=== PATIENT | male | born 1935 | race Caucasian/White ===

== ENCOUNTER → 2017-01-03 | Outpatient (CLI) | payer MEDICARE ==
[2017-01-03 13:48] LABS: CHCM 32.3; HCT 39.9 % (39.0-53.0); HDW 2.68; HGB 13.1 gm/dL (13.0-17.5); MCH 28.5 pg (25.0-35.0); MCHC 32.7 g/dL (31.0-37.0); MCV 87.1 fL (80.0-100.0); Mean Platelet Volume 8.2; RBC 4.59 m/uL (4.30-5.90); RDW 12.9 % (11.5-15.5); WBC 8.5 k/uL (3.8-10.6)
--- NOTE | 2017-01-03 13:57 | XR ---
EXAMINATION TYPE: XR chest 2V DATE OF EXAM: 01/03/2017 1:26 PM COMPARISON: Prior chest x-ray dated May 2012 HISTORY: Cough TECHNIQUE: Frontal and lateral views of the chest are obtained. FINDINGS: There is no focal air space opacity, pleural effusion, or pneumothorax seen. The cardiac silhouette size is within normal limits. Postop changes are noted at the cervical spine. There is a s shima curvature. Arthropathy noted at the acromioclavicular joints. Prominent lung volumes suggests u nderlying COPD. Suspect there are coronary artery calcifications. Postop changes noted to the abdomin al aorta. The osseous structures are intact. IMPRESSION: No acute cardiopulmonary process. Emphysema, follow-up as indicated. Coronary artery dis ease. Additional findings above.
[2017-01-03 14:01] LABS: ALT 37 U/L (21-72); AST 18 U/L (17-59); Alkaline Phosphatase 81 U/L (38-126); Anion Gap 11 mmol/L; Blood Urea Nitrogen 15 mg/dL (9-20); Calcium 9.1 mg/dL (8.4-10.2); Carbon Dioxide 28 mmol/L (22-30); Chloride 105 mmol/L (98-107); Cholesterol 130 mg/dL (<200); Glucose 141 mg/dL (74-99); HDL Cholesterol 35 mg/dL (40-60); Non-African American GFR(MDRD) >60 (>60 ml/min/1.73 sqM); Potassium 4.6 mmol/L (3.5-5.1); Sodium 144 mmol/L (137-145); Total Bilirubin 1.1 mg/dL (0.2-1.3); Total Protein 7.2 g/dL (6.3-8.2); Triglycerides 143 mg/dL (<150)
== END | disposition home or self-care (01) ==
LOC: LABWHC1 13:00
PROVIDERS: ATTEND Internal Medicine
DX: Z00.01 Encounter for general adult medical examination with abnormal findings (principal); E11.9 Type 2 diabetes mellitus without complications; I11.9 Hypertensive heart disease without heart failure; I25.10 Atherosclerotic heart disease of native coronary artery without angina pectoris; E78.2 Mixed hyperlipidemia; R61 Generalized hyperhidrosis
CPT/HCPCS: 36415; 71020; 80053; 80061; 82043; 83036; 84153; 85027

== ENCOUNTER → 2017-03-27 | Outpatient (CLI) | payer MEDICARE ==
[2017-03-27 13:33] LABS: ALT 30 U/L (21-72); AST 19 U/L (17-59); Alkaline Phosphatase 75 U/L (38-126); Anion Gap 10 mmol/L; Blood Urea Nitrogen 15 mg/dL (9-20); Calcium 9.7 mg/dL (8.4-10.2); Carbon Dioxide 29 mmol/L (22-30); Chloride 104 mmol/L (98-107); Cholesterol 147 mg/dL (<200); Glucose 126 mg/dL (74-99); HDL Cholesterol 40 mg/dL (40-60); Non-African American GFR(MDRD) >60 (>60 ml/min/1.73 sqM); Sodium 143 mmol/L (137-145); Total Bilirubin 1.1 mg/dL (0.2-1.3); Total Protein 7.2 g/dL (6.3-8.2); Triglycerides 208 mg/dL (<150)
== END | disposition home or self-care (01) ==
LOC: LABWHC1 12:49
PROVIDERS: ATTEND Internal Medicine Interventional Cardiology
DX: E78.2 Mixed hyperlipidemia (principal)
CPT/HCPCS: 36415; 80053; 80061

== ENCOUNTER → 2017-07-20 | Outpatient (CLI) | payer MEDICARE ==
[2017-07-20 12:56] LABS: Anion Gap 10 mmol/L; Blood Urea Nitrogen 19 mg/dL (9-20); Calcium 8.9 mg/dL (8.4-10.2); Carbon Dioxide 25 mmol/L (22-30); Chloride 106 mmol/L (98-107); Glucose 129 mg/dL (74-99); Non-African American GFR(MDRD) >60 (>60 ml/min/1.73 sqM); Potassium 4.2 mmol/L (3.5-5.1); Sodium 141 mmol/L (137-145)
[2017-07-20 16:33] LABS: Urine Creatinine 91.3 mg/dL
[2017-07-20 17:48] LABS: Hemoglobin A1C 5.9 % (4.2-6.1)
== END | disposition home or self-care (01) ==
LOC: LABWHC1 12:06
PROVIDERS: ATTEND Internal Medicine
DX: I11.9 Hypertensive heart disease without heart failure (principal); E11.9 Type 2 diabetes mellitus without complications; K21.0 Gastro-esophageal reflux disease with esophagitis
CPT/HCPCS: 36415; 80048; 82043; 82570; 83036

== ENCOUNTER → 2017-10-02 | Outpatient (CLI) | payer MEDICARE ==
[2017-10-02 13:13] LABS: ALT 34 U/L (21-72); AST 18 U/L (17-59); Cholesterol 139 mg/dL (<200); HDL Cholesterol 39 mg/dL (40-60)
== END | disposition home or self-care (01) ==
LOC: LABWHC1 11:43
PROVIDERS: ATTEND Internal Medicine Interventional Cardiology
DX: E78.2 Mixed hyperlipidemia (principal)
CPT/HCPCS: 36415; 80061; 84450; 84460

== ENCOUNTER → 2018-04-27 | Outpatient (CLI) | payer MEDICARE ==
[2018-04-27 10:59] LABS: ALT 30 U/L (21-72); AST 18 U/L (17-59); Albumin 3.9 g/dL (3.5-5.0); Alkaline Phosphatase 76 U/L (38-126); Anion Gap 10 mmol/L; Blood Urea Nitrogen 15 mg/dL (9-20); Calcium 8.6 mg/dL (8.4-10.2); Carbon Dioxide 25 mmol/L (22-30); Chloride 107 mmol/L (98-107); Cholesterol 114 mg/dL (<200); Glucose 165 mg/dL (74-99); HDL Cholesterol 30 mg/dL (40-60); LDL Cholesterol,Calculated 53 mg/dL (0-99); Potassium 4.5 mmol/L (3.5-5.1); Sodium 142 mmol/L (137-145); Total Bilirubin 1.1 mg/dL (0.2-1.3); Total Protein 6.3 g/dL (6.3-8.2); Triglycerides 154 mg/dL (<150)
== END | disposition home or self-care (01) ==
LOC: LABWHC1 10:18
PROVIDERS: ATTEND Internal Medicine Interventional Cardiology
DX: E78.2 Mixed hyperlipidemia (principal)
CPT/HCPCS: 36415; 80053; 80061

== ENCOUNTER 2018-05-29 13:41 | Emergency (ER) | payer MEDICARE, OTHER ==
[2018-05-29 13:47] VITALS: BP 118/66; PULSE 66; RESP 20; TEMP 98.5
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
--- NOTE | 2018-05-29 14:21 | XR ---
Left knee HISTORY: Trauma and pain, swelling 3 views of the left knee Bone mineralization and alignment are maintained. Mild joint space loss, marginal spurring compatible with osteoarthritic change. No sizable joint effusion. IMPRESSION: No fracture or dislocation is evident.
== END 2018-05-29 14:55 | disposition home or self-care (01) ==
LOC: EC 13:41
DX: S80.02XA Contusion of left knee, initial encounter (principal); I25.10 Atherosclerotic heart disease of native coronary artery without angina pectoris; E11.9 Type 2 diabetes mellitus without complications; E78.5 Hyperlipidemia, unspecified; I10 Essential (primary) hypertension; Z95.5 Presence of coronary angioplasty implant and graft; Z87.891 Personal history of nicotine dependence; Z79.82 Long term (current) use of aspirin; Z79.84 Long term (current) use of oral hypoglycemic drugs; Z79.899 Other long term (current) drug therapy; V89.2XXA Person injured in unspecified motor-vehicle accident, traffic, initial encounter; Y92.410 Unspecified street and highway as the place of occurrence of the external cause
CPT/HCPCS: 99283

== ENCOUNTER → 2018-07-13 | Outpatient (CLI) | payer MEDICARE ==
[2018-07-13 12:19] LABS: HGB 12.8 gm/dL (13.0-17.5); MCH 27.6 pg (25.0-35.0); MCHC 31.9 g/dL (31.0-37.0); MCV 86.5 fL (80.0-100.0); Mean Platelet Volume 7.9; Platelet Count 181 k/uL (150-450); RBC 4.62 m/uL (4.30-5.90); RDW 12.9 % (11.5-15.5); WBC 8.2 k/uL (3.8-10.6)
[2018-07-13 12:36] LABS: ALT 30 U/L (21-72); AST 18 U/L (17-59); Albumin 4.1 g/dL (3.5-5.0); Alkaline Phosphatase 77 U/L (38-126); Anion Gap 7 mmol/L; Blood Urea Nitrogen 20 mg/dL (9-20); Calcium 9.6 mg/dL (8.4-10.2); Carbon Dioxide 28 mmol/L (22-30); Chloride 105 mmol/L (98-107); Cholesterol 132 mg/dL (<200); Glucose 141 mg/dL (74-99); HDL Cholesterol 32 mg/dL (40-60); LDL Cholesterol,Calculated 74 mg/dL (0-99); Potassium 4.9 mmol/L (3.5-5.1); Sodium 140 mmol/L (137-145); Total Bilirubin 0.9 mg/dL (0.2-1.3); Triglycerides 132 mg/dL (<150)
== END | disposition home or self-care (01) ==
LOC: LABWHC1 11:28
PROVIDERS: ATTEND Internal Medicine
DX: Z00.00 Encounter for general adult medical examination without abnormal findings (principal); I11.9 Hypertensive heart disease without heart failure; E11.9 Type 2 diabetes mellitus without complications; E78.2 Mixed hyperlipidemia
CPT/HCPCS: 36415; 80053; 80061; 85027

== ENCOUNTER → 2018-10-22 | Outpatient (CLI) | payer MEDICARE | LOC: LABWHC1 12:12 | PROVIDERS: ATTEND Internal Medicine Interventional Cardiology | DX: E78.2 Mixed hyperlipidemia (principal) | CPT/HCPCS: 36415; 80061; 84450; 84460 ==

== ENCOUNTER 2018-12-19 21:20 | Inpatient (IN) | payer MEDICARE ==
[2018-12-19] MEDS ORDERED: HYDROmorphone 1 MG/ML 1 ML SYRINGE IVP STA (22:16)
--- NOTE | 2018-12-19 22:26 | ED ---
Back Pain HPI - General Source: patient, family Limitations: no limitations <Lucy Salinas - Last Filed: 12/20/18 01:41> <Keaton Velázquez - Last Filed: 12/21/18 08:27> - General Chief Complaint: Back Pain/Injury Stated Complaint: Fall Time Seen by Provider: 12/19/18 21:46 - History of Present Illness Initial Comments: 83-year-old male patient presents to the emergency department today for evaluation of left-sided back pain and abdominal pain. Patient states that on Monday he was in the garage when he fell backwards hitting the snowblower on the way down and then landing on the cement. Patient states he has been having left-sided back pain since, states now it is very difficult to move around due to the pain. Patient states he has had having a bandlike pain going on his lower abdomen since the fall as well. Patient states he did hit his head. He denies any loss of consciousness however states he has been having intermittent headaches since the injury. Denies any blurred or double vision. Denies any nausea or vomiting. Denies any numbness, tingling, or weakness to his extremities. Patient denies any radiation of pain down his legs. Denies any loss of bowel or bladder control. Denies any saddle anesthesia. Patient denies any hematuria, hematochezia, melena. Patient denies any recent rash, fever, chills, shortness breath, chest pain, abdominal pain, nausea, vomiting, diarrhea, constipation, numbness, tingling, dizziness, weakness, headache, visual changes, or any other complaints. (Lucy Salinas) - Related Data Home Medications Medication Instructions Recorded Confirmed Aspirin EC [Ecotrin Low Dose] 81 mg PO DAILY 05/29/18 12/19/18 Enalapril [Vasotec] 2.5 mg PO DAILY 05/29/18 12/19/18 Gabapentin [Neurontin] 300 mg PO TID 05/29/18 12/19/18 Simvastatin 40 mg PO HS 05/29/18 12/19/18 Vit A/Vit C/Vit E/Zinc/Copper 2 cap PO DAILY 05/29/18 12/19/18 [ICAPS SOFTGEL] glipiZIDE XL [Glucotrol Xl] 5 mg PO DAILY 05/29/18 12/19/18 Metoprolol Tartrate [Lopressor] 25 mg PO BID 12/19/18 12/19/18 Terazosin HCl 2 mg PO DAILY 12/19/18 12/19/18 metFORMIN HCL [Glucophage] 500 mg PO BID 12/19/18 12/19/18 Allergies Allergy/AdvReac Type Severity Reaction Status Date / Time No Known Allergies Allergy Verified 12/19/18 22:24 Review of Systems ROS Other: All systems not noted in ROS Statement are negative. <Lucy Salinas - Last Filed: 12/20/18 01:41> ROS Other: All systems not noted in ROS Statement are negative. <Keaton Velázquez - Last Filed: 12/21/18 08:27> ROS Statement: Those systems with pertinent positive or pertinent negative responses have been documented in the HPI. Past Medical History Past Medical History: Coronary Artery Disease (CAD), Diabetes Mellitus, Hyperlipidemia, Hypertension History of Any Multi-Drug Resistant Organisms: None Reported Past Surgical History: Heart Catheterization With Stent Past Psychological History: No Psychological Hx Reported Smoking Status: Former smoker Past Alcohol Use History: None Reported Past Drug Use History: None Reported <Lucy Salinas - Last Filed: 12/20/18 01:41> General Exam Limitations: no limitations General appearance: alert, in no apparent distress, other (Physical well- developed, well-nourished elderly male patient in no acute distress. Vital signs upon presentation are temperature 98.6F, pulse 96, respirations 20, blood pressure 146/68, pulse ox 95% on room air.) Eye exam: Present: normal appearance, PERRL, EOMI. Absent: scleral icterus, conjunctival injection, periorbital swelling ENT exam: Present: normal exam, normal oropharynx, mucous membranes moist Respiratory exam: Present: normal lung sounds bilaterally. Absent: respiratory distress, wheezes, rales, rhonchi, stridor Cardiovascular Exam: Present: regular rate, normal rhythm, normal heart sounds. Absent: systolic murmur, diastolic murmur, rubs, gallop, clicks GI/Abdominal exam: Present: soft, tenderness (Lower abdominal tenderness), normal bowel sounds. Absent: distended, guarding, rebound, rigid Extremities exam: Present: normal inspection, full ROM, normal capillary refill , other (Skin to the extremities is pink, warm, dry. Cap refills less than 3 seconds. Radial pulses 2+ and equal bilaterally. Posttibial pulses 2+ and equal bilaterally.). Absent: tenderness, pedal edema, joint swelling, calf tenderness Back exam: Present: normal inspection, tenderness (Tenderness from the left shoulder extending down to the left low back including flank tenderness), other (No flank ecchymosis). Absent: vertebral tenderness Neurological exam: Present: alert, oriented X3, CN II-XII intact Psychiatric exam: Present: normal affect, normal mood Skin exam: Present: warm, dry, intact, normal color. Absent: rash <Lucy Salinas - Last Filed: 12/20/18 01:41> Vital Signs 12/19/18 12/20/18 12/20/18 21:39 00:00 01:50 Temperature 98.6 F 98.8 F Pulse Rate 96 92 89 Respiratory 20 18 18 Rate Blood Pressure 146/68 161/80 138/81 O2 Sat by Pulse 95 94 L 96 Oximetry Medical Decision Making - Lab Data Result diagrams: 12/19/18 22:36 12/19/18 22:36 - Radiology Data Radiology results: report reviewed, image reviewed <Lucy Salinas - Last Filed: 12/20/18 01:41> - Lab Data Result diagrams: 12/19/18 22:36 12/19/18 22:36 <Keaton Velázquez - Last Filed: 12/21/18 08:27> - Medical Decision Making 83-year-old male patient presents to the emergency department today for evaluation of left-sided back pain, lower abdominal pain and intermittent headaches after expressing a fall on Monday. Physical examination did reveal left lateral back tenderness, left flank tenderness. There is lower abdominal tenderness as well. Lungs are clear to auscultation. Labs reviewed and are relatively unremarkable. CT of the chest, abdomen, pelvis with contrast was obtained and did reveal evidence of fractures to the eighth and ninth ribs. There is also evidence of bilateral patchy lower lobe infiltrates with a left- sided pleural effusion. Patient was hypoxic at 94% upon arrival. CT brain C- spine was obtained and showed no acute abnormalities. I did discuss findings and results with the patient. Given presence of pneumonia, pleural effusion, and rib fractures a saw he would benefit from inpatient admission with IV antibiotic administration. We will provide supplemental oxygen. My attending Dr. Velázquez did discuss the case with Dr. Folwers who accepts admission and requested pulmonary consult. (Lucy Salinas) I saw this patient in conjunction with the physician promotions assistant. I performed independent history and physical exam. Agree with case management. (Keaton Velázquez) - Lab Data Lab Results 12/19/18 12/19/18 12/19/18 Range/Units 22:30 22:36 22:36 WBC 8.6 (3.8-10.6) k/uL RBC 4.55 (4.30-5.90) m/uL Hgb 12.2 L (13.0-17.5) gm/dL Hct 38.7 L (39.0-53.0) % MCV 85.1 (80.0-100.0) fL MCH 26.8 (25.0-35.0) pg MCHC 31.5 (31.0-37.0) g/dL RDW 13.6 (11.5-15.5) % Plt Count 145 L (150-450) k/uL Neutrophils % 77 % Lymphocytes % 12 % Monocytes % 8 % Eosinophils % 2 % Basophils % 0 % Neutrophils # 6.6 (1.3-7.7) k/uL Lymphocytes # 1.0 (1.0-4.8) k/uL Monocytes # 0.7 (0-1.0) k/uL Eosinophils # 0.2 (0-0.7) k/uL Basophils # 0.0 (0-0.2) k/uL PT (9.0-12.0) sec INR (<1.2) APTT (22.0-30.0) sec Sodium 139 (137-145) mmol/L Potassium 4.5 (3.5-5.1) mmol/L Chloride 103 (98-107) mmol/L Carbon Dioxide 30 (22-30) mmol/L Anion Gap 6 mmol/L BUN 20 (9-20) mg/dL Creatinine 0.85 (0.66-1.25) mg/dL Est GFR (CKD-EPI)AfAm >90 (>60 ml/min/1.73 sqM) Est GFR (CKD-EPI)NonAf 82 (>60 ml/min/1.73 sqM) Glucose 157 H (74-99) mg/dL Calcium 9.9 (8.4-10.2) mg/dL Total Bilirubin 1.1 (0.2-1.3) mg/dL AST 22 (17-59) U/L ALT 27 (21-72) U/L Alkaline Phosphatase 80 (38-126) U/L Total Protein 6.8 (6.3-8.2) g/dL Albumin 3.9 (3.5-5.0) g/dL Urine Color Yellow Urine Appearance Clear (Clear) Urine pH 6.5 (5.0-8.0) Ur Specific [place] 1.026 (1.001-1.035) Urine Protein 1+ H (Negative) Urine Glucose (UA) Negative (Negative) Urine Ketones Trace H (Negative) Urine Blood Negative (Negative) Urine Nitrite Negative (Negative) Urine Bilirubin Negative (Negative) Urine Urobilinogen 3.0 (<2.0) mg/dL Ur Leukocyte Esterase Small H (Negative) Urine RBC 7 H (0-5) /hpf Urine WBC 7 H (0-5) /hpf Ur Squamous Epith Cells <1 (0-4) /hpf Hyaline Casts 7 H (0-2) /lpf Urine Mucus Many H (None) /hpf 12/19/18 Range/Units 22:36 WBC (3.8-10.6) k/uL RBC (4.30-5.90) m/uL Hgb (13.0-17.5) gm/dL Hct (39.0-53.0) % MCV (80.0-100.0) fL MCH (25.0-35.0) pg MCHC (31.0-37.0) g/dL RDW (11.5-15.5) % Plt Count (150-450) k/uL Neutrophils % % Lymphocytes % % Monocytes % % Eosinophils % % Basophils % % Neutrophils # (1.3-7.7) k/uL Lymphocytes # (1.0-4.8) k/uL Monocytes # (0-1.0) k/uL Eosinophils # (0-0.7) k/uL Basophils # (0-0.2) k/uL PT 9.7 (9.0-12.0) sec INR 0.9 (<1.2) APTT 23.1 (22.0-30.0) sec Sodium (137-145) mmol/L Potassium (3.5-5.1) mmol/L Chloride (98-107) mmol/L Carbon Dioxide (22-30) mmol/L Anion Gap mmol/L BUN (9-20) mg/dL Creatinine (0.66-1.25) mg/dL Est GFR (CKD-EPI)AfAm (>60 ml/min/1.73 sqM) Est GFR (CKD-EPI)NonAf (>60 ml/min/1.73 sqM) Glucose (74-99) mg/dL Calcium (8.4-10.2) mg/dL Total Bilirubin (0.2-1.3) mg/dL AST (17-59) U/L ALT (21-72) U/L Alkaline Phosphatase (38-126) U/L Total Protein (6.3-8.2) g/dL Albumin (3.5-5.0) g/dL Urine Color Urine Appearance (Clear) Urine pH (5.0-8.0) Ur Specific [place] (1.001-1.035) Urine Protein (Negative) Urine Glucose (UA) (Negative) Urine Ketones (Negative) Urine Blood (Negative) Urine Nitrite (Negative) Urine Bilirubin (Negative) Urine Urobilinogen (<2.0) mg/dL Ur Leukocyte Esterase (Negative) Urine RBC (0-5) /hpf Urine WBC (0-5) /hpf Ur Squamous Epith Cells (0-4) /hpf Hyaline Casts (0-2) /lpf Urine Mucus (None) /hpf - Radiology Data CT chest, abdomen, pelvis with contrast was obtained. Report was reviewed in its entirety. Impression by Dr. Lopez shows dilated thoracic esophagus unchanged compared to 05/23/2012 and consistent with reflux disease and esophageal dysfunction. Right renal cortical cyst increased compared to old exam. Multiple small calcified gallstones unchanged. Enlarged prostate. Mild T5 compression fracture probably not changed compared to old exam. Patchy bilateral lower lobe infiltrates and atelectasis with left pleural effusion. This appears new compared to old exam. There are acute fractures of the posterior left eighth and ninth ribs. 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 CT brain and C-spine without contrast was obtained. Report was reviewed in its entirety. Impression by Dr. Lopez shows mild atrophy. No acute intracranial abnormality. 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 No acute bony abnormality. No significant change compared to old exam. (Lucy Salinas) Disposition Decision to Admit Reason: Admit from [facility] Decision Date: 12/20/18 Decision Time: 01:21 <Lucy Salinas - Last Filed: 12/20/18 01:41> <Keaton Velázquez - Last Filed: 12/21/18 08:27> Clinical Impression: Multiple fractures of ribs, left side, initial encounter for closed fracture, Pneumonia of both lower lobes, Pleural effusion, left Disposition: ADMITTED IP TO THIS [facility] Condition: Serious
[2018-12-19 22:46] LABS: Basophils % (A) 0 %; Eosinophils # (A) 0.2 k/uL (0-0.7); Eosinophils % (A) 2 %; HCT 38.7 % (39.0-53.0); HGB 12.2 gm/dL (13.0-17.5); Lymphocytes % (A) 12 %; MCH 26.8 pg (25.0-35.0); MCHC 31.5 g/dL (31.0-37.0); MCV 85.1 fL (80.0-100.0); Mean Platelet Volume 8.6; Monocytes # (A) 0.7 k/uL (0-1.0); Monocytes % (A) 8 %; Neutrophils # (A) 6.6 k/uL (1.3-7.7); Neutrophils % (A) 77 %; Platelet Count 145 k/uL (150-450); RBC 4.55 m/uL (4.30-5.90); RDW 13.6 % (11.5-15.5); WBC 8.6 k/uL (3.8-10.6)
[2018-12-19 22:56] LABS: INR 0.9 (<1.2); Partial Thromboplastin Time 23.1 sec (22.0-30.0); Prothrombin Time 9.7 sec (9.0-12.0)
[2018-12-19 22:57] LABS: ALT 27 U/L (21-72); AST 22 U/L (17-59); Albumin 3.9 g/dL (3.5-5.0); Alkaline Phosphatase 80 U/L (38-126); Anion Gap 6 mmol/L; Blood Urea Nitrogen 20 mg/dL (9-20); Calcium 9.9 mg/dL (8.4-10.2); Carbon Dioxide 30 mmol/L (22-30); Chloride 103 mmol/L (98-107); Glucose 157 mg/dL (74-99); Potassium 4.5 mmol/L (3.5-5.1); Sodium 139 mmol/L (137-145); Total Bilirubin 1.1 mg/dL (0.2-1.3); Total Protein 6.8 g/dL (6.3-8.2)
[2018-12-19 23:06] LABS: Appearance,Urine Clear (Clear); Bilirubin,Urine Negative (Negative); Blood,Urine Negative (Negative); Color,Urine Yellow; Glucose,Urine (UA) Negative (Negative); Hyaline Casts,Urine 7 /lpf (0-2); Ketones,Urine Trace (Negative); Leukocyte Esterase,Urine Small (Negative); Mucus,Urine Many /hpf; Nitrite,Urine Negative (Negative); PH, Urine 6.5 (5.0-8.0); Protein,Urine 1+ (Negative); RBC,Urine 7 /hpf (0-5); Specific Gravity,Urine 1.026 (1.001-1.035); Squamous Epithelial Cell,Urine <1 /hpf (0-4); WBC,Urine 7 /hpf (0-5)
[2018-12-20] MEDS ORDERED: HYDROcodone/APAP 5-325MG 1 EACH TAB PO STA (00:06)
--- NOTE | 2018-12-20 00:09 | CT ---
EXAMINATION TYPE: CT ChestAbdPelvis w con DATE OF EXAM: 12/19/2018 COMPARISON: 05/23/2012 HISTORY: pt. fell from ladder on snowblower 2 days ago;evaluate for trauma. pt. c/o back pain CT DLP: 878.6 mGycm Automated exposure control for dose reduction was used. CONTRAST: CT scan of the chest, abdomen and pelvis is performed without Oral Contrast and with IV Contrast, pat ient injected with 100 mL of Isovue 300. FINDINGS: There is pulmonary emphysema. Thoracic aorta is atheromatous. There is no evidence of aneurysm or dis section. There is left pleural effusion. There is some infiltrate or atelectasis at the posterior compa g bases. There is moderate hiatal hernia. There is large thoracic esophagus with fluid level. There i s no pneumothorax. There is no evidence of a pulmonary mass. There is no pericardial effusion. There is 1 cm cyst anterior right lobe of the liver. Bile ducts are not dilated. Spleen appears willy l. There is no pancreatic mass. Gallbladder is contracted. There is no adrenal mass. Kidneys show satisfactory contrast opacification. There is 4.5 cm cyst uppe r pole right kidney. Abdominal aorta is atheromatous. There is intervertebral iliac artery endograft. There are numerous diverticula in the sigmoid colon. Prostate is enlarged. Prostate measures 6 cm. U rinary bladder distends smoothly. There is no free fluid in the pelvis. There is no evidence of a bow el obstruction. There is no inguinal hernia. There is no mesenteric edema. The appendix appears willy l. There is no sign of free air. There are spondylotic changes in the thoracic and lumbar spine. Ther e is 15% wedging of T5 vertebral body.: There is fracture left posterior eighth and ninth rib. 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 There is 4 cm aneurysm of the lower abdominal aorta. IMPRESSION: Dilated thoracic esophagus unchanged compared to 05/23/2012 and consistent with reflux dise ase and esophageal dysfunction. Right renal cortical cyst increased compared to old exam. Multiple small calcified gallstones unchang ed. Enlarged prostate. Mild T5 compression fracture probably not changed compared to old exam. Patchy bilateral lower lobe infiltrates and atelectasis with left pleural effusion. This appears new compared to old exam. There are acute fractures of the posterior left eighth and ninth ribs.
[2018-12-20] MEDS ORDERED: AZITHROMYCIN 500 MG in SODIUM CHLORIDE 0.9% 250 ML IVPB STA (01:01)
[2018-12-20] MEDS ORDERED: NALOXONE 0.4 MG/ML 1 ML VIAL IV PRN (01:11)
--- NOTE | 2018-12-20 01:26 | CT ---
EXAMINATION TYPE: CT brain cale soler DATE OF EXAM: 12/20/2018 COMPARISON: 05/23/2012 HISTORY: head and neck pain after fall x2 days ago. CT DLP: 1389.1 mGycm Automated exposure control for dose reduction was used. TECHNIQUE: CT scan of the head and cervical spine are performed without contrast. FINDINGS: There is mild cerebral cortical atrophy. There is no mass effect nor midline shift. There is no sign of intracranial hemorrhage. The calvarium is intact. There is partial opacification right maxillary sinus. There is some atrophy and encephalomalacia in the left temporal lobe. There is old anterior fusion surgery with a plate and screws from C3 to C5. There is narrowing and an terior spurring at C5-6 and C6-7. The facet joints are intact. The skull base appears intact. IMPRESSION: Mild atrophy. No acute intracranial abnormality. 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 No acute bony abnormality . No significant change compared to old exam.
[2018-12-20 03:10] VITALS: BMI 26.4
[2018-12-20 07:52] LABS: Glucose,Whole Blood 160 mg/dL (75-99)
[2018-12-20] MEDS: GABAPENTIN 300 MG CAP PO SCH ×3 (09:04→20:16)
[2018-12-20] MEDS: ASPIRIN 81 MG PO SCH (09:04)
[2018-12-20] MEDS: metFORMIN 500 MG TAB PO SCH ×2 (09:04→20:17)
[2018-12-20] MEDS: VIT A,C & E-LUTEIN-MINERALS 1 EACH TAB PO SCH (09:04)
[2018-12-20] MEDS: LISINOPRIL 5 MG TAB PO SCH (09:04)
[2018-12-20] MEDS: DOXAZOSIN 2 MG TAB PO SCH (09:04)
[2018-12-20] MEDS: HYDROcodone/APAP 5-325MG 1 EACH TAB PO PRN ×3 (09:10→20:23)
[2018-12-20] MEDS: METOPROLOL TARTRATE 25 MG TAB PO SCH ×2 (09:10→20:16)
--- NOTE | 2018-12-20 10:15 | P.CNPUL ---
<Jen Cantrell E - Last Filed: 12/20/18 10:03> History of Present Illness Consult date: 12/20/18 Requesting physician: Daron Flowers Reason for consult: pleural effusion Chief complaint: shortness of breath, pain History of present illness: HPI: This is an 83-year-old male patient being seen examined and evaluated today for consultation. This patient came in after he had a fall in his garage on Monday. The patient fell hitting the snowblower and he was approximately 2 steps up on a ladder. The patient has been having left-sided back pain ever since. He states he has had some difficulty with mobility due to the pain. Workup in the emergency room was completed with a CT of the chest abdomen and pelvis. That did reveal evidence of fractures to be a benign ribs. There is also some bilateral patchy lower lobe infiltrates with a small left-sided pleural effusion. These look more like pulmonary contusions rather than pneumonia. The patient states he has not had any shortness of breath cough congestion or sputum production prior to the fall. He had not been around any ill contacts. Denies any fevers, or chills. He does have a history of smoking approximately 1 pack per day for over 30 years however has not smoked in about 40 years. All labs and reports reviewed. Case is discussed with family who . Case was also discussed with attending Dr. Flowers. Review of Systems 14 point review of systems was completed and is negative unless noted above in HPI Past Medical History Past Medical History: Coronary Artery Disease (CAD), Cancer, Diabetes Mellitus, Hyperlipidemia, Hypertension Additional Past Medical History / Comment(s): Patient states he has prostate cancer, has chosen no treatment History of Any Multi-Drug Resistant Organisms: None Reported Past Surgical History: Heart Catheterization With Stent Additional Past Surgical History / Comment(s): Back surgery years ago, neck surgery appox 2010; patient had heart catheterization with stent, states approximately 1992; recalls he had stents in groin in 2002, 2004, 2006 Past Anesthesia/Blood Transfusion Reactions: No Reported Reaction Additional Past Anesthesia/Blood Transfusion Reaction / Comment(s): Patient aspirated post-surgically Past Psychological History: No Psychological Hx Reported Smoking Status: Former smoker Past Alcohol Use History: None Reported Past Drug Use History: None Reported - Past Family History Father Family Medical History: Cancer Mother Family Medical History: Diabetes Mellitus Medications and Allergies Home Medications Medication Instructions Recorded Confirmed Type Aspirin EC [Ecotrin Low Dose] 81 mg PO DAILY 05/29/18 12/19/18 History Enalapril [Vasotec] 2.5 mg PO DAILY 05/29/18 12/19/18 History Gabapentin [Neurontin] 300 mg PO TID 05/29/18 12/19/18 History Simvastatin 40 mg PO HS 05/29/18 12/19/18 History Vit A/Vit C/Vit E/Zinc/Copper 2 cap PO DAILY 05/29/18 12/19/18 History [ICAPS SOFTGEL] glipiZIDE XL [Glucotrol Xl] 5 mg PO DAILY 05/29/18 12/19/18 History Metoprolol Tartrate [Lopressor] 25 mg PO BID 12/19/18 12/19/18 History Terazosin HCl 2 mg PO DAILY 12/19/18 12/19/18 History metFORMIN HCL [Glucophage] 500 mg PO BID 12/19/18 12/19/18 History Allergies Allergy/AdvReac Type Severity Reaction Status Date / Time No Known Allergies Allergy Verified 12/19/18 22:24 Physical Exam Vitals: Vital Signs Temp Pulse Pulse Resp BP BP Pulse Ox 12/20/18 06:35 97.7 F 68 18 151/76 96 12/20/18 03:30 18 12/20/18 02:30 98.4 F 86 20 170/96 94 L 12/20/18 01:50 98.8 F 89 18 138/81 96 12/20/18 00:00 92 18 161/80 94 L 12/19/18 21:39 98.6 F 96 20 146/68 95 Intake and Output 12/19/18 12/20/18 12/20/18 22:59 06:59 14:59 Intake Total 400 Balance 400 Intake: Oral 400 Other: Voiding Method Toilet Urinal # Voids 2 # Bowel Movements 0 Weight 76.657 kg GENERAL EXAM: Alert, comfortable in no apparent distress. HEAD: Normocephalic. EYES: Normal reaction of pupils, equal size. NOSE: Clear with pink turbinates. THROAT: No erythema or exudates. NECK: No masses, no JVD. CHEST: No chest wall deformity. LUNGS: Equal air entry with no crackles, wheeze, rhonchi or dullness. Bases diminished CVS: S1 and S2 normal with no audible mumurs, regular rhythm. ABDOMEN: No hepatosplenomegaly, normal bowel sounds, no guarding or rigidity. EXTREMITIES: No edema noted, pedal pulses palpable. CENTRAL NERVOUS SYSTEM: No focal deficits, tone is normal in all 4 extremities. Results - Laboratory Findings CBC and BMP: 12/19/18 22:36 12/19/18 22:36 PT/INR, D-dimer PT 9.7 sec (9.0-12.0) 12/19/18 22:36 INR 0.9 (<1.2) 12/19/18 22:36 Abnormal lab findings: Abnormal Labs 12/19/18 12/19/18 12/19/18 22:30 22:36 22:36 Hgb 12.2 L Hct 38.7 L Plt Count 145 L Glucose 157 H POC Glucose (mg/dL) Urine Protein 1+ H Urine Ketones Trace H Ur Leukocyte Esterase Small H Urine RBC 7 H Urine WBC 7 H Hyaline Casts 7 H Urine Mucus Many H 12/20/18 07:24 Hgb Hct Plt Count Glucose POC Glucose (mg/dL) 160 H Urine Protein Urine Ketones Ur Leukocyte Esterase Urine RBC Urine WBC Hyaline Casts Urine Mucus - Diagnostic Findings CT scan - chest: report reviewed, image reviewed Assessment and Plan Assessment: Assessment Bilateral pulmonary contusions, doubtful of pneumonia Fractures of the eighth and ninth ribs Small left-sided pleural effusion COPD not acutely exacerbated Plan Patient is stable from pulmonary standpoint Small effusion no intervention needed for thoracentesis Medications have been reviewed and will be continued as ordered. Continue antibiotics prophylactically, may switch to oral on discharge Continue with pulmonary hygiene, coughing and deep breathing exercises, and supportive care. Supplemental oxygen to maintain oxygen saturations of 92% or better. Continue with incentive spirometer Albuterol every 6 hours via nebulizer GI and DVT prophylaxis. We will continue to monitor labs/results and adjust treatment as necessary. Thank you for this consultation we will continue to follow this patient with you I, the signing physician performed an examination of the patient, discussed and directed their management with the nurse practitioner. I have reviewed the nurse practitioner's note and agree with the documented findings, orders and plan of care. Nurse practitioner acting as a scribe the signing physician. <Navya Potts - Last Filed: 12/20/18 10:18> Physical Exam Osteopathic Statement: *. No significant issues noted on an osteopathic structural exam other than those noted in the History and Physical/Consult. Vitals: Vital Signs Temp Pulse Pulse Resp BP BP Pulse Ox 12/20/18 06:35 97.7 F 68 18 151/76 96 12/20/18 03:30 18 12/20/18 02:30 98.4 F 86 20 170/96 94 L 12/20/18 01:50 98.8 F 89 18 138/81 96 12/20/18 00:00 92 18 161/80 94 L 12/19/18 21:39 98.6 F 96 20 146/68 95 Intake and Output 12/19/18 12/20/18 12/20/18 22:59 06:59 14:59 Intake Total 400 Balance 400 Intake: Oral 400 Other: Voiding Method Toilet Urinal # Voids 2 # Bowel Movements 0 Weight 76.657 kg Results - Laboratory Findings CBC and BMP: 12/19/18 22:36 12/19/18 22:36 PT/INR, D-dimer PT 9.7 sec (9.0-12.0) 12/19/18 22:36 INR 0.9 (<1.2) 12/19/18 22:36 Abnormal lab findings: Abnormal Labs 12/19/18 12/19/18 12/19/18 22:30 22:36 22:36 Hgb 12.2 L Hct 38.7 L Plt Count 145 L Glucose 157 H POC Glucose (mg/dL) Urine Protein 1+ H Urine Ketones Trace H Ur Leukocyte Esterase Small H Urine RBC 7 H Urine WBC 7 H Hyaline Casts 7 H Urine Mucus Many H 12/20/18 07:24 Hgb Hct Plt Count Glucose POC Glucose (mg/dL) 160 H Urine Protein Urine Ketones Ur Leukocyte Esterase Urine RBC Urine WBC Hyaline Casts Urine Mucus Assessment and Plan Plan: Patient seen and examined. Patient denies feeling ill before his fall. He states he was good health. He denies any fevers and chills. Changes on computed tomography scan probably related to pulmonary contusion. Continue antibiotics at this time. Pain control for rib fractures. Incentive spirometry and pulmonary hygiene. Pleural effusion is too small for thoracentesis at this time. Would recommend follow-up computed tomography scan in 4-6 weeks to demonstrate resolution. Patient does have a history of asbestos exposure. Navya Potts,
[2018-12-20] MEDS: ALBUTEROL NEBULIZED 2.5 MG/3 ML INHALATION SCH ×3 (10:42→19:47)
[2018-12-20 11:50] LABS: Glucose,Whole Blood 187 mg/dL (75-99)
--- NOTE | 2018-12-20 12:29 | HP ---
HISTORY AND PHYSICAL DATE OF ADMISSION: 12/20/2018. HISTORY OF PRESENT ILLNESS: This is an 83-year-old white male, apparently he fell about 2 days ago and he was brought to the emergency room with complaints of severe left sided back pain. Apparently 2 days ago he fell in the garage. He fell backwards hitting the asset accountant and he landed on the cement floor and apparently he also hit his head when he fell. He started having severe left-sided back pain and it was difficult for him to move around because of the pain and he was brought to the emergency room. In the ER, the CT of the head did not show any acute changes. The CT of the chest showed fracture of the left posterior 8th and 9th ribs and also there was patchy bilateral infiltrate in the lower lobe. His CBC showed WBC count of 8.6, hemoglobin 12.2, platelet count 145,000. Sodium 139, potassium 4.5, BUN 20, and creatinine 0.85. Glucose 157. This patient was admitted to the hospital for further evaluation and treatment. PAST MEDICAL HISTORY: His past medical history reveals that he has a longstanding history of coronary artery disease, diabetes mellitus, hypertensive cardiovascular disease, cancer of the prostate and hyperlipidemia. CURRENT MEDICATION: His current medications include: 1. Vasotec 2.5 mg p.o. daily. 2. Neurontin 300 mg p.o. t.i.d. 3. Simvastatin 40 mg p.o. daily. 4. Multivitamin 1 daily. 5. Glipizide 5 mg daily. 6. Lopressor 25 mg b.i.d. 7. Terazosin 2 mg daily. 8. Metformin 500 mg p.o. b.i.d. ALLERGIES: He has no known drug allergies. He does not smoke and he does not drink alcohol. FAMILY HISTORY: Positive for diabetes and heart disease. REVIEW OF SYSTEMS: Patient complains of intermittent headaches since his fall and he has left back pain. His appetite has been good. Bowels regular. He has no shortness of breath or cough. He has no polyuria or dysuria. He has no neurological symptoms. PHYSICAL EXAMINATION: Physical examination reveals an 83-year-old white male, well nourished, and well. He is alert and oriented. There is no jaundice. There is no generalized lymphadenopathy. There are no petechia or bruises. Pulse 86 per minute, regular, blood pressure 146/68, temperature 98.6, respirations 20 per minute. EXAMINATION OF THE ENT: Negative. Neck is supple. There is no jugular venous distention. There is no goiter and there is no carotid bruit. Heart is in sinus rhythm. Lungs reveal diminished breath sounds of both bases and there is tenderness in the left lower back of the chest. ABDOMEN: Soft and nontender. There is no mass palpable. Examination of the lower extremities reveal no pitting edema. Neurological examination reveals no localizing signs. IMPRESSION: 1. Severe left low back pain. 2. Acute fracture of the left posterior 8th and 9th ribs. 3. Bilateral patchy infiltrate in the lower lobes. 4. Possible lower lobe pneumonia. 5. Coronary artery disease. 6. Diabetes mellitus. 7. Gastroesophageal reflux disease. 8. Hyperlipidemia. 9. Hypertensive cardiovascular disease. 10.History of cancer of the prostate. 11.Possible urinary tract infection with urinalysis showing increased WBC. PLAN: Patient will be admitted to the hospital and he will be placed back on his previous home medications and he will be started on IV antibiotics and will get a pulmonology consultation. He is currently on [place] for pain control. Overall prognosis is guarded. The diagnosis, prognosis and therapeutic plans were discussed in detail with the patient and also with his family. MMODL / IJN: [id number] /
--- NOTE | 2018-12-20 16:02 | P.GSCN ---
History of Present Illness Consult date: 12/20/18 Reason for Consult: Trauma status post fall Requesting physician: Daron Flowers History of present illness: CHIEF COMPLAINT: Status post fall HISTORY OF PRESENT ILLNESS: 83-year-old male who presented to the emergency room due to pain. Patient states he was in his garage on Monday when he fell off of a ladder approximately 3-4 feet off the ground. He has been experiencing left sided back pain since that time. Denies loss of consciousness. He denies abdominal pain. Denies nausea or vomiting. Denies fever or chills. Denies shortness of breath. Denies chest pain. PAST MEDICAL HISTORY: See list. PAST SURGICAL HISTORY: See list. MEDICATIONS: See list. ALLERGIES: See list. SOCIAL HISTORY: No illicit drug use. REVIEW OF SYSTEMS: CONSTITUTIONAL: Denies fever or chills. HEENT: Denies blurred vision, vision changes, or eye pain. Denies hemoptysis ENDOCRINE: Denies heat or cold intolerance. CARDIOVASCULAR: Denies chest pain or pressure. RESPIRATORY: Positive for left posterior chest wall pain. No shortness of breath. GASTROINTESTINAL: Denies abdominal pain. Denies nausea or vomiting. NEURO: Denies history of seizures. PSYCH: No depression or suicidal ideation HEMATOLOGIC: Denies bleeding disorders. LYMPHATIC: The patient denies any lumps and bumps around the neck. GENITOURINARY: Denies any blood in urine or increased urinary frequency. MUSCULOSKELETAL: Denies myalgias. Denies joint swelling. Denies decreased range of motion beyond patients baseline. SKIN: Denies pruitis. Denies rash. PHYSICAL EXAM: VITAL SIGNS: Currently stable. GENERAL: Well-developed in no acute distress. HEENT: No sclera icterus. Extraocular movements grossly intact. Moist buccal mucosa. Head is atraumatic, normocephalic. Hears conversational speech. No nasal drainage. NECK: Supple without lymphadenopathy. CHEST: Non-labored respirations and equal bilateral excursions. CARDIOVASCULAR: Regular rate with regular rhythm. Palpable 2+ radial pulses. ABDOMEN: Soft. Nondistended. MUSCULOSKELETAL: No clubbing, cyanosis or edema. NEUROLOGIC: No focal or lateralizing signs. Cranial nerves II through XII grossly intact. PSYCH: Appropriate affect. Alert and oriented to person, place and time. SKIN: Well perfused. Good skin turgor. ASSESSMENT: 1. Traumatic fall from ladder, approximately 3-4 feet per patient 2. Acute fracture of posterior left eighth and ninth rib PLAN: Pain control. Incentive spirometry. Activity as tolerated. Pulmonary on consult. Further recommendations pending patient course. Nurse practitioner note has been reviewed by physician. Signing provider agrees with the documented findings, assessment, and plan of care. Past Medical History Past Medical History: Coronary Artery Disease (CAD), Cancer, Diabetes Mellitus, Hyperlipidemia, Hypertension Additional Past Medical History / Comment(s): Patient states he has prostate cancer, has chosen no treatment History of Any Multi-Drug Resistant Organisms: None Reported Past Surgical History: Heart Catheterization With Stent Additional Past Surgical History / Comment(s): Back surgery years ago, neck surgery appox 2010; patient had heart catheterization with stent, states approximately 1992; recalls he had stents in groin in 2002, 2004, 2006 Past Anesthesia/Blood Transfusion Reactions: No Reported Reaction Additional Past Anesthesia/Blood Transfusion Reaction / Comm: Patient aspirated post-surgically Past Psychological History: No Psychological Hx Reported Smoking Status: Former smoker Past Alcohol Use History: None Reported Past Drug Use History: None Reported - Past Family History Father Family Medical History: Cancer Mother Family Medical History: Diabetes Mellitus Medications and Allergies Home Medications Medication Instructions Recorded Confirmed Type Aspirin EC [Ecotrin Low Dose] 81 mg PO DAILY 05/29/18 12/19/18 History Enalapril [Vasotec] 2.5 mg PO DAILY 05/29/18 12/19/18 History Gabapentin [Neurontin] 300 mg PO TID 05/29/18 12/19/18 History Simvastatin 40 mg PO HS 05/29/18 12/19/18 History Vit A/Vit C/Vit E/Zinc/Copper 2 cap PO DAILY 05/29/18 12/19/18 History [ICAPS SOFTGEL] glipiZIDE XL [Glucotrol Xl] 5 mg PO DAILY 05/29/18 12/19/18 History Metoprolol Tartrate [Lopressor] 25 mg PO BID 12/19/18 12/19/18 History Terazosin HCl 2 mg PO DAILY 12/19/18 12/19/18 History metFORMIN HCL [Glucophage] 500 mg PO BID 12/19/18 12/19/18 History Allergies Allergy/AdvReac Type Severity Reaction Status Date / Time No Known Allergies Allergy Verified 12/19/18 22:24 Surgical - Exam Vital Signs Temp Pulse Resp BP Pulse Ox 98.6 F 96 20 146/68 95 12/19/18 21:39 12/19/18 21:39 12/19/18 21:39 12/19/18 21:39 12/19/18 21:39 Results - Labs 12/19/18 22:36 12/19/18 22:36 Abnormal Lab Results - Last 24 Hours (Table) 12/19/18 12/19/18 12/19/18 Range/Units 22:30 22:36 22:36 Hgb 12.2 L (13.0-17.5) gm/dL Hct 38.7 L (39.0-53.0) % Plt Count 145 L (150-450) k/uL Glucose 157 H (74-99) mg/dL POC Glucose (mg/dL) (75-99) mg/dL Urine Protein 1+ H (Negative) Urine Ketones Trace H (Negative) Ur Leukocyte Esterase Small H (Negative) Urine RBC 7 H (0-5) /hpf Urine WBC 7 H (0-5) /hpf Hyaline Casts 7 H (0-2) /lpf Urine Mucus Many H (None) /hpf 12/20/18 12/20/18 Range/Units 07:24 11:35 Hgb (13.0-17.5) gm/dL Hct (39.0-53.0) % Plt Count (150-450) k/uL Glucose (74-99) mg/dL POC Glucose (mg/dL) 160 H 187 H (75-99) mg/dL Urine Protein (Negative) Urine Ketones (Negative) Ur Leukocyte Esterase (Negative) Urine RBC (0-5) /hpf Urine WBC (0-5) /hpf Hyaline Casts (0-2) /lpf Urine Mucus (None) /hpf Diabetes panel 12/19/18 Range/Units 22:36 Sodium 139 (137-145) mmol/L Potassium 4.5 (3.5-5.1) mmol/L Chloride 103 (98-107) mmol/L Carbon Dioxide 30 (22-30) mmol/L BUN 20 (9-20) mg/dL Creatinine 0.85 (0.66-1.25) mg/dL Glucose 157 H (74-99) mg/dL Calcium 9.9 (8.4-10.2) mg/dL AST 22 (17-59) U/L ALT 27 (21-72) U/L Alkaline Phosphatase 80 (38-126) U/L Total Protein 6.8 (6.3-8.2) g/dL Albumin 3.9 (3.5-5.0) g/dL Calcium panel 12/19/18 Range/Units 22:36 Calcium 9.9 (8.4-10.2) mg/dL Albumin 3.9 (3.5-5.0) g/dL Pituitary panel 12/19/18 Range/Units 22:36 Sodium 139 (137-145) mmol/L Potassium 4.5 (3.5-5.1) mmol/L Chloride 103 (98-107) mmol/L Carbon Dioxide 30 (22-30) mmol/L BUN 20 (9-20) mg/dL Creatinine 0.85 (0.66-1.25) mg/dL Glucose 157 H (74-99) mg/dL Calcium 9.9 (8.4-10.2) mg/dL Adrenal panel 12/19/18 Range/Units 22:36 Sodium 139 (137-145) mmol/L Potassium 4.5 (3.5-5.1) mmol/L Chloride 103 (98-107) mmol/L Carbon Dioxide 30 (22-30) mmol/L BUN 20 (9-20) mg/dL Creatinine 0.85 (0.66-1.25) mg/dL Glucose 157 H (74-99) mg/dL Calcium 9.9 (8.4-10.2) mg/dL Total Bilirubin 1.1 (0.2-1.3) mg/dL AST 22 (17-59) U/L ALT 27 (21-72) U/L Alkaline Phosphatase 80 (38-126) U/L Total Protein 6.8 (6.3-8.2) g/dL Albumin 3.9 (3.5-5.0) g/dL
[2018-12-20] MEDS: LIDOCAINE 5% PATCH TOPICAL SCH (17:06)
[2018-12-20 17:35] LABS: Glucose,Whole Blood 132 mg/dL (75-99)
[2018-12-20] MEDS: ATORVASTATIN 20 MG TAB PO SCH (20:17)
[2018-12-20 20:53] LABS: Glucose,Whole Blood 163 mg/dL (75-99)
[2018-12-21 07:22] LABS: Glucose,Whole Blood 153 mg/dL (75-99)
[2018-12-21] MEDS: ALBUTEROL NEBULIZED 2.5 MG/3 ML INHALATION SCH ×4 (08:03→20:11)
[2018-12-21] MEDS: GABAPENTIN 300 MG CAP PO SCH ×3 (08:04→21:19)
[2018-12-21] MEDS: metFORMIN 500 MG TAB PO SCH ×2 (08:04→20:08)
[2018-12-21] MEDS: VIT A,C & E-LUTEIN-MINERALS 1 EACH TAB PO SCH (08:04)
[2018-12-21] MEDS: LIDOCAINE 5% PATCH TOPICAL SCH (08:04)
[2018-12-21] MEDS: METOPROLOL TARTRATE 25 MG TAB PO SCH ×2 (08:04→20:08)
[2018-12-21] MEDS: LISINOPRIL 5 MG TAB PO SCH (08:04)
[2018-12-21] MEDS: DOXAZOSIN 2 MG TAB PO SCH (08:04)
[2018-12-21] MEDS: ASPIRIN 81 MG PO SCH (08:04)
[2018-12-21] MEDS ORDERED: AZITHROMYCIN 500 MG in SODIUM CHLORIDE 0.9% 250 ML IVPB SCH (09:00)
[2018-12-21] MEDS: ACETAMINOPHEN TAB 325 MG TAB PO PRN ×2 (11:35→20:09)
[2018-12-21] MEDS ORDERED: DOCUSATE 100 MG CAP PO PRN (12:46)
[2018-12-21 12:47] LABS: Glucose,Whole Blood 115 mg/dL (75-99)
[2018-12-21] MEDS ORDERED: Acetaminophen-Codeine 300-30mg TAB PO PRN (12:47)
--- NOTE | 2018-12-21 12:53 | P.PN ---
Subjective Progress Note Date: 12/21/18 CHIEF COMPLAINT: Status post fall HISTORY OF PRESENT ILLNESS: 83-year-old male who presented to the emergency room due to pain after falling 3-4 feet off a ladder. Patient remains stable this morning. Had some confusion overnight. Denies abdominal pain. Denies nausea or vomiting. Denies fever or chills. Denies shortness of breath. Denies chest pain. PHYSICAL EXAM: VITAL SIGNS: Currently stable. GENERAL: Well-developed in no acute distress. HEENT: No sclera icterus. Extraocular movements grossly intact. Moist buccal mucosa. Head is atraumatic, normocephalic. Hears conversational speech. No nasal drainage. NECK: Supple without lymphadenopathy. CHEST: Non-labored respirations and equal bilateral excursions. CARDIOVASCULAR: Regular rate with regular rhythm. Palpable 2+ radial pulses. ABDOMEN: Soft. Nondistended. MUSCULOSKELETAL: No clubbing, cyanosis or edema. NEUROLOGIC: No focal or lateralizing signs. Cranial nerves II through XII grossly intact. PSYCH: Appropriate affect. Alert and oriented. SKIN: Well perfused. Good skin turgor. ASSESSMENT: 1. Traumatic fall from ladder, approximately 3-4 feet per patient 2. Acute fracture of posterior left eighth and ninth rib PLAN: Pain control. Incentive spirometry. Activity as tolerated. Pulmonary on consult. Further recommendations pending patient course. Nurse practitioner note has been reviewed by physician. Signing provider agrees with the documented findings, assessment, and plan of care. Objective - Vital Signs Vital signs: Vital Signs Temp 98.3 F 12/21/18 06:15 Pulse 80 12/21/18 12:03 Resp 12 12/21/18 11:55 BP 158/86 12/21/18 06:15 Pulse Ox 95 12/21/18 08:03 Intake & Output 12/20/18 12/21/18 12/21/18 18:59 06:59 18:59 Intake Total 600 300 Balance 600 300 Intake: Oral 600 300 Other: Voiding Method Toilet Toilet Toilet Urinal Urinal Urinal # Voids 1 2 2 - Labs CBC & Chem 7: 12/19/18 22:36 12/19/18 22:36 Labs: Abnormal Lab Results - Last 24 Hours (Table) 12/20/18 12/20/18 12/21/18 Range/Units 17:25 20:46 07:20 POC Glucose (mg/dL) 132 H 163 H 153 H (75-99) mg/dL 12/21/18 Range/Units 12:44 POC Glucose (mg/dL) 115 H (75-99) mg/dL
--- NOTE | 2018-12-21 12:54 | PN ---
PROGRESS NOTE DATE OF SERVICE: 12/21/2018 He has some right-sided chest pain, but otherwise seems to be doing well. He had adequate incentive spirometry and denies shortness of breath. On physical examination, respiratory rate is 12, pulse rate of 76, temperature 98.3, blood pressure 158/86, O2 saturation on room air is 94%. HEENT is unremarkable. Chest reveals decreased breath sounds on the left base. Cardiovascular system is S1, S2. Abdomen is soft. There is no pedal edema. IMPRESSION: Left-sided pleural effusion with rib fractures due to fall. Continue incentive spirometry, increase activity level. Agree with possible discharge planning. MMODL / IJN: [id number] /
[2018-12-21 17:44] LABS: Glucose,Whole Blood 117 mg/dL (75-99)
[2018-12-21] MEDS: ATORVASTATIN 20 MG TAB PO SCH (20:08)
[2018-12-21 20:37] LABS: Glucose,Whole Blood 159 mg/dL (75-99)
--- NOTE | 2018-12-21 23:00 | PN ---
PROGRESS NOTE Attending physician Dr. Daron Flowers; covering physician Dr. Raza Moore. CHIEF COMPLAINT: Re-evaluation. HISTORY OF PRESENT ILLNESS: This is an 83-year-old gentleman who was admitted to the hospital with pain in the left chest after a fall. The patient has a fracture, eighth and ninth ribs posteriorly. He feels fairly well. He does use inspiratory spirometer without any difficulty. He only has pain when he coughs. Denies any other symptoms. REVIEW OF SYSTEMS: NEURO: Denies any headaches, dizziness. PSYCH: No anxiety. CARDIAC: No chest pain, angina, palpitations. RESPIRATORY: No shortness of breath, cough. GI: No nausea, vomiting, abdominal pain, diarrhea. : No symptoms of dysuria or hematuria. EXTREMITIES: Denies pain, edema. CONSTITUTIONAL: No fever or chills. PHYSICAL EXAMINATION: Pleasant gentleman, at present in no distress. Vital signs revealed temperature 98.3, pulse 79, respirations 18, blood pressure 158/86, pulse ox 94% on room air. HEENT: Normocephalic. NECK: No JVD. Chest examination is clear to auscultation with mild decreased air flow at the left base. CARDIAC: Normal S1, S2 with no gallops, murmurs. ABDOMEN: Soft. Bowel sounds present. Extremities reveal no edema, no tenderness. NEUROLOGIC: Awake, alert, oriented to place and person. Moves both upper and lower extremities well. LABORATORY ASSESSMENT: adequate range. ASSESSMENT: 1. Fractured left eighth and ninth ribs. 2. Fall at home. 3. Possible pulmonary contusion. PLAN: The patient is stable. Continue present medical regimen. Patient's condition discussed with the patient. Prognosis is guarded. He is not able to tolerate narcotics, but Tylenol plain is helping his pain, so we will continue that. The patient has potential discharge home tomorrow. MMODL / IJN: [id number] /
[2018-12-22 05:59] VITALS: BP 158/83; RESP 18; TEMP 97.3
[2018-12-22] MEDS: ALBUTEROL NEBULIZED 2.5 MG/3 ML INHALATION SCH (06:51)
[2018-12-22 07:04] VITALS: PULSE 86
--- NOTE | 2018-12-22 07:09 | XR ---
EXAMINATION TYPE: XR chest 2V DATE OF EXAM: 12/22/2018 COMPARISON: Chest x-ray January 03, 2017. CT December 19, 2018 HISTORY: Persistent left-sided chest pain after recent trauma. TECHNIQUE: Frontal and lateral views of the chest are obtained. FINDINGS: There is chronic parenchymal change with left basilar opacity redemonstrated. Right lung remains clear. The cardiac silhouette size is upper limits of normal with atherosclerotic thoracic ao rta. Displays posterior left lower rib fractures on CT are less well seen on plain films. IMPRESSION: Chronic emphysematous change with persistent small left pleural effusion and associated left basilar atelectasis and/or infiltrate. No significant change from most recent CT.
[2018-12-22 07:26] LABS: Glucose,Whole Blood 145 mg/dL (75-99)
[2018-12-22] MEDS: ASPIRIN 81 MG PO SCH (08:14)
[2018-12-22] MEDS: LISINOPRIL 5 MG TAB PO SCH (08:14)
[2018-12-22] MEDS: METOPROLOL TARTRATE 25 MG TAB PO SCH (08:14)
[2018-12-22] MEDS: metFORMIN 500 MG TAB PO SCH (08:14)
[2018-12-22] MEDS: GABAPENTIN 300 MG CAP PO SCH (08:17)
[2018-12-22] MEDS: VIT A,C & E-LUTEIN-MINERALS 1 EACH TAB PO SCH (08:17)
[2018-12-22] MEDS: DOXAZOSIN 2 MG TAB PO SCH (08:17)
[2018-12-22] MEDS ORDERED: AZITHROMYCIN 500 MG TAB PO SCH (09:00)
--- NOTE | 2018-12-22 13:04 | P.DS ---
Providers Date of admission: 12/20/18 01:05 Expected date of discharge: 12/22/18 Attending physician: Daron Flowers Consults: 12/20/18 01:12 Consult Physician Routine Consulting Provider: Dennys Vance Consult Reason/Comments: Pneumonia; Left pleural Effusion; Left sided rib fracture Do you want consulting provider notified?: Yes 12/20/18 13:25 Consult Physician Routine Consulting Provider: Camilo Crawford Consult Reason/Comments: rib fractures/trauma Do you want consulting provider notified?: Yes Primary care physician: Daron Flowers [facility] Hospital Course: This 83-year-old gentleman was admitted to the hospital by Dr. Daron Huizar. The patient had slipped and fallen from 11 of 3 steps. Then on to left side. There are no significant pain in the left chest. There was no associated shortness of breath or cough or hemoptysis. However the pain was significant when he took a deep breath or cough. In view of this he presents to the emergency room evaluation with a CAT scan suggests patient has evidence of rib fracture posterior eighth and ninth ribs. In the emergency room the patient had a CAT scan of the whole body practically H included CAT scan of the brain and C-spine chest abdomen and pelvis. There are numerous multiple other changes. Noted he had noted a dilated thoracic esophagus with hiatal hernia and unchanged from 12 Chest Did Reveal Evidence of a Left Pleural Fluid Which Was a New Finding. There Was Atelectasis Versus Infiltrate Left Base. Clinically Suggestive of Atelectasis. There Are Some Emphysematous Changes in the Chest. 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 There are spondolytic spine changes thoracolumbar spine patient had been started on Rocephin and Zithromax during the hospital stay were discontinued. No evidence of any infective process. Patient's repeat chest x-ray prior to discharge revealed stable changes in the chest. Patient is recommended to follow up with the Dr. Flowers this coming week. And as per recommendations from pulmonary and repeat CAT scan in 4-6 weeks. Patient's been instructed to come back to the hospital if he is short of breath or has any hemoptysis. Patient's pain was better controlled with Tylenol as the narcotics made him feel mildly confused Final diagnosis: 1. Left pulmonary contusion 2. Left posterior eighth and ninth rib fracture 3. COPD 4. Essential hypertension 5. Peripheral neuropathy 6. Right iliac artery aneurysm 7. Abdominal aortic aneurysm 8. Large hiatal hernia and gastroesophageal reflux disease 9. Mild chronic anemia 10. Mild thrombocytopenia Patient Condition at Discharge: Serious Plan - Discharge Summary New Discharge Prescriptions: New Acetaminophen Tab [Tylenol] 650 mg PO Q6HR PRN tab PRN Reason: Fever And/ Or Pain Lidocaine 5% Patch [Lidoderm 5% Patch] 1 patch TOPICAL DAILY #14 patch Continue Enalapril [Vasotec] 2.5 mg PO DAILY Vit A/Vit C/Vit E/Zinc/Copper [ICAPS SOFTGEL] 2 cap PO DAILY Aspirin EC [Ecotrin Low Dose] 81 mg PO DAILY glipiZIDE XL [Glucotrol XL] 5 mg PO DAILY Simvastatin 40 mg PO HS Gabapentin [Neurontin] 300 mg PO TID Metoprolol Tartrate [Lopressor] 25 mg PO BID metFORMIN HCL [Glucophage] 500 mg PO BID Terazosin HCl 2 mg PO DAILY Discharge Medication List Aspirin EC [Ecotrin Low Dose] 81 mg PO DAILY 05/29/18 [History] Enalapril [Vasotec] 2.5 mg PO DAILY 05/29/18 [History] Gabapentin [Neurontin] 300 mg PO TID 05/29/18 [History] Simvastatin 40 mg PO HS 05/29/18 [History] Vit A/Vit C/Vit E/Zinc/Copper [ICAPS SOFTGEL] 2 cap PO DAILY 05/29/18 [History] glipiZIDE XL [Glucotrol XL] 5 mg PO DAILY 05/29/18 [History] Metoprolol Tartrate [Lopressor] 25 mg PO BID 12/19/18 [History] Terazosin HCl 2 mg PO DAILY 12/19/18 [History] metFORMIN HCL [Glucophage] 500 mg PO BID 12/19/18 [History] Acetaminophen Tab [Tylenol] 650 mg PO Q6HR PRN tab 12/22/18 [Rx] Lidocaine 5% Patch [Lidoderm 5% Patch] 1 patch TOPICAL DAILY #14 patch 12/22/18 [Rx] Follow up Appointment(s)/Referral(s): Daron Flowers MD [Primary Care Provider] - 1-2 days Patient Instructions/Handouts: Viral Pneumonia (DC), Rib Fracture (DC), Pleural Effusion (DC) Discharge Disposition: HOME SELF-CARE
== END 2018-12-22 09:58 | disposition home or self-care (01) | DRG 206 ==
LOC: EC 21:20 → 4MS4W 12-20 01:05
PROVIDERS: ADMIT Internal Medicine; ATTEND Internal Medicine
DX: S27.321A Contusion of lung, unilateral, initial encounter (principal); S22.42XA Multiple fractures of ribs, left side, initial encounter for closed fracture; J90 Pleural effusion, not elsewhere classified; D64.9 Anemia, unspecified; D69.6 Thrombocytopenia, unspecified; E78.5 Hyperlipidemia, unspecified; E11.42 Type 2 diabetes mellitus with diabetic polyneuropathy; I11.9 Hypertensive heart disease without heart failure; I25.10 Atherosclerotic heart disease of native coronary artery without angina pectoris; I71.4 Abdominal aortic aneurysm, without rupture; I72.3 Aneurysm of iliac artery; K21.9 Gastro-esophageal reflux disease without esophagitis; K44.9 Diaphragmatic hernia without obstruction or gangrene; K57.30 Diverticulosis of large intestine without perforation or abscess without bleeding; R09.02 Hypoxemia; J43.9 Emphysema, unspecified; W11.XXXA Fall on and from ladder, initial encounter; Y92.015 Private garage of single-family (private) house as the place of occurrence of the external cause; Z79.82 Long term (current) use of aspirin; Z79.84 Long term (current) use of oral hypoglycemic drugs; Z79.899 Other long term (current) drug therapy; Z83.3 Family history of diabetes mellitus; Z85.46 Personal history of malignant neoplasm of prostate; Z87.891 Personal history of nicotine dependence; R40.2362 Coma scale, best motor response, obeys commands, at arrival to emergency department; R40.2142 Coma scale, eyes open, spontaneous, at arrival to emergency department; R40.2252 Coma scale, best verbal response, oriented, at arrival to emergency department; Z95.5 Presence of coronary angioplasty implant and graft
CPT/HCPCS: 36415; 70450; 71046; 71260; 72125; 74177; 80053; 81001; 85025; 85610; 85730; 94640; 94760; 96365; 96367; 96375; 99284

== ENCOUNTER → 2019-01-15 | Outpatient (CLI) | payer MEDICARE ==
--- NOTE | 2019-01-15 15:26 | XR ---
EXAMINATION TYPE: XR chest 2V DATE OF EXAM: 01/15/2019 COMPARISON: Prior chest x-ray 12/22/2018 HISTORY: Chest pain, left rib fracture TECHNIQUE: Frontal and lateral views of the chest are obtained. FINDINGS: There is improvement in aeration at the left lung base. Prominent lung lines compatible wi th underlying COPD. Aorta is dense, tortuous and aneurysmal as on previous. No pneumothorax or pleura l effusion. Patient's rib fractures are not well seen. IMPRESSION: Improved aeration. Emphysema. Aortic aneurysm.
== END | disposition home or self-care (01) ==
LOC: RADXRMAIN 12:53
PROVIDERS: ATTEND Internal Medicine
DX: J43.9 Emphysema, unspecified (principal)
CPT/HCPCS: 71046

== ENCOUNTER → 2019-04-30 | Outpatient (CLI) | payer MEDICARE ==
[2019-04-30 16:23] LABS: African American GFR (CKD) 102.6 (60.0-200.0); Albumin 3.8 g/dL (3.80-4.90); Albumin/Globulin Ratio 1.81 (1.60-3.17); Anion Gap 7.4 mmol/L (4.00-12.00); BUN/Creat Ratio 14.29 Ratio (12.00-20.00); Calcium 8.6 mg/dL (8.7-10.3); Carbon Dioxide 25.6 mmol/L (21.6-31.8); Globulin 2.1 g/dL (1.6-3.3); LDL Cholesterol,Calculated 68.4 mg/dL (0.0-131.0); Potassium 4.4 mmol/L (3.5-5.5); Total Bilirubin 0.5 mg/dL (0.3-1.2); Total Protein 5.9 g/dL (6.2-8.2); VLDL Calculation 20.6 mg/dL (5.00-40.00)
== END | disposition home or self-care (01) ==
LOC: LABWHC1 11:42
PROVIDERS: ATTEND Internal Medicine Interventional Cardiology
DX: E78.2 Mixed hyperlipidemia (principal)
CPT/HCPCS: 36415; 80053; 80061

== ENCOUNTER → 2019-09-09 | Outpatient (CLI) | payer MEDICARE ==
[2019-09-09 13:52] LABS: Anisocytosis Slight; Basophils % (A) 0 %; Eosinophils # (A) 0.1 k/uL (0-0.7); Eosinophils % (A) 2 %; HGB 12.6 gm/dL (13.0-17.5); Lymphocytes % (A) 17 %; MCH 26.7 pg (25.0-35.0); MCHC 33.3 g/dL (31.0-37.0); MCV 80.3 fL (80.0-100.0); Microcytosis Slight; Monocytes # (A) 0.5 k/uL (0-1.0); Monocytes % (A) 8 %; Neutrophils # (A) 4.3 k/uL (1.3-7.7); Neutrophils % (A) 72 %; Platelet Count 142 k/uL (150-450); RBC 4.73 m/uL (4.30-5.90); RDW 16.5 % (11.5-15.5)
[2019-09-09 14:18] LABS: Appearance,Urine Clear (Clear); Bilirubin,Urine Negative (Negative); Blood,Urine Negative (Negative); Color,Urine Yellow; Glucose,Urine (UA) Negative (Negative); Ketones,Urine Negative (Negative); Leukocyte Esterase,Urine Trace (Negative); Mucus,Urine Rare /hpf; Nitrite,Urine Negative (Negative); PH, Urine 5.5 (5.0-8.0); Protein,Urine Negative (Negative); RBC,Urine 1 /hpf (0-5); Specific Gravity,Urine 1.016 (1.001-1.035); Urobilinogen,Urine <2.0 mg/dL (<2.0); WBC,Urine 1 /hpf (0-5)
[2019-09-09 14:53] LABS: Erythrocyte Sedimentation Rate 15 mm/hr (0-15)
[2019-09-09 18:45] LABS: ALT 18 U/L (10-49); AST 20 U/L (14-35); African American GFR (CKD) 96.4 (60.0-200.0); Albumin/Globulin Ratio 2.05 (1.60-3.17); Alkaline Phosphatase 99 U/L (41-126); BUN/Creat Ratio 18.75 Ratio (12.00-20.00); C Reactive Protein <0.4 mg/dL (0.0-0.8); Calcium 9.5 mg/dL (8.7-10.3); Carbon Dioxide 26.7 mmol/L (21.6-31.8); Chloride 106 mmol/L (96-109); Chol/HDL Ratio 3.61; Cholesterol 137 mg/dL (0-200); Creatine Kinase 85 U/L (35-257); Globulin 2.1 g/dL (1.6-3.3); Glucose 135 mg/dL (70-110); LDL Cholesterol,Calculated 66.4 mg/dL (0.0-131.0); Magnesium 1.8 mg/dL (1.5-2.4); Non-African American GFR(CKD) 83.2 (60.0-200.0); Phosphorus 3.8 mg/dL (2.4-5.1); Potassium 4.7 mmol/L (3.5-5.5); Sodium 138 mmol/L (135-145); Total Bilirubin 1.1 mg/dL (0.3-1.2); Total Protein 6.4 g/dL (6.2-8.2); Uric Acid 6.1 mg/dL (3.7-8.7)
[2019-09-09 21:01] LABS: Urine Creatinine 156.6 mg/dL
[2019-09-09 22:55] LABS: Hemoglobin A1C 6.2 % (4.0-6.0)
== END | disposition home or self-care (01) ==
LOC: LABWHC1 12:20
PROVIDERS: ATTEND Internal Medicine
DX: D64.9 Anemia, unspecified (principal); E11.9 Type 2 diabetes mellitus without complications; J44.9 Chronic obstructive pulmonary disease, unspecified; E78.5 Hyperlipidemia, unspecified; I10 Essential (primary) hypertension; E03.9 Hypothyroidism, unspecified; E55.9 Vitamin D deficiency, unspecified; C61 Malignant neoplasm of prostate; M10.9 Gout, unspecified
CPT/HCPCS: 80061; 80053; 85652; 84443; 82550; 83735; 84100; 84550; 85025; 86140; 81001; 82306; 82043; 82570; 83036; 36415; G0103

== ENCOUNTER → 2019-12-02 | Outpatient (CLI) | payer MEDICARE ==
[2019-12-02 19:35] LABS: Chol/HDL Ratio 3.62; LDL Cholesterol,Calculated 61.6 mg/dL (0.0-131.0); VLDL Calculation 27.4 mg/dL (5.00-40.00)
== END | disposition home or self-care (01) ==
LOC: LABWHC1 11:47
PROVIDERS: ATTEND Internal Medicine Interventional Cardiology
DX: E78.2 Mixed hyperlipidemia (principal)
CPT/HCPCS: 36415; 80061; 84450; 84460

== ENCOUNTER → 2020-05-13 | Outpatient (CLI) | payer MEDICARE ==
[2020-05-13 12:36] LABS: Basophils % (A) 1 %; Eosinophils # (A) 0.1 k/uL (0-0.7); Eosinophils % (A) 3 %; HCT 38.3 % (39.0-53.0); HGB 11.7 gm/dL (13.0-17.5); Hypochromasia Slight; Lymphocytes # (A) 0.9 k/uL (1.0-4.8); Lymphocytes % (A) 19 %; MCH 26.2 pg (25.0-35.0); MCHC 30.6 g/dL (31.0-37.0); MCV 85.7 fL (80.0-100.0); Monocytes # (A) 0.3 k/uL (0-1.0); Monocytes % (A) 6 %; Neutrophils # (A) 3.5 k/uL (1.3-7.7); Neutrophils % (A) 71 %; Platelet Count 124 k/uL (150-450); RBC 4.47 m/uL (4.30-5.90); RDW 13.9 % (11.5-15.5); WBC 4.9 k/uL (3.8-10.6)
[2020-05-13 12:41] LABS: Appearance,Urine Clear (Clear); Bilirubin,Urine Negative (Negative); Blood,Urine Negative (Negative); Color,Urine Yellow; Glucose,Urine (UA) Negative (Negative); Ketones,Urine Negative (Negative); Leukocyte Esterase,Urine Negative (Negative); Nitrite,Urine Negative (Negative); PH, Urine 6.5 (5.0-8.0); Protein,Urine Negative (Negative); Specific Gravity,Urine 1.017 (1.001-1.035); Urobilinogen,Urine <2.0 mg/dL (<2.0)
[2020-05-13 13:49] LABS: Erythrocyte Sedimentation Rate 17 mm/hr (0-15)
[2020-05-13 20:42] LABS: African American GFR (CKD) 96.4 (60.0-200.0); Albumin/Globulin Ratio 1.82 (1.60-3.17); Anion Gap 9.6 mmol/L (4.00-12.00); Calcium 8.6 mg/dL (8.7-10.3); Carbon Dioxide 24.4 mmol/L (21.6-31.8); Chol/HDL Ratio 4.1; Globulin 2.2 g/dL (1.6-3.3); Magnesium 1.9 mg/dL (1.5-2.4); Non-African American GFR(CKD) 83.2 (60.0-200.0); Potassium 4.5 mmol/L (3.5-5.5); Total Bilirubin 1.1 mg/dL (0.3-1.2); Total Protein 6.2 g/dL (6.2-8.2)
[2020-05-13 21:53] LABS: Hemoglobin A1C 6.8 % (4.0-6.0)
== END | disposition home or self-care (01) ==
LOC: LABWHC1 11:36
PROVIDERS: ATTEND Internal Medicine Interventional Cardiology
DX: C61 Malignant neoplasm of prostate (principal); D63.0 Anemia in neoplastic disease; N40.0 Benign prostatic hyperplasia without lower urinary tract symptoms; I10 Essential (primary) hypertension; E11.65 Type 2 diabetes mellitus with hyperglycemia; N39.0 Urinary tract infection, site not specified; E78.2 Mixed hyperlipidemia
CPT/HCPCS: 36415; 80053; 80061; 81003; 83036; 83735; 84153; 84443; 85025; 85652; 87086

== ENCOUNTER → 2020-10-28 | Outpatient (CLI) | payer MEDICARE ==
[2020-10-29 04:22] LABS: African American GFR (CKD) 91.2 (60.0-200.0); Albumin/Globulin Ratio 1.9 (1.60-3.17); Anion Gap 10.6 mmol/L (4.00-12.00); BUN/Creat Ratio 13.33 Ratio (12.00-20.00); Calcium 8.9 mg/dL (8.7-10.3); Carbon Dioxide 25.4 mmol/L (21.6-31.8); Chol/HDL Ratio 3.16; Globulin 2.1 g/dL (1.6-3.3); Non-African American GFR(CKD) 78.7 (60.0-200.0); Potassium 4.5 mmol/L (3.5-5.5); Total Protein 6.1 g/dL (6.2-8.2)
== END | disposition home or self-care (01) ==
LOC: LABWHC1 14:10
PROVIDERS: ATTEND Internal Medicine Interventional Cardiology
DX: E78.2 Mixed hyperlipidemia (principal)
CPT/HCPCS: 36415; 80053; 80061

== ENCOUNTER → 2021-01-04 | Outpatient (CLI) | payer MEDICARE ==
[2021-01-04 23:22] LABS: Hemoglobin A1C 6.6 % (4.0-6.0)
== END | disposition home or self-care (01) ==
LOC: LABWHC1 13:23
PROVIDERS: ATTEND Internal Medicine
DX: E11.65 Type 2 diabetes mellitus with hyperglycemia (principal)
CPT/HCPCS: 36415; 83036

== ENCOUNTER → 2021-05-11 | Outpatient (CLI) | payer MEDICARE ==
[2021-05-12 00:40] LABS: Chol/HDL Ratio 4.39; LDL Cholesterol,Calculated 79.4 mg/dL (0.0-131.0); VLDL Calculation 25.6 mg/dL (5.00-40.00)
== END | disposition home or self-care (01) ==
LOC: LABWHC1 12:00
PROVIDERS: ATTEND Internal Medicine Interventional Cardiology
DX: E78.2 Mixed hyperlipidemia (principal)
CPT/HCPCS: 36415; 80061; 84450; 84460

== ENCOUNTER → 2021-05-24 | Outpatient (CLI) | payer MEDICARE ==
[2021-05-24 12:08] LABS: Protein/Creatinine Ratio,Urine 0.06
[2021-05-24 19:00] LABS: ALT 15 U/L (10-49); AST 19 U/L (14-35); African American GFR (CKD) 91.2 (60.0-200.0); Albumin/Globulin Ratio 1.95 (1.60-3.17); Alkaline Phosphatase 94 U/L (41-126); BUN/Creat Ratio 24.44 Ratio (12.00-20.00); C Reactive Protein <0.4 mg/dL (0.0-0.8); Calcium 8.7 mg/dL (8.7-10.3); Carbon Dioxide 22.9 mmol/L (21.6-31.8); Chloride 108 mmol/L (96-109); Chol/HDL Ratio 4.28; Cholesterol 124 mg/dL (0-200); Creatine Kinase 118 U/L (35-257); Globulin 2.1 g/dL (1.6-3.3); Glucose 179 mg/dL (70-110); LDL Cholesterol,Calculated 70.2 mg/dL (0.0-131.0); Non-African American GFR(CKD) 78.7 (60.0-200.0); Potassium 4.3 mmol/L (3.5-5.5); Prostate Specific Antigen 9.1 ng/mL (0.0-6.5); Sodium 140 mmol/L (135-145); Total Bilirubin 0.9 mg/dL (0.3-1.2); Total Protein 6.2 g/dL (6.2-8.2)
[2021-05-24 19:15] LABS: Basophils # (A) 0.02 X 10*3/uL (0.00-0.10); Basophils % (A) 0.4 %; Eosinophils # (A) 0.15 X 10*3/uL (0.04-0.35); Eosinophils % (A) 2.9 %; HCT 38.1 % (39.6-50.0); HGB 11.9 g/dL (13.0-17.0); Lymphocytes # (A) 0.95 X 10*3/uL (0.90-5.00); Lymphocytes % (A) 18.6 %; MCH 26.6 pg (27.0-32.0); MCHC 31.2 g/dL (32.0-37.0); MCV 85.2 fL (80.0-97.0); Mean Platelet Volume 11.2 fL (9.5-12.2); Monocytes # (A) 0.44 X 10*3/uL (0.20-1.00); Monocytes % (A) 8.6 %; Neutrophils # (A) 3.53 X 10*3/uL (1.80-7.70); Neutrophils % (A) 69.3 %; Platelet Count 130 X 10*3/uL (140-440); RBC 4.47 X 10*6/uL (4.40-5.60); RDW 14.2 % (11.5-14.5)
[2021-05-24 19:42] LABS: Microalbumin Creatinine Ratio <30 mg/g Creat (0-30); Urine Creatinine 120.6 mg/dL
[2021-05-24 20:07] LABS: Erythrocyte Sedimentation Rate 8 mm/Hr (0-20)
[2021-05-24 21:12] LABS: Hemoglobin A1C 6.3 % (4.0-6.0)
== END | disposition home or self-care (01) ==
LOC: LABWHC1 11:27
PROVIDERS: ATTEND Internal Medicine Interventional Cardiology
DX: Z00.00 Encounter for general adult medical examination without abnormal findings (principal); I10 Essential (primary) hypertension; E11.65 Type 2 diabetes mellitus with hyperglycemia; E78.5 Hyperlipidemia, unspecified; E03.9 Hypothyroidism, unspecified; E87.8 Other disorders of electrolyte and fluid balance, not elsewhere classified; E55.9 Vitamin D deficiency, unspecified; R80.9 Proteinuria, unspecified
CPT/HCPCS: 36415; 80053; 80061; 82043; 82272; 82306; 82550; 82570; 83036; 83735; 84153; 84156; 84443; 85025; 85652; 86140

== ENCOUNTER → 2021-10-05 | Outpatient (CLI) | payer MEDICARE | END | disposition home or self-care (01) | LOC: LABWHC1 11:02 | PROVIDERS: ATTEND Urology | DX: R97.20 Elevated prostate specific antigen [PSA] (principal) | CPT/HCPCS: 36415; 84153 ==

== ENCOUNTER → 2021-11-08 | Outpatient (CLI) | payer MEDICARE ==
[2021-11-08 08:03] LABS: African American GFR (CKD) >90 (>60 ml/min/1.73 sqM); Blood Urea Nitrogen 17 mg/dL (9-20); Non-African American GFR(CKD) 84 (>60 ml/min/1.73 sqM)
--- NOTE | 2021-11-08 12:07 | CT ---
EXAMINATION TYPE: CT pelvis w con DATE OF EXAM: 11/08/2021 COMPARISON: 12/19/2018 HISTORY: 86-year-old male C6 1, Prostate cancer TECHNIQUE: Contiguous axial scanning of the pelvis following administration of 100 ml Isovue 300 IV c ontrast. Delayed images through the bladder and coronal/sagittal reconstructions performed. CT DLP: 533.6 mGycm Automated exposure control for dose reduction was used. FINDINGS: Partially visualized cyst posterior right kidney. Stable 3.7 cm cyst posterior lower pole left kidney . Aortobiiliac endovascular stent graft redemonstrated. Aneurysmal quinault sac measuring 5.2 cm versus 4 .3 cm, previously. The right lateral proximal landing zone is pulled away from the wall of the abdomi nal aorta, further coronal image 24. A type I A endoleak is not excluded. The stented right common il iac artery remains aneurysmal at 2.6 cm. Moderate stool burden. Oral contrast material progressed to the cecum. Sigmoid diverticulosis. Redund ant distal sigmoid colon. Prominent pericolonic vessels. No definite inflammation. Bladder is urine distended. Prostatomegaly at 6.4 cm length versus 6.2 cm on 12/19/2018. There are 1.4 cm area of nodular enhancem ent especially along the left anterior aspect, axial image 49. Multiple pelvic phleboliths. Small indirect fat-containing left inguinal hernia. Surgical clips along the left greater than right inguinal regions. No pelvic lymphadenopathy or abnormal fluid collection is identified. Bones: Mild degenerative change of both hips. Posterior bony fusion changes L4-S1 levels. IMPRESSION: 1. RELATIVELY SIMILAR PROSTATOMEGALY AT 6.4 CM WIDE VERSUS 6.2 CM, PREVIOUSLY. SOME INTERNAL NODULAR AREAS OF ENHANCEMENT ARE MORE PRONOUNCED. THIS COULD REPRESENT BPH. CORRELATE WITH PSA VALUES TO EXCL UDE FOCI OF PROSTATE CANCER. NO SUSPICIOUS PELVIC LYMPHADENOPATHY. 2. SIGMOID DIVERTICULOSIS WITHOUT ACUTE DIVERTICULITIS. REDEMONSTRATED SMALL FAT-CONTAINING INDIRECT LEFT INGUINAL HERNIA. 3. ABDOMINAL AORTOBIILIAC ENDOVASCULAR STENT GRAFT. THE ANEURYSMAL LOWER [place] SAC MEASURES 5.2 CM VERSUS 4.3 CM ON 12/19/2018. CONSIDER A TYPE IA ENDOLEAK THE RIGHT LATERAL PROXIMAL LANDING ZONE IS PULLED AWAY FROM THE WALL OF THE ABDOMINAL AORTA.
--- NOTE | 2021-11-08 14:34 | NM ---
EXAMINATION TYPE: NM bone scan whole body DATE OF EXAM: 11/08/2021 COMPARISON: 09/15/2014 HISTORY: Prostate cancer Delayed whole-body scanning was performed following the injection of 21.9 mCi Tc 99m MDP. Images acq uired 5 hours post injection. FINDINGS: There again noted is multifocal areas of abnormal uptake throughout the thoracic and lumbar and lower cervical vertebral, which are nonspecific but likely degenerative. There is new abnormal uptake involving the sacrum bilaterally which could be post arthritic. X-ray co rrelation is recommended. Abnormal uptake involving the wrists, hands, knees and feet is compatible with post arthritic change. Slight abnormal uptake involving the maxilla appears to be most likely related to periodontal diseas e. Abnormal uptake involving the shoulders is stable relative to the prior exam of September likely benig n correlate for history of arthritic changes. Faint abnormal uptake involving the left rib cage may b e reflective of chronic fractures. IMPRESSION: 1. Abnormal uptake involving the vertebral column similar to the prior exam and likely degenerative. Abnormal uptake seen L4-5 and L5-S1 appears to correspond to the postsurgical levels. 2. There is faint increased abnormal uptake which is new involving the sacrum bilaterally. However, C T scan performed on same day demonstrates no definite abnormality.
== END | disposition home or self-care (01) ==
LOC: RADCTMAIN 07:15
PROVIDERS: ATTEND Urology
DX: C61 Malignant neoplasm of prostate (principal); K57.30 Diverticulosis of large intestine without perforation or abscess without bleeding
CPT/HCPCS: 82565; 84520; 72193; 78306; A9503; Q9967

== ENCOUNTER → 2021-12-06 | Outpatient (CLI) | payer MEDICARE ==
[2021-12-06 19:37] LABS: ALT 20 U/L (10-49); AST 14 U/L (14-35); African American GFR (CKD) 100.4 (60.0-200.0); Albumin 4.1 g/dL (3.8-4.9); Albumin/Globulin Ratio 1.86 (1.60-3.17); Alkaline Phosphatase 86 U/L (41-126); Blood Urea Nitrogen 15.4 mg/dL (9.0-27.0); Calcium 9.1 mg/dL (8.7-10.3); Carbon Dioxide 25.6 mmol/L (20.0-27.5); Chloride 102 mmol/L (96-109); Chol/HDL Ratio 3.49 Ratio; Globulin 2.2 g/dL (1.6-3.3); Glucose 142 mg/dL (70-110); Non-African American GFR(CKD) 86.7 (60.0-200.0); Potassium 4.8 mmol/L (3.5-5.5); Sodium 138 mmol/L (135-145); Total Protein 6.3 g/dL (6.2-8.2)
== END | disposition home or self-care (01) ==
LOC: LABWHC1 11:57
PROVIDERS: ATTEND Nurse Practitioner Adult Health
DX: I10 Essential (primary) hypertension (principal); E78.2 Mixed hyperlipidemia
CPT/HCPCS: 36415; 80053; 80061

== ENCOUNTER → 2022-04-19 | Outpatient (CLI) | payer MEDICARE ==
--- NOTE | 2022-04-19 12:23 | XR ---
Bilateral hips and AP pelvis HISTORY: Pain, prostate carcinoma Single frontal view the pelvis, 2 views each hip submitted Surgical clips are present in the groins bilaterally, aortic stent graft is noted incidentally. There is arthropathy in the bilateral hips with concentric joint space loss, marginal spurring. Alignment and bone mineralization are maintained. There is no evident fracture or dislocation. Probable phlebol iths are present pelvis. Sacroiliac joints are intact. IMPRESSION: Osteoarthritis.
[2022-04-19 18:36] LABS: Basophils # (A) 0.04 X 10*3/uL (0.00-0.10); Basophils % (A) 0.5 %; Eosinophils # (A) 0.26 X 10*3/uL (0.04-0.35); Eosinophils % (A) 3.4 %; HGB 10.3 g/dL (13.0-17.0); Immature Grans, Automated 0.3 %; Lymphocytes # (A) 0.78 X 10*3/uL (0.90-5.00); Lymphocytes % (A) 10.1 %; MCH 24.9 pg (27.0-32.0); MCHC 30.3 g/dL (32.0-37.0); MCV 82.1 fL (80.0-97.0); Mean Platelet Volume 10.6 fL (9.5-12.2); Monocytes # (A) 0.79 X 10*3/uL (0.20-1.00); Monocytes % (A) 10.2 %; NRBC Per 100 WBC 0 /100 WBCS (0.0-0.0); Neutrophils # (A) 5.84 X 10*3/uL (1.80-7.70); Neutrophils % (A) 75.5 %; Platelet Count 203 X 10*3/uL (140-440); RBC 4.14 X 10*6/uL (4.40-5.60); RDW 13.9 % (11.5-14.5); WBC 7.73 X 10*3/uL (4.50-10.00)
[2022-04-19 18:42] LABS: C Reactive Protein <0.30 mg/dL (0.00-0.80); Creatine Kinase 75 U/L (35-257); Uric Acid 6.9 mg/dL (3.7-8.7)
[2022-04-19 18:47] LABS: Erythrocyte Sedimentation Rate 11 mm/Hr (0-20)
== END | disposition home or self-care (01) ==
LOC: LABWHC1 11:19
PROVIDERS: ATTEND Internal Medicine
DX: C61 Malignant neoplasm of prostate (principal); N40.0 Benign prostatic hyperplasia without lower urinary tract symptoms; R60.9 Edema, unspecified
CPT/HCPCS: 36415; 72170; 73521; 82550; 83735; 83880; 83970; 84100; 84484; 84550; 85025; 85652; 86140

== ENCOUNTER → 2022-04-26 | Outpatient (CLI) | payer MEDICARE ==
[2022-04-26 18:37] LABS: African American GFR (CKD) 90.6 (60.0-200.0); Anion Gap 11.2 mmol/L (10.00-18.00); BUN/Creat Ratio 30.33 Ratio (12.00-20.00); Blood Urea Nitrogen 27.3 mg/dL (9.0-27.0); Calcium 8.7 mg/dL (8.7-10.3); Carbon Dioxide 26.8 mmol/L (20.0-27.5); Non-African American GFR(CKD) 78.2 (60.0-200.0); Potassium 4.5 mmol/L (3.5-5.5)
== END | disposition home or self-care (01) ==
LOC: LABWHC1 12:25
PROVIDERS: ATTEND Internal Medicine
DX: E87.8 Other disorders of electrolyte and fluid balance, not elsewhere classified (principal)
CPT/HCPCS: 36415; 80048

== ENCOUNTER → 2022-06-07 | Outpatient (CLI) | payer MEDICARE ==
[2022-06-07 16:12] LABS: ALT 12 U/L (10-49); AST 15 U/L (14-35); Chol/HDL Ratio 3.33 Ratio; Glucose 129 mg/dL (70-110); LDL Cholesterol,Calculated 56.8 mg/dL (0.0-131.0)
== END | disposition home or self-care (01) ==
LOC: LABWHC1 10:01
PROVIDERS: ATTEND Internal Medicine
DX: E11.65 Type 2 diabetes mellitus with hyperglycemia (principal); E78.2 Mixed hyperlipidemia
CPT/HCPCS: 36415; 80061; 82947; 83036; 84450; 84460

== ENCOUNTER 2022-06-30 20:30 | Emergency (ER) | payer MEDICARE ==
[2022-06-30 20:39] VITALS: BP 167/81; PULSE 61; RESP 18; TEMP 97.4
[2022-06-30] MEDS ORDERED: ONDANSETRON 4 MG/2 ML VIAL IVP STA (21:59)
[2022-06-30] MEDS ORDERED: MORPHINE SULFATE 4 MG/ML SYRINGE IV STA (21:59)
--- NOTE | 2022-06-30 22:29 | ED ---
Fall HPI - General Chief Complaint: Fall Stated Complaint: Fall, head and right rib injury Time Seen by Provider: 06/30/22 21:49 Source: patient Mode of arrival: ambulatory - History of Present Illness Initial Comments: This 86-year-old male presents with a complaint of a fall. He apparently lost his balance and fell on some steps. He states that this could shortly prior to arrival. He had his right head. He is unsure if he lost consciousness but thinks he might have briefly. He has some slight pain to his right temporal region. He states that he vomited 7 times prior to arrival. He also is complaining of pain to his right lateral ribs. He denies any other areas of injury. The rib pain is worse with any movement or deep inspiration. He states that he also fell earlier when he was pulling a weed and at like to go but he did not have any injuries at that time. He is on aspirin but no other blood thinners. He denies any back or extremity injuries or trauma. No other complaints or modifying factors. - Related Data Home Medications Medication Instructions Recorded Confirmed Aspirin EC [Ecotrin Low Dose] 81 mg PO DAILY 05/29/18 05/22/19 Enalapril [Vasotec] 2.5 mg PO DAILY 05/29/18 05/22/19 Gabapentin [Neurontin] 300 mg PO TID 05/29/18 05/22/19 Simvastatin 40 mg PO HS 05/29/18 05/22/19 Vit A/Vit C/Vit E/Zinc/Copper 1 cap PO BID 05/29/18 05/22/19 [ICAPS SOFTGEL] glipiZIDE XL [Glucotrol XL] 5 mg PO DAILY 05/29/18 05/22/19 Metoprolol Tartrate [Lopressor] 25 mg PO BID 12/19/18 05/22/19 Terazosin HCl 2 mg PO DAILY 12/19/18 05/22/19 metFORMIN HCL [Glucophage] 500 mg PO BID 12/19/18 05/22/19 Vit C/E/Zn/Coppr/Lutein/Zeaxan 1 cap PO BID 05/22/19 05/22/19 [Preservision Areds 2 Softgel] Previous Rx's Medication Instructions Recorded Cephalexin [Keflex] 500 mg PO Q12HR 10 Days cap 05/22/19 Ondansetron [Zofran] 4 mg PO Q8HR PRN #12 tab 06/30/22 traMADol HCl [Ultram] 50 - 100 mg PO Q6H PRN #15 tab 06/30/22 Allergies Allergy/AdvReac Type Severity Reaction Status Date / Time No Known Allergies Allergy Verified 06/30/22 20:39 Review of Systems ROS Statement: Those systems with pertinent positive or pertinent negative responses have been documented in the HPI. ROS Other: All systems not noted in ROS Statement are negative. Past Medical History Past Medical History: Coronary Artery Disease (CAD), Cancer, Diabetes Mellitus, Hyperlipidemia, Hypertension Additional Past Medical History / Comment(s): Patient states he has prostate cancer, has chosen no treatment History of Any Multi-Drug Resistant Organisms: None Reported Past Surgical History: Heart Catheterization With Stent Additional Past Surgical History / Comment(s): Back surgery years ago, neck surgery appox 2010; patient had heart catheterization with stent, states approximately 1992; recalls he had stents in groin in 2002, 2004, 2006 Past Anesthesia/Blood Transfusion Reactions: No Reported Reaction Additional Past Anesthesia/Blood Transfusion Reaction / Comment(s): Patient aspirated post-surgically Past Psychological History: No Psychological Hx Reported Smoking Status: Never smoker Past Alcohol Use History: None Reported Past Drug Use History: None Reported - Past Family History Father Family Medical History: Cancer Mother Family Medical History: Diabetes Mellitus General Exam - General Exam Comments Initial Comments: GENERAL: The patient is well nourished and well hydrated. VITAL SIGNS: Heart rate, blood pressure, respiratory rate reviewed as recorded in nurse's notes. EYES: Pupils are round and reactive. Extraocular movements are intact. No conjunctival / lid redness or swelling. ENT: No external evidence of injury, swelling, or ecchymosis. Airway is patent. Throat is clear. There is minimal tenderness noted to the right temporal region but no swelling identified. NECK: Nontender. No swelling or evidence of injury. No subcutaneous emphysema. Trachea is midline. No thyroid mass. HEART: Regular rate and rhythm. Good peripheral pulses. LUNGS/CHEST: Breath sounds clear and equal bilaterally. No rales, rhonchi, or wheezes. Tenderness noted to the right chest on the mid to lateral aspect. No ecchymosis or subcutaneous emphysema. ABDOMEN: Abdomen soft without tenderness. No palpable masses or organomegaly. No peritoneal signs. No abdominal wall swelling or ecchymosis. EXTREMITIES: No extremity tenderness. Normal muscle tone and function. No thoracolumbar tenderness. NEUROLOGIC: Sensation is grossly intact. Cranial nerve exam reveals face is symmetrical, tongue is midline, speech is clear. SKIN: No abrasions or ecchymosis is noted. No induration or masses noted. PSYCHIATRIC: Alert and oriented. Appropriate behavior and judgment. Limitations: no limitations Course Vital Signs 06/30/22 20:34 Temperature 97.4 F L Pulse Rate 61 Respiratory 18 Rate Blood Pressure 167/81 O2 Sat by Pulse 97 Oximetry Medical Decision Making - Medical Decision Making The patient was seen and examined. An IV is established and he receives 4 morphine and 4 of Zofran. Computed tomography scan of the brain is ordered. There is no neck tenderness noted whatsoever and is not felt as though imaging to this area as required. X-ray of the right ribs and chest is also ordered. The laboratory did show mild anemia and mild hyponatremia. The x-ray of the right ribs shows fractures of ribs 6 through 8 but there is no evidence of pneumothorax. The computed tomography scan of the brain does not show any acute processes. He is feeling markedly improved on recheck. He is counseled regarding his injuries in detail. He does have a history of recurrent falls. Elle rios has peripheral neuropathy. He utilizes a walker. He is counseled extensively regarding falls. It is felt as though he may benefit from pain medications on an outpatient basis. Return parameters are discussed. Close follow-up with primary care recommended. - Lab Data Result diagrams: 06/30/22 22:15 06/30/22 22:15 Lab Results 06/30/22 06/30/22 06/30/22 Range/Units 22:15 22:15 22:15 WBC 8.4 (3.8-10.6) k/uL RBC 4.23 L (4.30-5.90) m/uL Hgb 11.0 L (13.0-17.5) gm/dL Hct 34.4 L (39.0-53.0) % MCV 81.3 (80.0-100.0) fL MCH 25.9 (25.0-35.0) pg MCHC 31.9 (31.0-37.0) g/dL RDW 14.8 (11.5-15.5) % Plt Count 160 (150-450) k/uL MPV 8.6 Neutrophils % 81 % Lymphocytes % 8 % Monocytes % 7 % Eosinophils % 3 % Basophils % 0 % Neutrophils # 6.8 (1.3-7.7) k/uL Lymphocytes # 0.7 L (1.0-4.8) k/uL Monocytes # 0.6 (0-1.0) k/uL Eosinophils # 0.3 (0-0.7) k/uL Basophils # 0.0 (0-0.2) k/uL Hypochromasia Slight PT 11.3 (9.0-12.0) sec INR 1.0 (<1.2) APTT 24.6 (22.0-30.0) sec Sodium 132 L (137-145) mmol/L Potassium 4.8 (3.5-5.1) mmol/L Chloride 98 (98-107) mmol/L Carbon Dioxide 24 (22-30) mmol/L Anion Gap 10 mmol/L BUN 14 (9-20) mg/dL Creatinine 0.64 L (0.66-1.25) mg/dL Est GFR (CKD-EPI)AfAm >90 (>60 ml/min/1.73 sqM) Est GFR (CKD-EPI)NonAf 90 (>60 ml/min/1.73 sqM) Glucose 103 H (74-99) mg/dL Calcium 8.9 (8.4-10.2) mg/dL Total Bilirubin 1.1 (0.2-1.3) mg/dL AST 51 (17-59) U/L ALT 34 (4-49) U/L Alkaline Phosphatase 103 (38-126) U/L Total Protein 6.5 (6.3-8.2) g/dL Albumin 3.9 (3.5-5.0) g/dL Disposition Clinical Impression: Fall, Head injury, Nausea and vomiting, Rib fractures Disposition: HOME SELF-CARE Condition: Good Instructions (If sedation given, give patient instructions): Fall Prevention for Older Adults (ED), Rib Fracture (ED), Head Injury (ED) Additional Instructions: He also may take Tylenol if needed for additional pain. Prescriptions: traMADol HCl [Ultram] 50 - 100 mg PO Q6H PRN #15 tab PRN Reason: Pain Ondansetron [Zofran] 4 mg PO Q8HR PRN #12 tab PRN Reason: Nausea Is patient prescribed a controlled substance at d/c from ED?: Yes When asked, does pt state using other controlled substances?: No If prescribed controlled substance>3 days was MAPS reviewed?: Prescribed <3 Days Referrals: Marcelino Hernandez MD [Primary Care Provider] - 1-2 days Time of Disposition: 23:36
[2022-06-30 22:39] LABS: Basophils % (A) 0 %; Eosinophils # (A) 0.3 k/uL (0-0.7); Eosinophils % (A) 3 %; HCT 34.4 % (39.0-53.0); Hypochromasia Slight; Lymphocytes # (A) 0.7 k/uL (1.0-4.8); Lymphocytes % (A) 8 %; MCH 25.9 pg (25.0-35.0); MCHC 31.9 g/dL (31.0-37.0); MCV 81.3 fL (80.0-100.0); Mean Platelet Volume 8.6; Monocytes # (A) 0.6 k/uL (0-1.0); Monocytes % (A) 7 %; Neutrophils # (A) 6.8 k/uL (1.3-7.7); Neutrophils % (A) 81 %; Platelet Count 160 k/uL (150-450); RBC 4.23 m/uL (4.30-5.90); RDW 14.8 % (11.5-15.5); WBC 8.4 k/uL (3.8-10.6)
[2022-06-30 22:46] LABS: Partial Thromboplastin Time 24.6 sec (22.0-30.0); Prothrombin Time 11.3 sec (9.0-12.0)
[2022-06-30 22:47] LABS: ALT 34 U/L (4-49); AST 51 U/L (17-59); African American GFR (CKD) >90 (>60 ml/min/1.73 sqM); Albumin 3.9 g/dL (3.5-5.0); Alkaline Phosphatase 103 U/L (38-126); Anion Gap 10 mmol/L; Blood Urea Nitrogen 14 mg/dL (9-20); Calcium 8.9 mg/dL (8.4-10.2); Carbon Dioxide 24 mmol/L (22-30); Chloride 98 mmol/L (98-107); Glucose 103 mg/dL (74-99); Non-African American GFR(CKD) 90 (>60 ml/min/1.73 sqM); Potassium 4.8 mmol/L (3.5-5.1); Sodium 132 mmol/L (137-145); Total Bilirubin 1.1 mg/dL (0.2-1.3); Total Protein 6.5 g/dL (6.3-8.2)
--- NOTE | 2022-06-30 22:51 | XR ---
EXAMINATION TYPE: XR ribs RT w pa chest xray DATE OF EXAM: 06/30/2022 COMPARISON: 01/15/2019 HISTORY: Fall. Right rib pain TECHNIQUE: 5 views FINDINGS: There is no heart failure nor confluent pneumonic infiltrate. Thoracic aorta is atheromatou s. There is severe subacromial joint space narrowing at the shoulder joints. No pneumothorax. There a re fractures of the posterior right sixth and seventh and eighth ribs. It is not clear if these fract ures are acute. The seventh rib fracture appears old. IMPRESSION: Multiple right rib fractures. It is not clear if these fractures are acute. No pneumothor ax. No pulmonary consolidation or heart failure.
--- NOTE | 2022-06-30 23:14 | CT ---
EXAMINATION TYPE: CT brain wo con DATE OF EXAM: 06/30/2022 COMPARISON: 12/20/2018 HISTORY: fall, head injury CT DLP: 1150.9 mGycm Automated exposure control for dose reduction was used. Images of the brain obtained with no contrast. There is cerebral cortical atrophy. There is no mass effect or midline shift. No sign of intracranial hemorrhage. The calvarium is intact. The skull base is intact. No evidence of cerebral edema. IMPRESSION: Cerebral atrophy. No acute intracranial abnormality. No change from old exam
== END 2022-07-01 00:16 | disposition home or self-care (01) ==
LOC: EC 20:30
DX: S09.90XA Unspecified injury of head, initial encounter (principal); S22.41XA Multiple fractures of ribs, right side, initial encounter for closed fracture; R11.2 Nausea with vomiting, unspecified; I25.10 Atherosclerotic heart disease of native coronary artery without angina pectoris; E11.9 Type 2 diabetes mellitus without complications; E78.5 Hyperlipidemia, unspecified; I10 Essential (primary) hypertension; Z79.82 Long term (current) use of aspirin; Z79.84 Long term (current) use of oral hypoglycemic drugs; Z79.4 Long term (current) use of insulin; Z79.899 Other long term (current) drug therapy; W10.9XXA Fall (on) (from) unspecified stairs and steps, initial encounter
CPT/HCPCS: 36415; 80053; 85025; 85610; 85730; 71101; 70450; 99284; 96374; 96375; J2270; J2405

== ENCOUNTER 2022-09-02 15:10 | Inpatient (IN) | payer MEDICARE ==
[2022-09-02] MEDS ORDERED: SODIUM CHLORIDE 0.9% 1,000 ML IV STA ×2 (15:14→15:51)
[2022-09-02] MEDS ORDERED: ETOMIDATE 2 MG/ML 10 ML VIAL IVP STA (15:16)
[2022-09-02] MEDS ORDERED: ROCURONIUM 10 MG/ML (5 ML VIAL) IV STA (15:16)
--- NOTE | 2022-09-02 15:21 | ED ---
General Adult HPI - General Stated complaint: Stroke Time Seen by Provider: 09/02/22 15:14 - History of Present Illness Initial comments: Dictation was produced using [employer] dictation software. please excuse any grammatical, word or spelling errors. Chief Complaint: 87-year-old male presents emergency Department after being found unresponsive History of Present Illness: 87-year-old male is brought in by EMS. Patient was last seen normal some time yesterday. Patient allegedly was recently diagnosed with urinary tract infection. His discovered to be unresponsive at home. EMS was called patient is brought to the ER. EMS reports that patient's blood sugar was 96, he was not responsive. Normal equal pupils and stable vital signs. So clear with patient's medical history is however there is suspicion that he does have some cardiac history. Chart review shows that patient was admitted to the hospital in 2019. History and physical from that day shows that patient has history of coronary artery disease, diabetes, hypertensive cardiovascular disease and prostate cancer dyslipidemia. Patient was last seen here in emerge ncy department in June of this year after a fall. He was sent home after being evaluated found to not have any dramatic injuries. Unable to obtain ROS secondary to mental status PHYSICAL EXAM: General Impression: Unresponsive, sonorous respirations HEENT: Normocephalic atraumatic, extra-ocular movements intact, pupils equal and reactive to light bilaterally, dry mucous membranes, blood-tinged's have a dried around the perioral Cardiovascular: Mildly tachycardic Chest: Bilateral breath sounds Abdomen: abdomen soft, non-tender, non-distended, no organomegaly Musculoskeletal: Pulses present and equal in all extremities, no peripheral edema Motor: Rigid to the extremities, decerebrate posturing, fasciculations to the bilateral thigh muscles Neurological: Pupils equal and reactive to light, unresponsive, feels painful stimuli to the bilateral lower extremities when pressure is applied to the nailbed Skin: Intact with no visualized rashes ED course: 87-year-old male presents to the emergency department after being found unresponsive. Code stroke was paged prior to patient's arrival in the emergency department. Patient seen and evaluated at bedside. His unresponsive there is concern for severe intracranial pathology. More history was obtained from and daughter at the bedside. They report that patient was getting weaker and weaker and having difficulties performing his activities of daily living for the last 2-3 days. He did appear to be somewhat stable last night according to . His morning he was found unresponsive. Risk and benefits were discussed with family regarding intubation. They were agreeable. Patient was intubated using RSI technique. Intubation was successful. No abnormalities noted in the pharynx. Computed tomography scan of the head and neck shows severe motion artifact but no obvious acute intracranial abnormality. There does appear to be degenerative changes throughout the cervical spine. There is obese some wall thickening at the esophageal junction., Incidental trace pleural effusions and background COPD. Patient not a candidate for TPA at this time even that last known well was last night. Furthermore patient is 87 years of age. At this point risk outweigh the benefits. Case is discussed with code stroke neurologist reviewed the films. Patient I candidate for out to place or thrombectomy Laboratory evaluation obtained. CBC is unremarkable. Stable hemoglobin, no leukocytosis. Platelet's 147. Coag panel is unremarkable. Care blood gas appears to be within reasonable limits. He is not hypoxic at showing any severe acidosis. Metabolic panel shows sodium 1:30, there is a mild gap acidosis, a cute kidney injury. Lactic acid level is normal. Cardiac enzymes are negative. Post intubation x-ray shows adequate intubation. NG tube needs to be adjusted. No other findings seen on the lungs. At this point patient given rectal aspirin. Is unclear what is causing his lethargy and unresponsiveness. However he does appear to be stable on the ventilator. Case discussed with Dr. Hernandez and Dr. Charles crespo willing to take over patient's care. EKG interpretation: Ventricular rate 85, sinus rhythm,. 161, right bundle branch block, QRS 132, QTc 448. No SC prolongation, no QTC prolongation, no ST or T-wave changes noted. No old EKG for comparison. Overall, this EKG is unremarkable - Related Data Home Medications Medication Instructions Recorded Confirmed Gabapentin [Neurontin] 300 mg PO TID 05/29/18 09/02/22 Simvastatin 40 mg PO HS 05/29/18 09/02/22 glipiZIDE XL [Glucotrol XL] 5 mg PO DAILY 05/29/18 09/02/22 Metoprolol Tartrate [Lopressor] 25 mg PO BID 12/19/18 09/02/22 Terazosin HCl 2 mg PO DAILY 12/19/18 09/02/22 metFORMIN HCL [Glucophage] 500 mg PO BID 12/19/18 09/02/22 Escitalopram Oxalate [Lexapro] 10 mg PO DAILY 09/02/22 09/02/22 Sulfamethoxazole/Trimethoprim 1 tab PO BID 09/02/22 09/02/22 [Bactrim DS 800-160 mg] Allergies Allergy/AdvReac Type Severity Reaction Status Date / Time No Known Allergies Allergy Verified 09/02/22 15:26 Review of Systems ROS Statement: Those systems with pertinent positive or pertinent negative responses have been documented in the HPI. ROS Other: All systems not noted in ROS Statement are negative. Past Medical History Past Medical History: Coronary Artery Disease (CAD), Cancer, Diabetes Mellitus, Hyperlipidemia, Hypertension Additional Past Medical History / Comment(s): Patient states he has prostate c ancer, has chosen no treatment History of Any Multi-Drug Resistant Organisms: None Reported Past Surgical History: Heart Catheterization With Stent Additional Past Surgical History / Comment(s): Back surgery years ago, neck s urgery appox 2010; patient had heart catheterization with stent, states approximately 1992; recalls he had stents in groin in 2002, 2004, 2006 Past Anesthesia/Blood Transfusion Reactions: No Reported Reaction Additional Past Anesthesia/Blood Transfusion Reaction / Comment(s): Patient aspirated post-surgically Past Psychological History: No Psychological Hx Reported Smoking Status: Never smoker Past Alcohol Use History: None Reported Past Drug Use History: None Reported - Past Family History Father Family Medical History: Cancer Mother Family Medical History: Diabetes Mellitus Course Vital Signs 09/02/22 09/02/22 09/02/22 15:40 15:50 16:00 Pulse Rate 96 96 92 Respiratory 14 16 16 Rate Blood Pressure 145/72 126/63 131/66 O2 Sat by Pulse 98 99 98 Oximetry Fraction of Inspired Oxygen (FIO2) 09/02/22 09/02/22 09/02/22 16:01 16:10 16:20 Pulse Rate 92 87 Respiratory 16 16 Rate Blood Pressure 134/70 144/76 O2 Sat by Pulse 98 98 Oximetry Fraction of 100 Inspired Oxygen (FIO2) 09/02/22 09/02/22 09/02/22 16:30 16:40 16:50 Pulse Rate 84 82 80 Respiratory 16 16 16 Rate Blood Pressure 140/73 138/74 136/73 O2 Sat by Pulse 98 98 98 Oximetry Fraction of Inspired Oxygen (FIO2) 09/02/22 16:59 Pulse Rate Respiratory Rate Blood Pressure O2 Sat by Pulse Oximetry Fraction of 50 Inspired Oxygen (FIO2) Procedures - Intubation Sedative: Etomidate (20) Paralytic: Rocuronium (70) Laryngoscope: fiber optic video scope Size: 3 Assist Device Used: fiber optic device ET Tube Size: 7.5 ET Tube Uncuffed: No Tube Secured Location: lips (23.5) Patient Tolerated Procedure: well Intubation Complications: none Medical Decision Making - Lab Data Result diagrams: 09/02/22 15:24 09/02/22 15:24 Lab Results 09/02/22 09/02/22 09/02/22 Range/Units 15:24 15:24 15:24 WBC 6.3 (3.8-10.6) k/uL RBC 3.81 L (4.30-5.90) m/uL Hgb 10.0 L (13.0-17.5) gm/dL Hct 31.0 L (39.0-53.0) % MCV 81.2 (80.0-100.0) fL MCH 26.3 (25.0-35.0) pg MCHC 32.4 (31.0-37.0) g/dL RDW 14.8 (11.5-15.5) % Plt Count 147 L (150-450) k/uL MPV 9.6 Neutrophils % 72 % Lymphocytes % 11 % Monocytes % 10 % Eosinophils % 4 % Basophils % 0 % Neutrophils # 4.6 (1.3-7.7) k/uL Lymphocytes # 0.7 L (1.0-4.8) k/uL Monocytes # 0.7 (0-1.0) k/uL Eosinophils # 0.3 (0-0.7) k/uL Basophils # 0.0 (0-0.2) k/uL Hypochromasia Moderate PT 10.8 (9.0-12.0) sec INR 1.0 (<1.2) APTT 24.0 (22.0-30.0) sec Sample Site ABG pH (7.35-7.45) ABG pCO2 (35-45) mmHg ABG pO2 (83-108) mmHg ABG HCO3 (21-25) mmol/L ABG Total CO2 (19-24) mmol/L ABG O2 Saturation (94-97) % ABG Base Excess mmol/L Rod Test FiO2 % Sodium 130 L (137-145) mmol/L Potassium 4.7 (3.5-5.1) mmol/L Chloride 97 L (98-107) mmol/L Carbon Dioxide 17 L (22-30) mmol/L Anion Gap 16 mmol/L BUN 25 H (9-20) mg/dL Creatinine 2.43 H (0.66-1.25) mg/dL Est GFR (CKD-EPI)AfAm 27 (>60 ml/min/1.73 sqM) Est GFR (CKD-EPI)NonAf 23 (>60 ml/min/1.73 sqM) Glucose 170 H (74-99) mg/dL Plasma Lactic Acid Chris (0.7-2.0) mmol/L Calcium 8.4 (8.4-10.2) mg/dL Magnesium (1.6-2.3) mg/dL Total Bilirubin 0.6 (0.2-1.3) mg/dL AST 18 (17-59) U/L ALT 14 (4-49) U/L Alkaline Phosphatase 99 (38-126) U/L Troponin I (0.000-0.034) ng/mL Total Protein 5.5 L (6.3-8.2) g/dL Albumin 3.3 L (3.5-5.0) g/dL 09/02/22 09/02/22 09/02/22 Range/Units 15:24 16:32 16:34 WBC (3.8-10.6) k/uL RBC (4.30-5.90) m/uL Hgb (13.0-17.5) gm/dL Hct (39.0-53.0) % MCV (80.0-100.0) fL MCH (25.0-35.0) pg MCHC (31.0-37.0) g/dL RDW (11.5-15.5) % Plt Count (150-450) k/uL MPV Neutrophils % % Lymphocytes % % Monocytes % % Eosinophils % % Basophils % % Neutrophils # (1.3-7.7) k/uL Lymphocytes # (1.0-4.8) k/uL Monocytes # (0-1.0) k/uL Eosinophils # (0-0.7) k/uL Basophils # (0-0.2) k/uL Hypochromasia PT (9.0-12.0) sec INR (<1.2) APTT (22.0-30.0) sec Sample Site rrad ABG pH 7.30 L (7.35-7.45) ABG pCO2 49 H (35-45) mmHg ABG pO2 279 H (83-108) mmHg ABG HCO3 25 (21-25) mmol/L ABG Total CO2 26 H (19-24) mmol/L ABG O2 Saturation 99.0 H (94-97) % ABG Base Excess -1.9 mmol/L Rod Test Yes FiO2 100 % Sodium (137-145) mmol/L Potassium (3.5-5.1) mmol/L Chloride (98-107) mmol/L Carbon Dioxide (22-30) mmol/L Anion Gap mmol/L BUN (9-20) mg/dL Creatinine (0.66-1.25) mg/dL Est GFR (CKD-EPI)AfAm (>60 ml/min/1.73 sqM) Est GFR (CKD-EPI)NonAf (>60 ml/min/1.73 sqM) Glucose (74-99) mg/dL Plasma Lactic Acid Chris 1.5 (0.7-2.0) mmol/L Calcium (8.4-10.2) mg/dL Magnesium (1.6-2.3) mg/dL Total Bilirubin (0.2-1.3) mg/dL AST (17-59) U/L ALT (4-49) U/L Alkaline Phosphatase (38-126) U/L Troponin I <0.012 (0.000-0.034) ng/mL Total Protein (6.3-8.2) g/dL Albumin (3.5-5.0) g/dL 09/02/22 Range/Units 16:34 WBC (3.8-10.6) k/uL RBC (4.30-5.90) m/uL Hgb (13.0-17.5) gm/dL Hct (39.0-53.0) % MCV (80.0-100.0) fL MCH (25.0-35.0) pg MCHC (31.0-37.0) g/dL RDW (11.5-15.5) % Plt Count (150-450) k/uL MPV Neutrophils % % Lymphocytes % % Monocytes % % Eosinophils % % Basophils % % Neutrophils # (1.3-7.7) k/uL Lymphocytes # (1.0-4.8) k/uL Monocytes # (0-1.0) k/uL Eosinophils # (0-0.7) k/uL Basophils # (0-0.2) k/uL Hypochromasia PT (9.0-12.0) sec INR (<1.2) APTT (22.0-30.0) sec Sample Site ABG pH (7.35-7.45) ABG pCO2 (35-45) mmHg ABG pO2 (83-108) mmHg ABG HCO3 (21-25) mmol/L ABG Total CO2 (19-24) mmol/L ABG O2 Saturation (94-97) % ABG Base Excess mmol/L Rod Test FiO2 % Sodium (137-145) mmol/L Potassium (3.5-5.1) mmol/L Chloride (98-107) mmol/L Carbon Dioxide (22-30) mmol/L Anion Gap mmol/L BUN (9-20) mg/dL Creatinine (0.66-1.25) mg/dL Est GFR (CKD-EPI)AfAm (>60 ml/min/1.73 sqM) Est GFR (CKD-EPI)NonAf (>60 ml/min/1.73 sqM) Glucose (74-99) mg/dL Plasma Lactic Acid Chris (0.7-2.0) mmol/L Calcium (8.4-10.2) mg/dL Magnesium 1.9 (1.6-2.3) mg/dL Total Bilirubin (0.2-1.3) mg/dL AST (17-59) U/L ALT (4-49) U/L Alkaline Phosphatase (38-126) U/L Troponin I (0.000-0.034) ng/mL Total Protein (6.3-8.2) g/dL Albumin (3.5-5.0) g/dL Critical Care Time Critical Care Time: Yes Total Critical Care Time: 73 Disposition Clinical Impression: Respiratory failure, TARUN (acute kidney injury) Disposition: ADMITTED IP TO THIS [facility] Condition: Critical Referrals: Marcelino Hernandez MD [Primary Care Provider] - 1-2 days Decision Time: 17:14
[2022-09-02 15:39] LABS: Basophils % (A) 0 %; Eosinophils # (A) 0.3 k/uL (0-0.7); Eosinophils % (A) 4 %; Hypochromasia Moderate; Lymphocytes # (A) 0.7 k/uL (1.0-4.8); Lymphocytes % (A) 11 %; MCH 26.3 pg (25.0-35.0); MCHC 32.4 g/dL (31.0-37.0); MCV 81.2 fL (80.0-100.0); Mean Platelet Volume 9.6; Monocytes # (A) 0.7 k/uL (0-1.0); Monocytes % (A) 10 %; Neutrophils # (A) 4.6 k/uL (1.3-7.7); Neutrophils % (A) 72 %; Platelet Count 147 k/uL (150-450); RBC 3.81 m/uL (4.30-5.90); RDW 14.8 % (11.5-15.5); WBC 6.3 k/uL (3.8-10.6)
[2022-09-02 15:48] LABS: Albumin 3.3 g/dL (3.5-5.0); Calcium 8.4 mg/dL (8.4-10.2); Potassium 4.7 mmol/L (3.5-5.1); Total Bilirubin 0.6 mg/dL (0.2-1.3); Total Protein 5.5 g/dL (6.3-8.2)
--- NOTE | 2022-09-02 15:52 | CT ---
EXAMINATION TYPE: CT brain cspine wo con DATE OF EXAM: 09/02/2022 COMPARISON: Brain 06/30/2022 HISTORY: 87-year-old male fall, unresponsive CT DLP: 1696.4 mGycm Automated exposure control for dose reduction was used. Technique: Examination of the head was done in axial plane without intravenous contrast. Coronal and sagittal reconstructions performed. CT of the cervical spine was obtained in axial plane without intravenous injection of contrast mater ial. Coronal and sagittal reformatted images were obtained from the axial views for evaluation of f ractures, spinal alignment and canal. FINDINGS: Head: Motion artifact limiting the exam. Allowing for this limitation, there is no evidence of acute intra cranial hemorrhage, acute ischemic changes, mass, mass-effect, or extra-axial fluid collection. Ther e is no effacement of cerebral sulci or basal subarachnoid cisterns. There is no hydrocephalus. The re is no midline shift. [place]-white matter distinction is preserved. Moderate patchy white matter hypodensities both cerebral hemispheres. Mild to moderate mucosal thickening ethmoid air cells. Mastoid air cells well pneumatized. Orbits and globes are intact. Cervical spine: No craniocervical junction abnormality, predental space widening, or prevertebral soft tissue swellin g. Severe degenerative change C1 dens articulation with associated chronic bony remodeling and erosio n. Post surgical change C3-C5 levels with mature bony ankylosis. Scattered moderate spondylotic change r elated to hyperostotic change and disc osteophyte complex. This results in mild narrowing of the spin al canal at C2-C3 and likely at the nonfused levels of the lower cervical spine. No acute fracture of the cervical spine. Degenerative grade 1 anterolisthesis C7-T1. Very minimal moderate neural foraminal stenosis throughout the cervical spine. 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 Trace pleur al effusions on both sides. Background moderate emphysema. Marked distention of the esophagus with possible circumferential wall thickening. The alignment of the cervical spine is normal on coronal and reformatted images. There is no cranial vertebral abnormality. Fracture of the cervical spine is not seen. . There is no evidence of focal di sk herniation. There is no central spinal canal stenosis. Sagittal and coronal reformatted images confirm above findings. COMBINED IMPRESSION: 1. Moderate burden chronic small vessel ischemic disease. No acute intracranial abnormality seen. 2. Moderate multilevel spondylotic change cervical spine. Advanced degenerative change C1 dens articu lation. Previous C3-C5 ACDF. Degenerative grade 1 anterolisthesis C7-T1. No acute fracture seen of th e cervical spine. 3. Marked distention of the esophagus with possible circumferential wall thickening. We note a simila r finding in the patient's 12/19/2018 CT where there appears to have been some abnormality at the Tykli j unction. Correlate clinically for any potential distal esophageal obstruction. 4. Incidental trace pleural effusions. Background COPD.
[2022-09-02 15:54] LABS: Prothrombin Time 10.8 sec (9.0-12.0)
--- NOTE | 2022-09-02 16:19 | CT ---
EXAMINATION TYPE: CT angio head neck DATE OF EXAM: 09/02/2022 COMPARISON: Brain same day HISTORY: 87-year-old male with neurologic deficit, stroke suspected, fall, Unresponsive TECHNIQUE: Contiguous axial scanning of the head and neck performed with IV Contrast, patient injecte d with 65 mL of Isovue 370. Coronal/sagittal MIP reconstructions performed. CT DLP: 420.6 mGycm Automated exposure control for dose reduction was used. 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 Gross abnormality of the visualized mid thoracic esophagus with abnormal wall thickening. Further evaluation advised with patient able. Large main ri ght and left pulmonary arteries up to 2.8 cm compatible with pulmonary arterial hypertension. There a re small pleural effusions. Background COPD. Scattered mild to moderate atherosclerotic calcifications throughout the aorta. Direct takeoff of the left vertebral artery directly from the aortic arch distal to the left subclavi an artery. Suspect a moderate stenosis at its origin. On the right, there appears to be a severe sten osis at the origin of the right vertebral artery. Otherwise, both vertebral arteries appear to be pat ent throughout its course. Mild atherosclerotic calcification at the right carotid bifurcation. No significant stenosis of eithe r right common or internal carotid arteries by NASCET criteria. Left common and internal carotid arteries are widely patent. Tortuous upper left ICA. HEAD: The V4 segment right vertebral artery becomes slightly hypoplastic after the takeoff of the right PIC A. Both vertebral arteries, basilar artery, and remainder of the posterior circulation are patent. The internal carotid arteries are patent. Mild atherosclerotic calcifications within the carotid siph ons. 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 Remainder of the anterior ci rculation is patent. IMPRESSION: HEAD: 1. NO LARGE VESSEL INTRACRANIAL ARTERIAL OCCLUSION, SIGNIFICANT STENOSIS, OR ANEURYSMAL CHANGE IS SEE N. NECK: 2. DIRECT TAKEOFF LEFT VERTEBRAL ARTERY FROM THE AORTIC ARCH DISTAL TO THE LEFT SUBCLAVIAN ARTERY. GRAYSON SPECT MODERATE STENOSIS AT ITS ORIGIN. ON THE RIGHT, THERE APPEARS TO BE A SEVERE STENOSIS AT THE CHING GIN OF THE RIGHT VERTEBRAL ARTERY. 3. TORTUOUS UPPER LEFT ICA. THE COMMON AND INTERNAL CAROTID ARTERIES SHOW NO HEMODYNAMICALLY SIGNIFIC ANT STENOSIS. 4. MARKED SOFT TISSUE THICKENING OF THE MID ESOPHAGUS AND DILATATION OF THE PROXIMAL ESOPHAGUS. APPRO PRIATE FURTHER EVALUATION RECOMMENDED, FOR EXAMPLE, TO EXCLUDE UNDERLYING NEOPLASM OR OTHER ABNORMALI TY. 5. SMALL EFFUSIONS. PULMONARY ARTERIAL HYPERTENSION.
--- NOTE | 2022-09-02 16:27 | XR ---
EXAMINATION TYPE: XR chest 1V DATE OF EXAM: 09/02/2022 COMPARISON: Chest x-ray dated 06/30/2022 HISTORY: Intubated, altered mental status TECHNIQUE: Single frontal view of the chest is obtained. FINDINGS: There is been interval placement of an endotracheal tube and NG tube overlying appropriate positions, side port of the NG tube is likely near the level of the gastroesophageal junction howeve r. Patient is rotated. No evident pneumothorax or pleural effusion. Cardiac and mediastinal silhouett e is similar accounting for differences in technique. The aorta is dense. There is some strand-like d ensities within the lungs. Right shoulder is high riding possibly due to chronic rotator cuff tear. W edge-shaped density superimposed over the heart which is indeterminate. IMPRESSION: Interval intubation. NG tube side port as described. Follow-up suggested due to rotation, abnormal findings may be related to technique.
[2022-09-02 16:52] LABS: ABG Base Excess -1.9 mmol/L; ABG HCO3 25 mmol/L (21-25); ABG PCO2 49 mmHg (35-45); ABG PO2 279 mmHg (83-108); ABG TCO2 26 mmol/L (19-24); Allen Test Performed? Yes
[2022-09-02] MEDS ORDERED: NALOXONE 0.4 MG/ML 1 ML VIAL IV PRN (17:10)
[2022-09-02 17:41] LABS: Appearance,Urine Clear (Clear); Bilirubin,Urine Negative (Negative); Blood,Urine Negative (Negative); Color,Urine Yellow; Glucose,Urine (UA) Negative (Negative); Hyaline Casts,Urine 1 /lpf (0-2); Ketones,Urine Negative (Negative); Leukocyte Esterase,Urine Small (Negative); Mucus,Urine Rare /hpf; Nitrite,Urine Negative (Negative); PH, Urine 5.5 (5.0-8.0); Protein,Urine Negative (Negative); RBC,Urine 2 /hpf (0-5); Specific Gravity,Urine 1.013 (1.001-1.035); Urobilinogen,Urine <2.0 mg/dL (<2.0); WBC,Urine 6 /hpf (0-5)
[2022-09-02 17:45] LABS: Amphetamine Screen,Urine Not Detected (NotDetected); Barbiturate Screen,Urine Not Detected (NotDetected); Benzodiazepines Screen,Urine Detected (NotDetected); Cocaine Screen,Urine Not Detected (NotDetected); Methadone Screen, Urine Not Detected (NotDetected); Opiate Screen,Urine Not Detected (NotDetected); Oxycodone Screen, Urine Not Detected (NotDetected); Phencyclidine Screen,Urine Not Detected (NotDetected); Tricyclic Antidepressant,Urine Not Detected (NotDetected); Urn Cannabinoid Scrn Not Detected (NotDetected)
[2022-09-02] MEDS ORDERED: DEXTROSE 50% SYRINGE 50 ML IVP PRN ×2 (18:23)
--- NOTE | 2022-09-02 18:23 | P.CNPUL ---
History of Present Illness Consult date: 09/02/22 Chief complaint: Altered mental status History of present illness: This is a 57-year-old male patient who came into the emergency department unre sponsive. There has been significant alteration in his mentation. According to the , the patient has been having hallucinations, weakness, altered mentation, falls and today the patient was unable to give himself and he collapsed on the floor. EMS came to the scene. Blood sugar was 96 and the patient was completely unresponsive. Pupils were equal and reactive. According to the , the patient has history of prostate cancer. He was having some issues with prostatism and urinary retention. He was recently diagnosed having UTI and he was given Bactrim by his urologist. No fever. No nausea or vomiting or chest pain. No aspiration. The patient has history of peripheral neuropathy and has had history of frequent falls. He came into the ED and the patient was completely unresponsive. Immediately, cholesterol evaluation was initiated. The patient was given a CT angiogram that showed no evidence of any large vessel intracranial artery occlusion. No significant stenosis. The common and internal carotid arteries were patent. Intracranial arteries were also patent without significant stenosis. CAT scan of the brain was negative. No seizure activity. Based undergone complete unresponsiveness, the patient was intubated and placed on a mechanical ventilator. At this point in time, the patient is on no sedation. He grimaces only to painful stimulation. He has a positive cough and a gag. The patient is on a mechanical ventilator on assist control mode with a rate of 24, tidal volume 450, FiO2 of 60% with PEEP of 10. The blood gas immediately after intubation on 100% FiO2 showed a pH of 7.3 with a pCO2 of 49 and pO2 of 279. The patient had a chest x-ray that showed adequate positioning of 82. There was some left lower lobe atelectasis. The patient's WBC count is 6.3 with hemoglobin of benefit palpable 47. Normal cognition. 5. Sodium is 1:30, serum bicarbonate of 17 with a BUN of 25 and a creatinine of 2.4 this is a new onset acute kidney injury. Troponins are negative. UA showed 6 WBCs. Urine screen was positive for benzodiazepine. CoVID19 testing was negative. Influenza screen was negative. CAT scan of the brain showed chronic small v essel ischemic changes. Arthritic Changes of the C1. Markedly less distention of the esophagus with circumferential wall thickening. Trace pleural effusions also seen in addition to background COPD. Review of Systems ROS unobtainable: due to endotracheal tube Past Medical History Past Medical History: Coronary Artery Disease (CAD), Cancer, Diabetes Mellitus, Hyperlipidemia, Hypertension Additional Past Medical History / Comment(s): Patient states he has prostate cancer, has chosen no treatment History of Any Multi-Drug Resistant Organisms: None Reported Past Surgical History: Heart Catheterization With Stent Additional Past Surgical History / Comment(s): Back surgery years ago, neck surgery appox 2010; patient had heart catheterization with stent, states approximately 1992; recalls he had stents in groin in 2002, 2004, 2006 Past Anesthesia/Blood Transfusion Reactions: No Reported Reaction Additional Past Anesthesia/Blood Transfusion Reaction / Comment(s): Patient aspirated post-surgically Past Psychological History: No Psychological Hx Reported Smoking Status: Never smoker Past Alcohol Use History: None Reported Past Drug Use History: None Reported - Past Family History Father Family Medical History: Cancer Mother Family Medical History: Diabetes Mellitus Medications and Allergies Home Medications Medication Instructions Recorded Confirmed Type Gabapentin [Neurontin] 300 mg PO TID 05/29/18 09/02/22 History Simvastatin 40 mg PO HS 05/29/18 09/02/22 History glipiZIDE XL [Glucotrol XL] 5 mg PO DAILY 05/29/18 09/02/22 History Metoprolol Tartrate [Lopressor] 25 mg PO BID 12/19/18 09/02/22 History Terazosin HCl 2 mg PO DAILY 12/19/18 09/02/22 History metFORMIN HCL [Glucophage] 500 mg PO BID 12/19/18 09/02/22 History Escitalopram Oxalate [Lexapro] 10 mg PO DAILY 09/02/22 09/02/22 History Sulfamethoxazole/Trimethoprim 1 tab PO BID 09/02/22 09/02/22 History [Bactrim DS 800-160 mg] Allergies Allergy/AdvReac Type Severity Reaction Status Date / Time No Known Allergies Allergy Verified 09/02/22 15:26 Physical Exam Vitals: Vital Signs Pulse Resp BP Pulse Ox FiO2 09/02/22 18:01 60 09/02/22 16:59 50 09/02/22 16:50 80 16 136/73 98 09/02/22 16:40 82 16 138/74 98 09/02/22 16:30 84 16 140/73 98 09/02/22 16:20 87 16 144/76 98 09/02/22 16:10 92 16 134/70 98 09/02/22 16:01 100 09/02/22 16:00 92 16 131/66 98 09/02/22 15:50 96 16 126/63 99 09/02/22 15:40 96 14 145/72 98 Intake and Output 09/02/22 09/02/22 09/02/22 06:59 14:59 22:59 Other: Weight 65.771 kg The patient is calm/comfortable, not in acute distress, not receiving any sedation and intubated on a mechanical ventilator. He would grimace to painful stimulation. He has a positive cough and a gag Head exam was generally normal. There was no scleral icterus or corneal arcus. Mucous membranes were moist. Neck was supple and without jugular venous distension, thyromegaly, or carotid bruits. Carotids were easily palpable bilaterally. There was no adenopathy. Orogastric and orotracheal tube in place. Lungs sounds are diminished in the lung bases bilaterally special left lung base. Scattered wheeze Cardiac exam revealed the PMI to be normally situated and sized. The rhythm was regular and no extrasystoles were noted during several minutes of auscultation. The first and second heart sounds were normal and physiologic splitting of the second heart sound was noted. There were no murmurs, rubs, clicks, or gallops. Abdominal exam revealed normal bowel sounds. The abdomen was soft, non-tender, and without masses, organomegaly, or appreciable enlargement of the abdominal aorta. Examination of the extremities revealed easily palpable radial, femoral and pedal pulses. There was no cyanosis, clubbing or edema. Examination of the skin revealed no evidence of significant rashes, suspicious appearing nevi or other concerning lesions. Neurologically the patient is unresponsive. No facial asymmetry. Pupils are round 3 mm in size symmetric and reactive to light. No nystagmus. No seizure activity. Motor and sensory functions cannot be assessed. Reflexes are diminished in all 4 extremities. Negative Babinski. Negative clonus Results - Laboratory Findings CBC and BMP: 09/02/22 15:24 09/02/22 15:24 ABG ABG pH 7.30 (7.35-7.45) L 09/02/22 16:32 ABG pCO2 49 mmHg (35-45) H 09/02/22 16:32 ABG pO2 279 mmHg (83-108) H 09/02/22 16:32 ABG O2 Saturation 99.0 % (94-97) H 09/02/22 16:32 PT/INR, D-dimer PT 10.8 sec (9.0-12.0) 09/02/22 15:24 INR 1.0 (<1.2) 09/02/22 15:24 Abnormal lab findings: Abnormal Labs 09/02/22 09/02/22 09/02/22 15:24 15:24 16:32 RBC 3.81 L Hgb 10.0 L Hct 31.0 L Plt Count 147 L Lymphocytes # 0.7 L ABG pH 7.30 L ABG pCO2 49 H ABG pO2 279 H ABG Total CO2 26 H ABG O2 Saturation 99.0 H Sodium 130 L Chloride 97 L Carbon Dioxide 17 L BUN 25 H Creatinine 2.43 H Glucose 170 H Total Protein 5.5 L Albumin 3.3 L Ur Leukocyte Esterase Urine WBC Urine Mucus U Benzodiazepines Scrn 09/02/22 16:34 RBC Hgb Hct Plt Count Lymphocytes # ABG pH ABG pCO2 ABG pO2 ABG Total CO2 ABG O2 Saturation Sodium Chloride Carbon Dioxide BUN Creatinine Glucose Total Protein Albumin Ur Leukocyte Esterase Small H Urine WBC 6 H Urine Mucus Rare H U Benzodiazepines Scrn Detected H - Diagnostic Findings Chest x-ray: image reviewed Assessment and Plan Plan: Acute change in mental status, probably related to encephalopathy could be infectious versus drug-induced. The patient was taking Bactrim on an outpatient basis for underlying UTI. Neuro workup is negative including a CAT scan of the brain and a CT angiogram. UTI being treated on outpatient basis with Bactrim Acute kidney injury with a component of melena negative metabolic acidosis. Rule out drug induced. Acute hypoxic respiratory failure. Left lower lobe atelectasis based on chest x-ray findings. COPD abdomen active and stable Coronary artery disease with previous cardiac catheterization stenting many years back Prostate cancer, not receiving any treatment Peripheral neuropathy with frequent falls Diabetes mellitus Hypertension Hyperlipidemia. Plan Admit this patient to the intensive care unit. No sedation for now and monitor the mental status, use Precedex if needed Continue ventilator support and the patient currently is on FiO2 of 60% with a PEEP of 10 Sputum Gram stain and culture and blood culture and urine cultures IV antibiotic coverage with IV Zosyn IV fluids, normal saline at a rate of 130 Sliding-scale insulin coverage The Talbot catheter in place and obtain a ultrasound the kidneys to rule out hydronephrosis Echocardiogram in a.m. This patient ICU and will continue to follow. Case was discussed with the family. Condition is critical. May need another CAT scan of the brain and neuro consultation of the patient does not demonstrate any significant recovery in his neurologic functions. Time with Patient: Greater than 30
[2022-09-02] MEDS: PIPERACILLIN-TAZOBACTAM 3.375 GM in SODIUM CHLORIDE 0.9% 100 ML IVPB SCH (19:54)
--- NOTE | 2022-09-02 21:23 | US ---
EXAMINATION TYPE: US kidneys/renal and bladder DATE OF EXAM: 09/02/2022 COMPARISON: NONE CLINICAL HISTORY: TARUN. TARUN. Pt on vent, exam limited EXAM MEASUREMENTS: Right Kidney: 10.5 x 5.0 x 5.2 cm Left Kidney: 10.3 x 4.8 x 6.6 cm Right Kidney: No hydronephrosis or masses seen Left Kidney: Cyst in inferior pole measuring 3.4 x 3.1 x 3.1cm Bladder: Empty due to stone Bilateral Jets seen: No IMPRESSION: No evidence of solid renal mass or obstruction. Small left renal cortical cyst. Urinary bladder was e mpty.
[2022-09-02 21:56] LABS: Glucose,Whole Blood 85 mg/dL (70-110)
[2022-09-02] MEDS: INSULIN ASPART (NovoLOG) 100 UNIT/ML VIAL SQ SCH (22:51)
[2022-09-02] MEDS: ASPIRIN 300 MG SUPP RECTAL STA (22:52)
[2022-09-02] MEDS ORDERED: SODIUM CHLORIDE 0.9% 1,000 ML IV ONE (22:54)
[2022-09-02] MEDS: CHLORHEXIDINE GLUCONATE 15 ML CUP MUCOUS MEM SCH (23:00)
[2022-09-03] MEDS: INSULIN ASPART (NovoLOG) 100 UNIT/ML VIAL SQ SCH ×4 (00:10→21:14)
[2022-09-03] MEDS ORDERED: SODIUM CHLORIDE 0.9% 1,000 ML IV ONE (00:15)
[2022-09-03] MEDS: ASPIRIN 300 MG SUPP RECTAL STA (00:29)
[2022-09-03] MEDS: PIPERACILLIN-TAZOBACTAM 3.375 GM in SODIUM CHLORIDE 0.9% 100 ML IVPB SCH ×3 (03:03→17:02)
--- NOTE | 2022-09-03 03:32 | HP ---
HISTORY AND PHYSICAL CHIEF COMPLAINT: The patient is seen and evaluated in the [facility] ER supposedly going to ICU. He is a full code. New criteria. He is 5 feet 10 inches height, weight 65.771 kg, BSA 1.82 m2, BMI 20.8 kg/m2. His allergy is unknown. The patient brought by EMS in unconscious state to the emergency room at [facility], and the family was following the patient. History obtained from the family, his stated when she is on the bedside in the Trauma 1 and his son and his daughter and she stated that whole started yesterday and today and prior to that he was fine. Three days ago, he had urinary tract infection and he has underlying history of prostate enlargement with benign prostatic hypertrophy plus that he had elevated PSA with the monitored prostate cancer by Dr. Donny Coombs, Urologist. He received because of the urine infection, Bactrim DS 1 tablet twice a day and he only used 6 tablets. However, the second day of the use, he became confused, lethargic, and his stated he became not responding and sitting on the chair, he also tipped over and today he became unconscious and at that time they called ambulance and brought him to the emergency room, where he was seen and evaluated by the ER physician, and because he was having respiratory failure and metabolic acidosis, they intubated and resuscitated the patient. His heart was continued to work and his thought to do CPR on him, but the ambulance came and brought him to the hospital. In the hospital, the patient was started on IV fluid and intubated and Talbot catheter was placed with a good urine output and laboratory was obtained. HISTORY OF PRESENT ILLNESS: As mentioned above, the patient is not responding. He is intubated and he is on the vent and he is subsequently going to the ICU room, which is not assigned yet, and seen in the ER by myself as well as Dr. Soto. I did also reviewed with the and the daughter and the son extendedly on his previous visits and his laboratory in the past and he had a complete physical recently was done in July 2022 and he was doing very well at that time with his laboratory done at [facility] and was indicating a good result. Expect the prostate enlargement as well as elevated PSA with the underlying prostate cancer, which has malignant tumor and has been followed by Dr. Calvin Coombs. PAST MEDICAL HISTORY: 1. He had history of peripheral vascular disease and aortobifem bypass he stated done in [facility] then, and he had history of emphysema and chronic obstructive lung disease. 2. History of hypertension, which has been controlled and in previous visit that on his physical, his blood pressure was also controlled and was 110/62 and his BMI at that time 25.8. His weight was 152.6 pounds and his height 64.5 inches. His heart rate was regular, 66 beats per minute. Normal sinus rhythm with the saturation 97% on August 09, 2022 on his physical in the office. The patient has history of abnormal problem with retina. He has been seen by Dr. Baires and Dr. Montanez and she is a retina specialist working with Dr. Yuni Mazariegos, the manugrapher, and at that time they evaluated him and they gave him followup after 8 weeks. The visit was on August 24, 2022. ALLERGIES: Unknown. CURRENT LIST OF MEDICATIONS: 1. He was on metformin for diabetes mellitus, 1 tablet twice a day 500 mg. 2. He is also on escitalopram 10 mg once a day. 3. Glipizide 5 mg 1 tablet once daily. 4. Terazosin 2 mg once daily. 5. He is also on simvastatin 40 mg once daily with hyperlipidemia and he has been seen by Dr. Padron, Cardiology for followup on heart. 6. He is using an Accu-Chek to monitor his blood sugar, which has been doing very well prior to this admission. 7. He is also on 81 mg of aspirin once daily. 8. He is on PreserVision Areds for his eyes OTC. 9. He is on Neurontin 300 mg 3 times a day from the Neurologist, Dr. Mathias for neuropathy. 10.He is also on metoprolol tartrate 25 mg twice a day. With the underlying past medical history, he had history of aortobifem bypass and he has lens implants for cataract by Dr. Aleena Mazariegos. He had tonsillectomy and he had also adenoidectomy in childhood and he had a repair of his left ankle and he had back surgery in 1978 and he had history of smoking and ex smoker with a history of emphysema. He had history of herniated disk with surgery on 12/31 at [facility], Dr. Hutson. SOCIAL HISTORY: He is . He lives with his . He had 5 sons and 1 daughter and one of the sons was with him today in the hospital and also the daughter. He is a former smoker and he ended smoking in 1998 and he used to smoke 5 pack per 7 days. Currently, the patient is retired and he has disability due to his back problem and he had a family history of cancer of the prostate himself and also a brother of him. Otherwise, he has 3 sisters in good health and one of them of brain cancer and one of them breast cancer and one of them cancer of unknown type. His father at age of 86 with the questionable lung cancer. Heart disease in his mother. He has himself diabetes mellitus type 2 and also his mother is diabetic and a sister diabetic as well. His mother at age of 75, cause of , heart attack. The arthritis was present in his sister and brother and mother and father. He has 1 sister, who has lupus. REVIEW OF SYSTEMS: Unable to be obtained due to the fact the patient is unconscious and could not communicate and intubated. History and the event obtained from and son and a daughter. PHYSICAL EXAMINATION: VITAL SIGNS: Indicating that on admission to the emergency room, his blood pressure initially was 134/70 and his heart rate is 92, respiratory rate 16, and saturation was 98 and at the time seen by myself his heart rate was 82 beats per minute, in sinus rhythm and regular. Respiratory rate was on the vent 16 and a blood pressure 138/74, and pulse ox on the machine was 98%. HEENT: Head was normocephalic, atraumatic. Still the pupil was reactive and intubated through oropharynx. NECK: Supple and no JVD. LUNGS: Bilaterally irrigated with the endotracheal tube and no wheezes and the chest x- ray was no evidence of infiltrate. HEART: PMI in the 5th intercostal space. Normal S1, S2. No gallop and he had previously echocardiogram was done by Dr. Enriquez and was ejection fraction 55% and with the questionable pulmonary hypertension as mentioned in the chest x-ray reported on this admission. ABDOMEN: There is no rebound tenderness and we understand that the patient has aortobifem bypass. However, there is no significant tenderness or pain or grimacing or drop in his hemoglobin significantly and no bruises in the groin and no hernias in the groin area. Perfusion of his leg was normal and positive pulses in the popliteal and dorsalis pedis and posterior tibial. PSYCHIATRIC: Could not be obtained. NEUROLOGICAL: He has bilateral elevation of the big toe with the striking the feet on the plantar flex and he has the event as he lost his breathing as the said, we did not able to find home many minutes that the patient could not breathe despite they tried to push on his chest and suspicious of encephalopathy is anoxic versus metabolic. ASSESSMENT: 1. Unconscious, unresponsive patient. He is intubated and currently on IV fluid and his Talbot catheter in place and he has a very good urine output and also underlying laboratory indicating as I did review it and found that his ABG indicating that his pH of 7.3 with the acidosis and pCO2 was 49 elevated. However, he had history of emphysema and history of ex-smoker. His PO2 was 279 at the time after the intubation and his saturation 99%. His base excess -1.9 with a FiO2 of 100%. On the chemistry found also that his CO2 content is 17 and which is suggestive of metabolic acidosis versus respiratory and his sodium mildly hyponatremic 130, potassium 4.7, chloride 97. His blood sugar was 170. His BUN is 25. However, the creatinine was significantly elevated from his baseline which is 0.9 and today 2.43 with the acute kidney injury. His estimated GFR is 23 and used to be 90. As mentioned, creatinine today 2.43. His calcium is 8.4 today and magnesium 1.9 and total bilirubin 0.6, AST 18, ALT 14, alkaline phosphatase 99, and troponin less than 0.012. Total protein 5.5, albumin 3.3, magnesium 1.9, and lactic acid 1.5. The drug screen appeared to be having a positive for benzodiazepine. His white count is normal 6.3, hemoglobin is 10.0, and hematocrit 31.0, which no significant drop from 11, and the platelet count 147. Mild hypochromasia. The urinalysis showed that the urine was clear and pH of 5.5, negative nitrite, and negative blood and trace leukocyte, negative glucose, negative ketone and 1 cast with the leukocyte small, which does not indicate really severe infection present. However, so far, the patient had in the ER, the sepsis workup because of his complete at the time of arrival not responding, was no activity and intubated at that time. 2. Acute kidney injury with the laboratory result indicating that; however, metabolic acidosis was highly on the list in association with possible Bactrim-induced; however, it is only 6 tablets used and may be incidental occasionally. PLAN: 1. As mentioned, the patient was seen by Critical Care and Pulmonary, Dr. Soto. 2. Consultation with Neurology. 3. Consultation with Nephrology with acute kidney injury. MMODL / IJN: [id number] /
[2022-09-03 05:58] LABS: Glucose,Whole Blood 71 mg/dL (70-110)
[2022-09-03 05:58] LABS: Glucose,Whole Blood 66 mg/dL (70-110)
--- NOTE | 2022-09-03 07:21 | XR ---
EXAMINATION TYPE: XR chest 1V portable DATE OF EXAM: 09/03/2022 COMPARISON: Chest x-ray 09/02/2022 HISTORY: Intubated TECHNIQUE: Single frontal view of the chest is obtained. FINDINGS: Patient is rotated. Endotracheal tube and NG tube are overlying appropriate positions with NG tube having been advanced in the interval, patient is rotated. No evident pneumothorax. Cardiac m ediastinal silhouette is stable, aorta is dense. Interstitium is increased. Central vascularity is pr ominent. Left hemidiaphragm appears partially obscured, basilar density noted in the retrocardiac reg ion. IMPRESSION: Correlate for possible interstitial edema, basilar atelectasis versus pneumonia, congest yogi heart failure not excluded
[2022-09-03 08:11] LABS: Glucose,Whole Blood 71 mg/dL (70-110)
[2022-09-03 08:15] LABS: HCT 26.3 % (39.0-53.0); Hypochromasia Marked; MCH 26.1 pg (25.0-35.0); MCHC 31.5 g/dL (31.0-37.0); MCV 82.8 fL (80.0-100.0); Mean Platelet Volume 9.7; Platelet Count 103 k/uL (150-450); RBC 3.17 m/uL (4.30-5.90); RDW 14.9 % (11.5-15.5); WBC 5.3 k/uL (3.8-10.6)
[2022-09-03 08:29] LABS: HGB 8.3 gm/dL (13.0-17.5)
[2022-09-03 08:31] LABS: Albumin 2.4 g/dL (3.5-5.0); Calcium 7.3 mg/dL (8.4-10.2); Potassium 3.6 mmol/L (3.5-5.1); Total Bilirubin 0.6 mg/dL (0.2-1.3); Total Protein 4.3 g/dL (6.3-8.2)
[2022-09-03] MEDS: CHLORHEXIDINE GLUCONATE 15 ML CUP MUCOUS MEM SCH (08:52)
[2022-09-03 08:54] LABS: Eosinophils # (M) 0.16 k/uL (0-0.7); Lymphocytes # (M) 0.53 k/uL (1.0-4.8); Monocytes # (M) 0.16 k/uL (0-1.0); Neutrophils # (M) 4.45 k/uL (1.3-7.7); Neutrophils % (M) 84 %; Nucleated Red Blood Cells 0 /100 WBC (0-0); Total Cells Counted 100
--- NOTE | 2022-09-03 10:04 | P.PN ---
Subjective Progress Note Date: 09/03/22 This is a 57-year-old male patient who came into the emergency department unresponsive. There has been significant alteration in his mentation. According to the , the patient has been having hallucinations, weakness, altered mentation, falls and today the patient was unable to give himself and he collapsed on the floor. EMS came to the scene. Blood sugar was 96 and the patient was completely unresponsive. Pupils were equal and reactive. According to the , the patient has history of prostate cancer. He was having some issues with prostatism and urinary retention. He was recently diagnosed having UTI and he was given Bactrim by his urologist. No fever. No nausea or vomiting or chest pain. No aspiration. The patient has history of peripheral neuropathy and has had history of frequent falls. He came into the ED and the patient was completely unresponsive. Immediately, cholesterol evaluation was initiated. The patient was given a CT angiogram that showed no evidence of any large vessel intracranial artery occlusion. No significant stenosis. The common and internal carotid arteries were patent. Intracranial arteries were also patent without significant stenosis. CAT scan of the brain was negative. No seizure activity. Based undergone complete unresponsiveness, the patient was intubated and placed on a mechanical ventilator. At this point in time, the patient is on no sedation. He grimaces only to painful stimulation. He has a positive cough and a gag. The patient is on a mechanical ventilator on assist control mode with a rate of 24, tidal volume 450, FiO2 of 60% with PEEP of 10. The blood gas immediately after intubation on 100% FiO2 showed a pH of 7.3 with a pCO2 of 49 and pO2 of 279. The patient had a chest x-ray that showed adequate positioning of 82. There was some left lower lobe atelectasis. The patient's WBC count is 6.3 with hemoglobin of benefit palpable 47. Normal cognition. 5. Sodium is 1:30, serum bicarbonate of 17 with a BUN of 25 and a creatinine of 2.4 this is a new onset acute kidney injury. Troponins are negative. UA showed 6 WBCs. Urine screen was positive for benzodiazepine. CoVID19 testing was negative. Influenza screen was negative. CAT scan of the brain showed chronic small vessel ischemic changes. Arthritic Changes of the C1. Markedly less distention of the esophagus with circumferential wall thickening. Trace pleural effusions also seen in addition to background COPD. 09/03/2022, I'm seeing the patient for a follow-up. The patient came in today emergency completely unresponsive. He was intubated and I evaluated him in the emergency department and subsequently accepted admission to the ICU. Overnight, the patient became progressively more responsive. He became slightly agitated. Such, he was started on propofol to control his agitation. This morning, he was taken off the propofol and the patient is wide awake, following commands and answering questions appropriately. He is moving all 4 extremities without limitation. He has excellent cough and a gag for now. The patient remains on a mechanical ventilator, this morning he was at a rate of 24, tidal volume of 450 mL with a ferritin of 60% and a PEEP of 10. His blood gas shows some low pO2. Nevertheless, this was a long meeting the patient did not look cyanotic or hypoxic and his pulse ox on the monitor was up to 99%. peak/static pressures are not elevated. As such, I check weaning parameters after stopping the sedation and the patient demonstrated excellent weaning parameters. She was given a spontaneous breathing trial and his pulse ox remained above 99% without any desaturations. The chest x-ray showed some small left-sided pleural effusion and some interstitial infiltrates bilaterally along with some bibasilar atelectatic change could be related to early pneumonia versus CHF/interstitial edema. The patient will be extubated today. The patient is otherwise of 5.3 with a hemoglobin of 8.3. The sodium is 133 with a potassium level of 3.6 and a chloride of 106 with a bicarb of 20. BNP is at 17 with a creatinine of 1.07. His pro calcitonin level is at 0.2. His cultures are still pending and they are negative thus far the patient was, with IV Zosyn. Postextubation, the patient was able to communicate. He was placed on oxygen at 3 L nasal cannula. Is currently on IV fluids and he is receiving normal saline at the rate of 130 mL an hour. Objective - Vital Signs Vital signs: Vital Signs Temp 98.4 F 09/03/22 08:00 Pulse 72 09/03/22 08:30 Resp 21 09/03/22 08:30 BP 114/64 09/03/22 08:30 Pulse Ox 100 09/03/22 08:30 FiO2 100 09/03/22 08:00 Intake & Output 09/02/22 09/03/2209/03/22 18:59 06:59 18:59 Intake Total 2120.605 149.929 Output Total 1435 45 Balance 685.605 104.929 Weight 72.5 kg 73 kg Intake: IV 2040 130 Sodium Chloride 0.9% 1, 1040 130 000 ml @ 130 mls/hr IV . Q7H42M [facility] Rx#:[id number] Sodium Chloride 0.9% 1, 1000 000 ml @ 999 mls/hr IV . Q1H1M ONE Rx#:[id number] Intake, IV Titration 80.605 19.929 Amount propofoL 1,000 mg In 80.605 19.929 Empty Bag 1 bag @ 15 MCG/ KG/MIN 5.919 mls/hr IV . [id number] Rx#:[id number] Output: Gastric Drainage 800 Urine 635 45 Other: Voiding Method Indwelling Catheter - Exam The patient is calm/comfortable, awake and alert and communicating and is currently on 3 physiologic by nasal cannula, extubated Head exam was generally normal. There was no scleral icterus or corneal arcus. Mucous membranes were moist. Neck was supple and without jugular venous distension, thyromegaly, or carotid bruits. Carotids were easily palpable bilaterally. There was no adenopathy. Orogastric and orotracheal tube in place. Lungs sounds are diminished in the lung bases bilaterally special left lung base. Scattered wheeze Cardiac exam revealed the PMI to be normally situated and sized. The rhythm was regular and no extrasystoles were noted during several minutes of auscultation. The first and second heart sounds were normal and physiologic splitting of the second heart sound was noted. There were no murmurs, rubs, clicks, or gallops. Abdominal exam revealed normal bowel sounds. The abdomen was soft, non-tender, and without masses, organomegaly, or appreciable enlargement of the abdominal aorta. Examination of the extremities revealed easily palpable radial, femoral and pedal pulses. There was no cyanosis, clubbing or edema. Examination of the skin revealed no evidence of significant rashes, suspicious appearing nevi or other concerning lesions. Neurologically the patient is responsive and there is no evidence of any focal neurological deficits for now. Following commands and moving all 4 extremities. - Labs CBC & Chem 7: 09/03/22 07:25 09/03/22 07:25 Labs: Abnormal Lab Results - Last 24 Hours (Table) 09/02/22 09/02/22 09/02/22 Range/Units 15:24 15:24 16:32 RBC 3.81 L (4.30-5.90) m/uL Hgb 10.0 L (13.0-17.5) gm/dL Hct 31.0 L (39.0-53.0) % Plt Count 147 L (150-450) k/uL Lymphocytes # 0.7 L (1.0-4.8) k/uL Lymphocytes # (Manual) (1.0-4.8) k/uL ABG pH 7.30 L (7.35-7.45) ABG pCO2 49 H (35-45) mmHg ABG pO2 279 H (83-108) mmHg ABG Total CO2 26 H (19-24) mmol/L ABG O2 Saturation 99.0 H (94-97) % Sodium 130 L (137-145) mmol/L Chloride 97 L (98-107) mmol/L Carbon Dioxide 17 L (22-30) mmol/L BUN 25 H (9-20) mg/dL Creatinine 2.43 H (0.66-1.25) mg/dL Glucose 170 H (74-99) mg/dL POC Glucose (mg/dL) (70-110) mg/dL Calcium (8.4-10.2) mg/dL Total Protein 5.5 L (6.3-8.2) g/dL Albumin 3.3 L (3.5-5.0) g/dL Procalcitonin (0.02-0.09) ng/mL Ur Leukocyte Esterase (Negative) Urine WBC (0-5) /hpf Urine Mucus (None) /hpf U Benzodiazepines Scrn (NotDetected) 09/02/22 09/02/22 09/03/22 Range/Units 16:34 17:18 05:56 RBC (4.30-5.90) m/uL Hgb (13.0-17.5) gm/dL Hct (39.0-53.0) % Plt Count (150-450) k/uL Lymphocytes # (1.0-4.8) k/uL Lymphocytes # (Manual) (1.0-4.8) k/uL ABG pH (7.35-7.45) ABG pCO2 (35-45) mmHg ABG pO2 (83-108) mmHg ABG Total CO2 (19-24) mmol/L ABG O2 Saturation (94-97) % Sodium (137-145) mmol/L Chloride (98-107) mmol/L Carbon Dioxide (22-30) mmol/L BUN (9-20) mg/dL Creatinine (0.66-1.25) mg/dL Glucose (74-99) mg/dL POC Glucose (mg/dL) 66 L (70-110) mg/dL Calcium (8.4-10.2) mg/dL Total Protein (6.3-8.2) g/dL Albumin (3.5-5.0) g/dL Procalcitonin 0.20 H (0.02-0.09) ng/mL Ur Leukocyte Esterase Small H (Negative) Urine WBC 6 H (0-5) /hpf Urine Mucus Rare H (None) /hpf U Benzodiazepines Scrn Detected H (NotDetected) 09/03/22 09/03/22 Range/Units 07:25 07:25 RBC 3.17 L (4.30-5.90) m/uL Hgb 8.3 L D (13.0-17.5) gm/dL Hct 26.3 L (39.0-53.0) % Plt Count 103 L (150-450) k/uL Lymphocytes # (1.0-4.8) k/uL Lymphocytes # (Manual) 0.53 L (1.0-4.8) k/uL ABG pH (7.35-7.45) ABG pCO2 (35-45) mmHg ABG pO2 (83-108) mmHg ABG Total CO2 (19-24) mmol/L ABG O2 Saturation (94-97) % Sodium 133 L (137-145) mmol/L Chloride (98-107) mmol/L Carbon Dioxide 20 L (22-30) mmol/L BUN (9-20) mg/dL Creatinine (0.66-1.25) mg/dL Glucose 67 L (74-99) mg/dL POC Glucose (mg/dL) (70-110) mg/dL Calcium 7.3 L (8.4-10.2) mg/dL Total Protein 4.3 L (6.3-8.2) g/dL Albumin 2.4 L (3.5-5.0) g/dL Procalcitonin (0.02-0.09) ng/mL Ur Leukocyte Esterase (Negative) Urine WBC (0-5) /hpf Urine Mucus (None) /hpf U Benzodiazepines Scrn (NotDetected) Microbiology - Last 24 Hours (Table) 09/02/22 20:11 Gram Stain - Preliminary Sputum Sputum Culture - Preliminary 09/02/22 16:34 Urine Culture - Preliminary Urine,Catheterized Assessment and Plan Plan: Acute change in mental status, probably related to encephalopathy could be infectious versus drug-induced. The patient was taking Bactrim on an outpatient basis for underlying UTI. Neuro workup is negative including a CAT scan of the brain and a CT angiogram. On today's evaluation, the patient has been taken off sedation his neurologic function essentially within normal limits. He was given a weaning trial and subsequently was extubated and the patient is following commands and answering questions appropriately. No focal neurological deficits. Acute respiratory failure, intubated and placed on mechanical ventilator for airway protection. The patient also had some left lower lobe atelectasis. Currently is extubated to 3 is approximately by nasal cannula. Chest exit from today shows some mild interstitial infiltrates. UTI being treated on outpatient basis with Bactrim Acute kidney injury with a component of melena negative metabolic acidosis. Rule out drug induced. The patient's renal function has normalized. The creatinine is normal. Left lower lobe atelectasis based on chest x-ray findings. COPD abdomen active and stable Coronary artery disease with previous cardiac catheterization stenting many years back Prostate cancer, not receiving any treatment Peripheral neuropathy with frequent falls Diabetes mellitus Hypertension Hyperlipidemia. Plan Extubated to 3 L of O2 nasal cannula I'm going to reduce the IV fluids to 75 an hour The patient will be kept on IV Zosyn Awaiting further cultures Renal function is normalized provide incentive spirometer We'll provide diet 3 hours post extubation Sliding-scale insulin coverage The Talbot catheter in place and obtain a ultrasound the kidneys to rule out hydronephrosis Echocardiogram This patient ICU and will continue to follow. Case was discussed with the family. This evaluation was done in 30 minutes Evaluation,/workup in progress as the patient was extubated.
[2022-09-03] MEDS: SODIUM CHLORIDE 0.9% 1,000 ML IV SCH (10:59)
--- NOTE | 2022-09-03 11:01 | P.CNNES ---
History of Present Illness Consult date: 09/03/22 History of Present Illness: The pt is a 87 y/o male who is seen in neurologic consultation on 2021, via teleneurology. History is obtained from the chart. The patient is intubated and is unable to provide a history. According to review of history and physical, the patient was recently started on Bactrim DS for a urinary tract infection. He reportedly has only taken 6 pills. It was reported that he began to have side effects almost immediately, consisting of confusion, lethargy and weakness. The patient reportedly had a fall. On the day of presentation to the emergency department, he was found at home, unresponsive. EMS was called is seen. The patient continued to be unresponsive. His blood sugar was reportedly 96. In the emergency department, the patient was intubated for airway protection. Laboratory evaluation revealed acute kidney injury with metabolic acidosis. CT scan of the brain and CT angiogram of the head and neck revealed no signs of acute hemorrhage, infarct or large vessel occlusion. The patient reportedly has a history of prostate cancer and is being followed for this he is normally able to walk and take care of his own personal needs. Past Medical History Past Medical History: Coronary Artery Disease (CAD), Cancer, Diabetes Mellitus, Hyperlipidemia, Hypertension Additional Past Medical History / Comment(s): Patient states he has prostate cancer, has chosen no treatment History of Any Multi-Drug Resistant Organisms: None Reported Past Surgical History: Heart Catheterization With Stent Additional Past Surgical History / Comment(s): Back surgery years ago, neck surgery appox 2010; patient had heart catheterization with stent, states approximately 1992; recalls he had stents in groin in 2002, 2004, 2006 Past Anesthesia/Blood Transfusion Reactions: No Reported Reaction Additional Past Anesthesia/Blood Transfusion Reaction / Comment(s): Patient aspirated post-surgically Date of Last Stent Placement:: 1992 Past Psychological History: No Psychological Hx Reported Smoking Status: Never smoker Past Alcohol Use History: None Reported Past Drug Use History: None Reported - Past Family History Father Family Medical History: Cancer Mother Family Medical History: Diabetes Mellitus Medications and Allergies Home Medications Medication Instructions Recorded Confirmed Type Gabapentin [Neurontin] 300 mg PO TID 05/29/18 09/02/22 History Simvastatin 40 mg PO HS 05/29/18 09/02/22 History glipiZIDE XL [Glucotrol XL] 5 mg PO DAILY 05/29/18 09/02/22 History Metoprolol Tartrate [Lopressor] 25 mg PO BID 12/19/18 09/02/22 History Terazosin HCl 2 mg PO DAILY 12/19/18 09/02/22 History metFORMIN HCL [Glucophage] 500 mg PO BID 12/19/18 09/02/22 History Escitalopram Oxalate [Lexapro] 10 mg PO DAILY 09/02/22 09/02/22 History Sulfamethoxazole/Trimethoprim 1 tab PO BID 09/02/22 09/02/22 History [Bactrim DS 800-160 mg] Allergies Allergy/AdvReac Type Severity Reaction Status Date / Time No Known Allergies Allergy Verified 09/02/22 15:26 Physical Examination - Vital Signs Vital Signs: Vital Signs Temp Pulse Pulse Resp BP Pulse Ox FiO2 09/03/22 08:30 72 21 114/64 100 09/03/22 08:00 98.4 F 63 20 100/56 99 100 09/03/22 07:47 100 09/03/22 07:30 65 20 85/49 98 09/03/22 07:00 66 20 99/52 98 09/03/22 06:45 67 20 90/50 98 09/03/22 06:30 67 24 104/61 99 09/03/22 06:15 71 18 135/73 09/03/22 06:00 81 10 L 92/53 98 09/03/22 05:45 68 21 117/55 98 09/03/22 05:30 75 20 109/63 99 09/03/22 05:15 69 20 85/48 99 09/03/22 05:00 76 20 94/51 98 09/03/22 04:45 79 20 83/49 09/03/22 04:30 68 20 91/49 98 09/03/22 04:23 67 21 91/49 98 09/03/22 04:04 65 20 105/56 99 09/03/22 03:52 66 20 60 09/03/22 03:48 98.5 F 77 20 98/66 99 60 09/03/22 03:43 60 09/03/22 03:42 60 09/03/22 03:30 68 20 98/56 98 09/03/22 03:15 67 20 109/57 09/03/22 03:00 68 20 103/59 99 09/03/22 02:45 70 20 97/55 09/03/22 02:30 70 20 84/57 09/03/22 02:15 66 20 92/55 99 09/03/22 02:00 69 20 82/48 99 09/03/22 01:46 67 20 98 09/03/22 01:15 88 20 118/71 99 09/03/22 01:00 85 36 H 94/52 100 09/03/22 00:45 71 20 09/03/22 00:30 81 20 83/50 98 09/03/22 00:17 60 09/03/22 00:15 79 20 70/42 98 09/03/22 00:13 75 20 97 09/03/22 00:00 99.1 F 73 20 87/50 96 60 09/02/22 23:49 71 20 60 09/02/22 23:45 71 20 135/69 09/02/22 23:30 83 13 133/74 96 09/02/22 23:15 90 15 110/67 09/02/22 23:00 84 13 66/44 98 09/02/22 22:45 80 20 68/44 96 09/02/22 22:38 78 20 60 09/02/22 22:00 98.9 F 81 20 99/64 98 09/02/22 21:45 60 09/02/22 21:28 78 14 121/62 99 09/02/22 21:06 80 14 125/67 98 09/02/22 20:49 82 14 139/86 98 09/02/22 20:13 60 09/02/22 19:55 82 14 81/49 97 09/02/22 18:20 75 14 115/61 96 09/02/22 18:10 75 12 124/68 93 L 09/02/22 18:01 60 09/02/22 18:00 77 14 105/55 89 L 09/02/22 17:50 72 14 118/61 89 L 09/02/22 17:40 77 14 144/70 89 L 09/02/22 17:30 85 14 124/71 90 L 09/02/22 17:20 85 16 114/58 88 L 09/02/22 17:10 81 14 114/57 90 L 09/02/22 17:00 80 14 125/61 97 09/02/22 16:59 50 09/02/22 16:50 80 16 136/73 98 09/02/22 16:40 82 16 138/74 98 09/02/22 16:30 84 16 140/73 98 09/02/22 16:20 87 16 144/76 98 09/02/22 16:10 92 16 134/70 98 09/02/22 16:01 100 09/02/22 16:00 92 16 131/66 98 09/02/22 15:50 96 16 126/63 99 09/02/22 15:40 96 14 145/72 98 09/02/22 15:30 98.7 F 99 16 140/71 99 09/02/22 15:15 98.7 F 104 H 16 155/88 98 09/02/22 15:10 98.7 F 104 H 14 154/86 98 Intake and Output 09/02/22 09/03/22 09/03/22 22:59 06:59 14:59 Intake Total 12.068 2108.537 149.929 Output Total 1435 45 Balance 12.068 673.537 104.929 Intake: IV 2040 130 Sodium Chloride 0.9% 1, 1040 130 000 ml @ 130 mls/hr IV . Q7H42M [facility] Rx#:[id number] Sodium Chloride 0.9% 1, 1000 000 ml @ 999 mls/hr IV . Q1H1M ONE Rx#:[id number] Intake, IV Titration 12.068 68.537 19.929 Amount propofoL 1,000 mg In 12.068 68.537 19.929 Empty Bag 1 bag @ 15 MCG/ KG/MIN 5.919 mls/hr IV . [id number] [facility] Rx#:[id number] Output: Gastric Drainage 800 Urine 635 45 Other: Voiding Method Indwelling Catheter Indwelling Catheter Weight 72.5 kg 73 kg Gen.: The patient is supine in the bed. He is intubated. He is awake. He is in no acute distress. Sedation has been placed on hold. HEENT: Head is atraumatic, normocephalic. Fundus not visualized. There is no scleral icterus. Mucous membranes are moist. Neck: Supple Heart: Regular rate and rhythm Lungs: Clear to auscultation Extremities: Without edema. There is ecchymosis of the right arm and reported pain with movement Neurological examination Mental status: The patient is awake and alert. He is able to appropriately answer yes/no questions. He is able to follow commands. Cranial nerves: Pupils are equal at 2 mm and reactive. Visual kwok are full to confrontation. Extraocular movements are intact. There is no nystagmus. Facial sensation is intact. There is left ptosis (old, per patient). Gag reflex is intact. Shoulder shrug is symmetric. Motor: Strength is intact and symmetric throughout. Sensation: Intact to light touch throughout. Deep tendon reflexes: 2+/4+ in the upper extremities. 3+/4+ at the knees. Plantar responses are difficult to assess secondary to withdrawal. Coordination: There is no tremor or ataxia noted Gait: Unable to be assessed at this time Results - Laboratory Findings CBC and BMP: 09/03/22 07:25 09/03/22 07:25 Abnormal Lab Findings: Abnormal Labs 09/02/22 09/02/22 09/02/22 15:24 15:24 16:32 RBC 3.81 L Hgb 10.0 L Hct 31.0 L Plt Count 147 L Lymphocytes # 0.7 L ABG pH 7.30 L ABG pCO2 49 H ABG pO2 279 H ABG Total CO2 26 H ABG O2 Saturation 99.0 H Sodium 130 L Chloride 97 L Carbon Dioxide 17 L BUN 25 H Creatinine 2.43 H Glucose 170 H POC Glucose (mg/dL) Calcium Total Protein 5.5 L Albumin 3.3 L Procalcitonin Ur Leukocyte Esterase Urine WBC Urine Mucus U Benzodiazepines Scrn 09/02/22 09/02/22 09/03/22 16:34 17:18 05:56 RBC Hgb Hct Plt Count Lymphocytes # ABG pH ABG pCO2 ABG pO2 ABG Total CO2 ABG O2 Saturation Sodium Chloride Carbon Dioxide BUN Creatinine Glucose POC Glucose (mg/dL) 66 L Calcium Total Protein Albumin Procalcitonin 0.20 H Ur Leukocyte Esterase Small H Urine WBC 6 H Urine Mucus Rare H U Benzodiazepines Scrn Detected H 09/03/22 09/03/22 07:25 07:25 RBC 3.17 L Hgb 8.3 L D Hct 26.3 L Plt Count 103 L Lymphocytes # ABG pH ABG pCO2 ABG pO2 ABG Total CO2 ABG O2 Saturation Sodium 133 L Chloride Carbon Dioxide 20 L BUN Creatinine Glucose 67 L POC Glucose (mg/dL) Calcium 7.3 L Total Protein 4.3 L Albumin 2.4 L Procalcitonin Ur Leukocyte Esterase Urine WBC Urine Mucus U Benzodiazepines Scrn - Diagnostic Findings Comments: CT scan of the brain and CT angiogram of the head and neck images have been personally reviewed. I agree with the radiology report. Assessment and Plan Assessment: 1. Episode of loss of consciousness, possible seizure and postictal state, perhaps provoked by Bactrim versus cardiac origin 2. Metabolic acidosis 3. Acute kidney injury 4. Reported urinary tract infection Plan: 1. EEG to evaluate for possible epileptiform activity 2. Cardiac workup 3. Agree with holding sedation and weaning from respirator Time with Patient: Greater than 30 (spent 40 minutes with patient in the intensive care unit, reviewing history, imaging, labs and preparing the note)
[2022-09-03 11:37] LABS: Glucose,Whole Blood 89 mg/dL (70-110)
[2022-09-03] MEDS ORDERED: INSULIN ASPART (NovoLOG) 100 UNIT/ML VIAL SQ SCH (12:00)
--- NOTE | 2022-09-03 12:43 | P.NPCON ---
History of Present Illness - Reason for Consult Consult date: 09/03/22 acute renal failure - Chief Complaint Loss of consciousness - History of Present Illness This is a 87-year-old male seen in consultation because of acute kidney injury He came in because of loss of consciousness which was witnessed by his who is trying to help him walk. He has fallen before but has not passed out before. EMS was called is brought to the hospital The hospital he was intubated and has been extubated. He is awake alert oriented Has generalized weakness. He is able to recall most of his details fairly well Denies any nausea vomiting headache fever chills cough. He was taking Bactrim after seeing his physician but denied having any significant complaints suggesti ve of bladder infection. He had difficulty passing urine though. No history of taking any nonsteroidals. Is known with coronary artery disease diabetes mellitus hypertension and hyperlipidemia and prostate cancer Past Medical History Past Medical History: Coronary Artery Disease (CAD), Cancer, Diabetes Mellitus, Hyperlipidemia, Hypertension Additional Past Medical History / Comment(s): Patient states he has prostate cancer, has chosen no treatment History of Any Multi-Drug Resistant Organisms: None Reported Past Surgical History: Heart Catheterization With Stent Additional Past Surgical History / Comment(s): Back surgery years ago, neck surgery appox 2010; patient had heart catheterization with stent, states approximately 1992; recalls he had stents in groin in 2002, 2004, 2006 Past Anesthesia/Blood Transfusion Reactions: No Reported Reaction Additional Past Anesthesia/Blood Transfusion Reaction / Comment(s): Patient aspirated post-surgically Date of Last Stent Placement:: 1992 Past Psychological History: No Psychological Hx Reported Smoking Status: Never smoker Past Alcohol Use History: None Reported Past Drug Use History: None Reported - Past Family History Father Family Medical History: Cancer Mother Family Medical History: Diabetes Mellitus Medications and Allergies Home Medications Medication Instructions Recorded Confirmed Type Gabapentin [Neurontin] 300 mg PO TID 05/29/18 09/02/22 History Simvastatin 40 mg PO HS 05/29/18 09/02/22 History glipiZIDE XL [Glucotrol XL] 5 mg PO DAILY 05/29/18 09/02/22 History Metoprolol Tartrate [Lopressor] 25 mg PO BID 12/19/18 09/02/22 History Terazosin HCl 2 mg PO DAILY 12/19/18 09/02/22 History metFORMIN HCL [Glucophage] 500 mg PO BID 12/19/18 09/02/22 History Escitalopram Oxalate [Lexapro] 10 mg PO DAILY 09/02/22 09/02/22 History Sulfamethoxazole/Trimethoprim 1 tab PO BID 09/02/22 09/02/22 History [Bactrim DS 800-160 mg] Allergies Allergy/AdvReac Type Severity Reaction Status Date / Time No Known Allergies Allergy Verified 09/02/22 15:26 Physical Exam Vitals: Vital Signs Temp Pulse Pulse Resp BP Pulse Ox FiO2 09/03/22 12:00 98.7 F 78 15 138/87 95 09/03/22 11:00 88 23 142/73 95 09/03/22 10:00 97 15 129/73 98 09/03/22 09:00 71 18 126/61 99 100 09/03/22 08:30 72 21 114/64 100 09/03/22 08:00 98.4 F 63 20 100/56 99 100 09/03/22 07:47 100 09/03/22 07:30 65 20 85/49 98 09/03/22 07:00 66 20 99/52 98 09/03/22 06:45 67 20 90/50 98 09/03/22 06:30 67 24 104/61 99 09/03/22 06:15 71 18 135/73 09/03/22 06:00 81 10 L 92/53 98 09/03/22 05:45 68 21 117/55 98 09/03/22 05:30 75 20 109/63 99 09/03/22 05:15 69 20 85/48 99 09/03/22 05:00 76 20 94/51 98 09/03/22 04:45 79 20 83/49 09/03/22 04:30 68 20 91/49 98 09/03/22 04:23 67 21 91/49 98 09/03/22 04:04 65 20 105/56 99 09/03/22 03:52 66 20 60 09/03/22 03:48 98.5 F 77 20 98/66 99 60 09/03/22 03:43 60 09/03/22 03:42 60 09/03/22 03:30 68 20 98/56 98 09/03/22 03:15 67 20 109/57 09/03/22 03:00 68 20 103/59 99 09/03/22 02:45 70 20 97/55 09/03/22 02:30 70 20 84/57 09/03/22 02:15 66 20 92/55 99 09/03/22 02:00 69 20 82/48 99 09/03/22 01:46 67 20 98 09/03/22 01:15 88 20 118/71 99 09/03/22 01:00 85 36 H 94/52 100 09/03/22 00:45 71 20 09/03/22 00:30 81 20 83/50 98 09/03/22 00:17 60 09/03/22 00:15 79 20 70/42 98 09/03/22 00:13 75 20 97 09/03/22 00:00 99.1 F 73 20 87/50 96 60 09/02/22 23:49 71 20 60 09/02/22 23:45 71 20 135/69 09/02/22 23:30 83 13 133/74 96 09/02/22 23:15 90 15 110/67 09/02/22 23:00 84 13 66/44 98 09/02/22 22:45 80 20 68/44 96 09/02/22 22:38 78 20 60 09/02/22 22:00 98.9 F 81 20 99/64 98 09/02/22 21:45 60 09/02/22 21:28 78 14 121/62 99 09/02/22 21:06 80 14 125/67 98 09/02/22 20:49 82 14 139/86 98 09/02/22 20:13 60 09/02/22 19:55 82 14 81/49 97 09/02/22 18:20 75 14 115/61 96 09/02/22 18:10 75 12 124/68 93 L 09/02/22 18:01 60 09/02/22 18:00 77 14 105/55 89 L 09/02/22 17:50 72 14 118/61 89 L 09/02/22 17:40 77 14 144/70 89 L 09/02/22 17:30 85 14 124/71 90 L 09/02/22 17:20 85 16 114/58 88 L 09/02/22 17:10 81 14 114/57 90 L 09/02/22 17:00 80 14 125/61 97 09/02/22 16:59 50 09/02/22 16:50 80 16 136/73 98 09/02/22 16:40 82 16 138/74 98 09/02/22 16:30 84 16 140/73 98 09/02/22 16:20 87 16 144/76 98 09/02/22 16:10 92 16 134/70 98 09/02/22 16:01 100 09/02/22 16:00 92 16 131/66 98 09/02/22 15:50 96 16 126/63 99 09/02/22 15:40 96 14 145/72 98 09/02/22 15:30 98.7 F 99 16 140/71 99 09/02/22 15:15 98.7 F 104 H 16 155/88 98 09/02/22 15:10 98.7 F 104 H 14 154/86 98 Intake and Output 09/02/22 09/03/22 09/03/22 22:59 06:59 14:59 Intake Total 12.068 2108.537 659.929 Output Total 1435 820 Balance 12.068 673.537 -160.071 Intake: IV 2040 640 Piperacillin-Tazobactam 3 100 .375 gm In Sodium Chloride 0.9% 100 ml @ 25 mls/hr IVPB Q8H [facility] Rx#: [id number] Sodium Chloride 0.9% 1, 1040 390 000 ml @ 130 mls/hr IV . [id number] [facility] Rx#:[id number] Sodium Chloride 0.9% 1, 150 000 ml @ 75 mls/hr IV . [id number] [facility] Rx#:[id number] Sodium Chloride 0.9% 1, 1000 000 ml @ 999 mls/hr IV . Q1H1M [facility] Rx#:[id number] Intake, IV Titration 12.068 68.537 19.929 Amount propofoL 1,000 mg In 12.068 68.537 19.929 Empty Bag 1 bag @ 15 MCG/ KG/MIN 5.919 mls/hr IV . [id number] [facility] Rx#:[id number] Output: Gastric Drainage 800 300 Urine 635 520 Other: Voiding Method Indwelling Catheter Indwelling Catheter Indwelling Catheter Weight 72.5 kg 73 kg Currently awake alert oriented comfortable able to speak and is oriented 3 HEENT exam no JVP neck is supple no facial asymmetry Lungs are clear to auscultation fair air entry bilaterally Heart sounds unremarkable for any murmur rub gallop or rub abdomen soft nontender Extremity exam was no edema Neurologically awake alert oriented but generalized weakness. Results - Lab Results Most recent lab results ABG pH 7.30 (7.35-7.45) L 09/02/22 16:32 ABG pCO2 49 mmHg (35-45) H 09/02/22 16:32 ABG pO2 279 mmHg (83-108) H 09/02/22 16:32 ABG HCO3 25 mmol/L (21-25) 09/02/22 16:32 ABG O2 Saturation 99.0 % (94-97) H 09/02/22 16:32 Calcium 7.3 mg/dL (8.4-10.2) L 09/03/22 07:25 Magnesium 1.9 mg/dL (1.6-2.3) 09/02/22 16:34 09/03/22 07:25 09/03/22 07:25 Assessment and Plan Assessment: Impression 1. Acute kidney injury from possibly hypotension and decreased intake. Additionally Bactrim may have caused his acute kidney injury although he took it only for 3 days.. Creatinine improved from 2.4-1.0. 2. Mild degree of hyponatremia scan to volume depletion, sodium improved from 1:30 milliequivalents 133. 3. Mild degree of non-gap acidosis from acute kidney injury. 4. History of ASHD. 5. Admitted with syncope cause not very clear neurology is following up. Recommendation 1. Agree with IV fluids, but change or active Ringer's because of the acidosis 2. Sodium is expected to improve further 3. Urinalysis is not suggestive of any urinary tract infection and therefore no need for antibiotics as well as cystitis is concerned. Thank you for this consultation we'll continue to follow
[2022-09-03] MEDS ORDERED: Potassium Replacement Protocol 1 EACH MISC MISCELLANE PRN (14:47)
[2022-09-03 16:11] LABS: Glucose,Whole Blood 100 mg/dL (70-110)
[2022-09-03] MEDS ORDERED: POTASSIUM CHLORIDE ER 20 MEQ TAB.ER PO SCH (17:00)
[2022-09-03 21:06] LABS: Glucose,Whole Blood 90 mg/dL (70-110)
--- NOTE | 2022-09-03 23:47 | PN ---
PROGRESS NOTE An 87-year-old white male, . LOCATION: In ICU 260, bed 1. NEW DATA: HE IS A FULL CODE. He is 5 feet 10 inches height, weight 73 kg, BSA 1.90 m2, BMI 23.1 kg/m2. ALLERGIES: Unknown. SUBJECTIVE: The patient is seen today, evaluated, and he is in the ICU room, and he was extubated at 8:[address] Soto after he had a chest x-ray, and the patient did very well post extubation and currently able to communicate and talk to the family, his as well as his daughter at bedside. Vital signs; his temperature is 98.7 F oral, heart rate regular at 78 beats per minute, respiratory rate 15 per minute and nonlabored, blood pressure 138/87 with a mean arterial pressure of 97, his oxygen saturation on 3 L is 95%. The patient has also had laboratory in this morning indicating the white count 5.3 and hemoglobin dropped to 8.3 and hematocrit 26.3, MCV 82.8, and platelet count 103. He had marked hypochromasia, and we will be planning for obtaining iron studies. Chemistry indicating sodium 133, however, it was 130 before and currently improved with the IV fluid, seen by the Dr. Ramirez, lube worker and he changed his IV fluid. Potassium normal at 3.6; chloride 106; carbon dioxide is 20, still in the low side, it was before yesterday at 17 and today is improved with hydration with the underlying metabolic acidosis. His anion gap is normal at 7 with non-anion gap, acute kidney injury, and he has no history of renal failure, however, he had history of prostate cancer, has been followed for the last [address] Donny Coombs. Still, his PSA is elevated. However, today after hydration, his BUN is 17 and creatinine 1.02, with the significant improvement of the IV fluid due to underlying history of dehydration, his and his daughter and the patient himself is now able to communicate, he only drinks small glass of water x2 a day and a cup of coffee added to his medication that he used to take for diabetes to avoid going to the bathroom, and new information, he was unable to urinate in spite that he is feeling that he wants to urinate and he had a Talbot catheter at this time, is draining well clear urine with no evidence of infection. His glucose in the morning hour was 67 without medication and could be prolonged effect of diabetic medication, which has been held on admission and only treated with insulin to scale; however, his POC glucose has been perfectly normal, has been since yesterday at 85, 71, 71, 89, and there is no need for any insulin given so far in his presence in the hospital. His calcium is 7.3, and his bilirubin 0.6, and AST 20, ALT 11, alkaline phosphatase 67. Started intake today after we extubated him and started to eat. Total protein was 4.3 and albumin was 2.4. OBJECTIVE: Otherwise, he is on the exam, GENERAL: The patient is awake, alert, able to communicate with his and his daughter and he feel much better on today after he had extubated and able to swallow and eat without any soreness or dysphagia. He had no lateralizing sign. HEENT: His head was normocephalic and atraumatic. Pupils equal and reactive. Oropharynx was negative. NECK: Supple. No lymphadenopathy. CHEST: Normal breath sounds bilaterally. We have mild increased anteroposterior diameter with the underlying history of emphysema and COPD with the ex-smoker in the past. HEART: PMI in the 5th intercostal space. Regular sinus rhythm and no chest pain. ABDOMEN: Soft. Positive bowel sounds, and no tenderness although we know that he had the [id number] bypass stent in the past. HEMATOLOGIC: With the hydration, the hemoglobin dropped to 8.3 and on admission was 10.0, which apparently with the underlying severe dehydration, however, we will be obtaining his iron study and stool for Hemoccult for workup to exclude any other etiology. EXTREMITIES: He is able to bend both knees, raise his leg up as well as his arms. NEURO: No neuro deficit. Note the patient was interviewed by a neurologist on the screen and no added information, and I do not believe that the patient has seizure. Next, also a note from the Nephrology, Dr. Ramirez, and he indicating the acute kidney injury with possible dehydration and hypotension and also of note could be the interference with the medication as the antibiotic. PSYCHIATRY: Normal mood and stable. ASSESSMENT: 1. Definitely with the drop of hemoglobin, he has dehydration, was moderately to severe, with the IV was started in the ER 130, today wean down to 75 mL/h, and his hemoglobin dropped to 8.3 from 10 as mentioned above. He had mild hyponatremia, which is improving. His intubation has been discontinued and now he is breathing spontaneously. 2. Underlying metabolic acidosis, could be secondary to the medication for diabetes as well as medication for the urinary tract infection with a history that with the use of the Bactrim DS twice a day, the patient took only 6 tablets and started to become lethargic and confused. 3. History of chronic obstructive pulmonary disease and history of emphysema, indicated by the testing, and CT was ordered and a chest x-ray, normal liver function. 4. He had a prostate cancer, was followed for 10 years. 5. Underlying urinary retention and inability to urinate, and currently, he has a Talbot catheter and currently, the patient followed by the Critical Care and Pulmonary, Dr. Soto as well and Dr. Ramirez of Nephrology, and we will repeat lab in the a.m. as well as the studies for the iron and drop of hemoglobin and probably, we will be consulting the Urology for the underlying urinary retention, Dr. Coombs. 6. Diabetes mellitus as well is controlled and he is only on insulin to scale and probably will not be adding anything else orally at this time. Discussed with his daughter and his with the length of time more than 35 minutes and discussion with the family. LISS / LBN: [id number] /
[2022-09-04] MEDS: PIPERACILLIN-TAZOBACTAM 3.375 GM in SODIUM CHLORIDE 0.9% 100 ML IVPB SCH ×3 (01:25→17:24)
[2022-09-04 06:07] LABS: African American GFR (CKD) >90 (>60 ml/min/1.73 sqM); Anion Gap 7 mmol/L; Blood Urea Nitrogen 12 mg/dL (9-20); Calcium 7.7 mg/dL (8.4-10.2); Carbon Dioxide 23 mmol/L (22-30); Chloride 102 mmol/L (98-107); Glucose 92 mg/dL (74-99); Magnesium 1.7 mg/dL (1.6-2.3); Non-African American GFR(CKD) >90 (>60 ml/min/1.73 sqM); Potassium 4.3 mmol/L (3.5-5.1); Sodium 132 mmol/L (137-145)
[2022-09-04] MEDS: INSULIN ASPART (NovoLOG) 100 UNIT/ML VIAL SQ SCH ×4 (06:11→21:20)
[2022-09-04] MEDS: SODIUM CHLORIDE 0.9% 1,000 ML IV SCH (06:30)
[2022-09-04] MEDS: MAGNESIUM SULFATE-D5W PMX 1 GM in DEXTROSE/WATER 1 100ML.BAG IVPB SCH ×2 (06:31→07:52)
[2022-09-04 06:39] LABS: Basophils % (A) 0 %; Eosinophils # (A) 0.5 k/uL (0-0.7); Eosinophils % (A) 8 %; HCT 29.1 % (39.0-53.0); HGB 9.1 gm/dL (13.0-17.5); Hypochromasia Marked; Lymphocytes # (A) 0.7 k/uL (1.0-4.8); Lymphocytes % (A) 11 %; MCH 25.7 pg (25.0-35.0); MCHC 31.1 g/dL (31.0-37.0); MCV 82.7 fL (80.0-100.0); Mean Platelet Volume 9.7; Monocytes # (A) 0.5 k/uL (0-1.0); Monocytes % (A) 8 %; Neutrophils # (A) 4.6 k/uL (1.3-7.7); Neutrophils % (A) 71 %; Platelet Count 122 k/uL (150-450); RBC 3.52 m/uL (4.30-5.90); WBC 6.5 k/uL (3.8-10.6)
--- NOTE | 2022-09-04 07:39 | XR ---
EXAMINATION TYPE: XR chest 1V portable DATE OF EXAM: 09/04/2022 COMPARISON: Chest x-ray 09/03/2022 HISTORY: Extubated, abnormal chest x-ray TECHNIQUE: Single frontal view of the chest is obtained. FINDINGS: Endotracheal tube and NG tube have been removed. Patchy densities are present bilaterally especially in the lung bases, interstitial changes noted in the upper lobes. No evident pneumothorax. Left costophrenic angle not included on exam. Cardiac mediastinal silhouette is stable. The aorta is dense. IMPRESSION: Correlate to exclude pneumonia versus atelectasis, congestive heart failure not excluded there is underlying emphysema.
[2022-09-04 09:09] LABS: % Iron Saturation 3.62 (15.00-50.00); Iron 10 ug/dL (65-175); Prealbumin 12.6 mg/dL (18.0-42.0); Total Iron Binding Capacity 281 ug/dL (228-460)
[2022-09-04] MEDS ORDERED: ONDANSETRON 4 MG/2 ML VIAL ONE (09:58)
[2022-09-04] MEDS ORDERED: FUROSEMIDE 10 MG/ML 2 ML VIAL IV ONE (10:06)
--- NOTE | 2022-09-04 10:06 | P.PN ---
Subjective Progress Note Date: 09/04/22 This is a 57-year-old male patient who came into the emergency department unresponsive. There has been significant alteration in his mentation. According to the , the patient has been having hallucinations, weakness, altered mentation, falls and today the patient was unable to give himself and he collapsed on the floor. EMS came to the scene. Blood sugar was 96 and the patient was completely unresponsive. Pupils were equal and reactive. According to the , the patient has history of prostate cancer. He was having some issues with prostatism and urinary retention. He was recently diagnosed having UTI and he was given Bactrim by his urologist. No fever. No nausea or vomiting or chest pain. No aspiration. The patient has history of peripheral neuropathy and has had history of frequent falls. He came into the ED and the patient was completely unresponsive. Immediately, cholesterol evaluation was initiated. The patient was given a CT angiogram that showed no evidence of any large vessel intracranial artery occlusion. No significant stenosis. The common and internal carotid arteries were patent. Intracranial arteries were also patent without significant stenosis. CAT scan of the brain was negative. No seizure activity. Based undergone complete unresponsiveness, the patient was intubated and placed on a mechanical ventilator. At this point in time, the patient is on no sedation. He grimaces only to painful stimulation. He has a positive cough and a gag. The patient is on a mechanical ventilator on assist control mode with a rate of 24, tidal volume 450, FiO2 of 60% with PEEP of 10. The blood gas immediately after intubation on 100% FiO2 showed a pH of 7.3 with a pCO2 of 49 and pO2 of 279. The patient had a chest x-ray that showed adequate positioning of 82. There was some left lower lobe atelectasis. The patient's WBC count is 6.3 with hemoglobin of benefit palpable 47. Normal cognition. 5. Sodium is 1:30, serum bicarbonate of 17 with a BUN of 25 and a creatinine of 2.4 this is a new onset acute kidney injury. Troponins are negative. UA showed 6 WBCs. Urine screen was positive for benzodiazepine. CoVID19 testing was negative. Influenza screen was negative. CAT scan of the brain showed chronic small vessel ischemic changes. Arthritic Changes of the C1. Markedly less distention of the esophagus with circumferential wall thickening. Trace pleural effusions also seen in addition to background COPD. 09/03/2022, I'm seeing the patient for a follow-up. The patient came in today emergency completely unresponsive. He was intubated and I evaluated him in the emergency department and subsequently accepted admission to the ICU. Overnight, the patient became progressively more responsive. He became slightly agitated. Such, he was started on propofol to control his agitation. This morning, he was taken off the propofol and the patient is wide awake, following commands and answering questions appropriately. He is moving all 4 extremities without limitation. He has excellent cough and a gag for now. The patient remains on a mechanical ventilator, this morning he was at a rate of 24, tidal volume of 450 mL with a ferritin of 60% and a PEEP of 10. His blood gas shows some low pO2. Nevertheless, this was a long meeting the patient did not look cyanotic or hypoxic and his pulse ox on the monitor was up to 99%. peak/static pressures are not elevated. As such, I check weaning parameters after stopping the sedation and the patient demonstrated excellent weaning parameters. She was given a spontaneous breathing trial and his pulse ox remained above 99% without any desaturations. The chest x-ray showed some small left-sided pleural effusion and some interstitial infiltrates bilaterally along with some bibasilar atelectatic change could be related to early pneumonia versus CHF/interstitial edema. The patient will be extubated today. The patient is otherwise of 5.3 with a hemoglobin of 8.3. The sodium is 133 with a potassium level of 3.6 and a chloride of 106 with a bicarb of 20. BNP is at 17 with a creatinine of 1.07. His pro calcitonin level is at 0.2. His cultures are still pending and they are negative thus far the patient was, with IV Zosyn. Postextubation, the patient was able to communicate. He was placed on oxygen at 3 L nasal cannula. Is currently on IV fluids and he is receiving normal saline at the rate of 130 mL an hour. 09/04/2022, the patient remains extubated and patient is about 40 per minute cannula. On today's chest x-ray, there is some interval worsening in the bilateral pulmonary infiltrates. He is on 4 L for now. Note that the septic workup has been negative. The patient's pro calcitonin level was minimally elevated. The white cell count is at 6.5 and the patient's hemoglobin is at 5.1 and a platelet count is at 122. Sodium is 132. BUN is at 12 with a creatinine of 0.6. Tolerating diet. Using the incentive spirometer. Awake and alert and responsive. No other significant events overnight. Ultrasound of the kidney was done and it showed no evidence of renal masses or obstruction or hydronephrosis. Nephrology consultation was also obtained and the patient was essentially cleared from a neuro standpoint. He is awake and alert and fo llowing commands. Objective - Vital Signs Vital signs: Vital Signs Temp 98.5 F 09/04/22 08:00 Pulse 78 09/04/22 08:00 Resp 21 09/04/22 08:00 BP 117/78 09/04/22 08:00 Pulse Ox 96 09/04/22 08:00 FiO2 100 09/03/22 09:00 Intake & Output 09/03/22 09/04/22 09/04/22 18:59 06:59 18:59 Intake Total 1209.929 975 175 Output Total 1925 1055 100 Balance -715.071 -80 75 Weight 73.845 kg Intake: IV 1190 975 175 Magnesium Sulfate-D5w Pmx 100 1 gm In Dextrose/Water 1 100ml.bag @ 100 mls/hr IVPB Q1H [facility] Rx#: [id number] Piperacillin-Tazobactam 3 200 .375 gm In Sodium Chloride 0.9% 100 ml @ 25 mls/hr IVPB Q8H [facility] Rx#: [id number] Sodium Chloride 0.9% 1, 390 000 ml @ 130 mls/hr IV . Q7H42M [facility] Rx#:[id number] Sodium Chloride 0.9% 1, 600 975 75 000 ml @ 75 mls/hr IV . [id number] [facility] Rx#:[id number] Intake, IV Titration 19.929 Amount propofoL 1,000 mg In 19.929 Empty Bag 1 bag @ 15 MCG/ KG/MIN 5.919 mls/hr IV . [id number] [facility] Rx#:[id number] Output: Gastric Drainage 300 Urine 1625 1055 100 Other: Voiding Method Indwelling Catheter Indwelling Catheter Indwelling Catheter - Exam The patient is calm/comfortable, awake and alert and communicating and is currently on 4 L 02 by nasal cannula, extubated Head exam was generally normal. There was no scleral icterus or corneal arcus. Mucous membranes were moist. Neck was supple and without jugular venous distension, thyromegaly, or carotid bruits. Carotids were easily palpable bilaterally. There was no adenopathy. Orogastric and orotracheal tube in place. Lungs sounds are diminished in the lung bases bilaterally special left lung base. Scattered wheeze Cardiac exam revealed the PMI to be normally situated and sized. The rhythm was regular and no extrasystoles were noted during several minutes of auscultation. The first and second heart sounds were normal and physiologic splitting of the second heart sound was noted. There were no murmurs, rubs, clicks, or gallops. Abdominal exam revealed normal bowel sounds. The abdomen was soft, non-tender, and without masses, organomegaly, or appreciable enlargement of the abdominal aorta. Examination of the extremities revealed easily palpable radial, femoral and pedal pulses. There was no cyanosis, clubbing or edema. Examination of the skin revealed no evidence of significant rashes, suspicious appearing nevi or other concerning lesions. Neurologically the patient is responsive and there is no evidence of any focal neurological deficits for now. Following commands and moving all 4 extremities. - Labs CBC & Chem 7: 09/04/22 05:12 09/04/22 05:12 Labs: Abnormal Lab Results - Last 24 Hours (Table) 09/04/22 09/04/22 Range/Units 05:12 05:12 RBC 3.52 L (4.30-5.90) m/uL Hgb 9.1 L (13.0-17.5) gm/dL Hct 29.1 L (39.0-53.0) % Plt Count 122 L (150-450) k/uL Lymphocytes # 0.7 L (1.0-4.8) k/uL Sodium 132 L (137-145) mmol/L Creatinine 0.61 L (0.66-1.25) mg/dL Calcium 7.7 L (8.4-10.2) mg/dL Iron 10 L (65-175) ug/dL % Saturation 3.62 L (15.00-50.00) Transferrin 201.0 L (204.0-354.0) mg/dL Prealbumin 12.6 L (18.0-42.0) mg/dL Microbiology - Last 24 Hours (Table) 09/03/22 00:31 Blood Culture - Preliminary Blood No Growth after 24 hours 09/03/22 00:15 Blood Culture - Preliminary Blood No Growth after 24 hours 09/02/22 16:34 Blood Culture - Preliminary Blood No Growth after 24 hours 09/02/22 20:11 Gram Stain - Preliminary Sputum Sputum Culture - Preliminary Assessment and Plan Plan: Acute change in mental status, probably related to encephalopathy could be infectious versus drug-induced. The patient was taking Bactrim on an outpatient basis for underlying UTI. Neuro workup is negative including a CAT scan of the brain and a CT angiogram. On today's evaluation, the patient has been taken off sedation his neurologic function essentially within normal limits. He was given a weaning trial and subsequently was extubated and the patient is following commands and answering questions appropriately. No focal neurological deficits. Acute respiratory failure, intubated and placed on mechanical ventilator for airway protection. The patient also had some left lower lobe atelectasis. Currently is extubated to 4 L 02 by nasal cannula. Chest exit from today shows some mild interstitial infiltrates. Slightly worse compared to yesterday. The patient was extubated yesterday. We'll continue his incentive spirometer. He is currently on IV Zosyn which will be continued. UTI being treated on outpatient basis with Bactrim Acute kidney injury with a component of melena negative metabolic acidosis. Rule out drug induced. The patient's renal function has normalized. The creatinine is normal. Left lower lobe atelectasis based on chest x-ray findings. COPD abdomen active and stable Coronary artery disease with previous cardiac catheterization stenting many years back Prostate cancer, not receiving any treatment Peripheral neuropathy with frequent falls Diabetes mellitus Hypertension Hyperlipidemia. Plan 4 L of O2 nasal cannula KVO IVF Lasix 20 mg IVPx1 Continue IV Zosyn Awaiting further cultures Renal function is normalized provide incentive spirometer Sliding-scale insulin coverage The Talbot catheter in place and obtain a ultrasound the kidneys show NO hydronephrosis Echocardiogram This patient wants DNR/DNI Transfer out of ICU
--- NOTE | 2022-09-04 11:18 | P.PN ---
Subjective Progress Note Date: 09/04/22 Principal diagnosis: This is an 87-year-old male seen in consultation because of acute kidney injury. Had a near syncopal episode and possibly was volume depleted from unclear cau ses, as well as was on Bactrim for about 3 days. He was transiently intubated for airway protection because of possibility of seizures. With hydration he has improved creatinine, his admission creatinine was 2.43 Vital signs stable blood pressure 110-120 and output is 2980. He vomited once today. No abdominal pain he is chronically constipated but today he does not feel that he is constipated. No dizziness. Objective - Vital Signs Vital signs: Vital Signs Temp 98.5 F 09/04/22 08:00 Pulse 64 09/04/22 10:00 Resp 17 09/04/22 10:00 BP 126/60 09/04/22 10:00 Pulse Ox 95 09/04/22 10:00 FiO2 100 09/03/22 09:00 Intake & Output 09/03/22 09/04/22 09/04/22 18:59 06:59 18:59 Intake Total 1209.929 975 325 Output Total 1925 1055 640 Balance -715.071 -80 -315 Weight 73.845 kg Intake: IV 1190 975 325 Magnesium Sulfate-D5w Pmx 100 1 gm In Dextrose/Water 1 100ml.bag @ 100 mls/hr IVPB Q1H [facility] Rx#: [id number] Piperacillin-Tazobactam 3 200 .375 gm In Sodium Chloride 0.9% 100 ml @ 25 mls/hr IVPB Q8H [facility] Rx#: [id number] Sodium Chloride 0.9% 1, 390 000 ml @ 130 mls/hr IV . Q7H42M [facility] Rx#:[id number] Sodium Chloride 0.9% 1, 600 975 225 000 ml @ 75 mls/hr IV . [id number] [facility] Rx#:[id number] Intake, IV Titration 19.929 Amount propofoL 1,000 mg In 19.929 Empty Bag 1 bag @ 15 MCG/ KG/MIN 5.919 mls/hr IV . [id number] [facility] Rx#:[id number] Output: Gastric Drainage 300 Urine 1625 1055 240 Emesis 400 Other: Voiding Method Indwelling Catheter Indwelling Catheter Indwelling Catheter Awake alert oriented No JVP Lungs clear to auscultation good air entry Heart sounds unremarkable Abdomen soft nontender nondistended Extremity exam was no edema Neurologically awake alert oriented - Labs CBC & Chem 7: 09/04/22 05:12 09/04/22 05:12 Labs: Abnormal Lab Results - Last 24 Hours (Table) 09/04/22 09/04/22 Range/Units 05:12 05:12 RBC 3.52 L (4.30-5.90) m/uL Hgb 9.1 L (13.0-17.5) gm/dL Hct 29.1 L (39.0-53.0) % Plt Count 122 L (150-450) k/uL Lymphocytes # 0.7 L (1.0-4.8) k/uL Sodium 132 L (137-145) mmol/L Creatinine 0.61 L (0.66-1.25) mg/dL Calcium 7.7 L (8.4-10.2) mg/dL Iron 10 L (65-175) ug/dL % Saturation 3.62 L (15.00-50.00) Transferrin 201.0 L (204.0-354.0) mg/dL Prealbumin 12.6 L (18.0-42.0) mg/dL Microbiology - Last 24 Hours (Table) 09/02/22 16:34 Urine Culture - Final Urine,Catheterized 09/03/22 00:31 Blood Culture - Preliminary Blood No Growth after 24 hours 09/03/22 00:15 Blood Culture - Preliminary Blood No Growth after 24 hours 09/02/22 16:34 Blood Culture - Preliminary Blood No Growth after 24 hours 09/02/22 20:11 Gram Stain - Preliminary Sputum Sputum Culture - Preliminary Assessment and Plan Assessment: Impression 1. Acute kidney injury from possibly hypotension and decreased intake. Additionally Bactrim may have caused his acute kidney injury although he took it only for 3 days.. Creatinine improved from 2.4>1.0 > 0.6, with good urine output. 2. Mild degree of hyponatremia scan to volume depletion, sodium improved from 1:30 milliequivalents 132. 3. Mild degree of non-gap acidosis from acute kidney injury, resolved bicarb is 23. 4. History of ASHD. 5. Admitted with syncope cause not very clear neurology is following up. Recommendation 1. Discontinue IV fluids 2. Watch sodium. 3. We will sign off his call us if necessary
[2022-09-04 11:44] LABS: Glucose,Whole Blood 116 mg/dL (70-110)
--- NOTE | 2022-09-04 14:11 | P.PN ---
Subjective Progress Note Date: 09/04/22 The patient is an 87-year-old male who is seen in neurologic follow-up on September 04, 2022, via teleneurology. The patient reports doing well this morning. His nurse also states that he has been up in the chair. He is eating and drinking without difficulty. The patient has no memory of the events surrounding his admission. Objective - Vital Signs Vital signs: Vital Signs Temp 98.5 F 09/04/22 08:00 Pulse 78 09/04/22 08:00 Resp 21 09/04/22 08:00 BP 117/78 09/04/22 08:00 Pulse Ox 96 09/04/22 08:00 FiO2 100 09/03/22 09:00 Intake & Output 09/03/22 09/04/22 09/04/22 18:59 06:59 18:59 Intake Total 1209.929 975 175 Output Total 1925 1055 100 Balance -715.071 -80 75 Weight 73.845 kg Intake: IV 1190 975 175 Magnesium Sulfate-D5w Pmx 100 1 gm In Dextrose/Water 1 100ml.bag @ 100 mls/hr IVPB Q1H [facility] Rx#: [id number] Piperacillin-Tazobactam 3 200 .375 gm In Sodium Chloride 0.9% 100 ml @ 25 mls/hr IVPB Q8H [facility] Rx#: [id number] Sodium Chloride 0.9% 1, 390 000 ml @ 130 mls/hr IV . Q7H42M [facility] Rx#:[id number] Sodium Chloride 0.9% 1, 600 975 75 000 ml @ 75 mls/hr IV . [id number] [facility] Rx#:[id number] Intake, IV Titration 19.929 Amount propofoL 1,000 mg In 19.929 Empty Bag 1 bag @ 15 MCG/ KG/MIN 5.919 mls/hr IV . [id number] [facility] Rx#:[id number] Output: Gastric Drainage 300 Urine 1625 1055 100 Other: Voiding Method Indwelling Catheter Indwelling Catheter Indwelling Catheter - Exam Gen.: The patient is reclining in the bed. He is well-nourished, well-developed and in no acute distress. He is no longer intubated. HEENT: Head is atraumatic, normocephalic. Fundus not visualized. There is no scleral icterus. Mucous membranes are moist. Neurological examination Mental status: The patient is awake, alert and oriented 3. His speech is clear. There is no dysarthria or aphasia Cranial nerves: Right pupil is 2 mm with the left being 3 mm. Both are reacti ve. Extraocular movements are intact. There is no nystagmus. Facial sensation is intact. There is no facial asymmetry. Hearing is grossly intact. Shoulder shrug is symmetric. Tongue protrudes midline. There is no evidence of bite. Motor: This patient is moving all 4 extremities equally. There is no focal or lateralizing weakness - Labs CBC & Chem 7: 09/04/22 05:12 09/04/22 05:12 Labs: Abnormal Lab Results - Last 24 Hours (Table) 09/03/22 09/04/22 09/04/22 Range/Units 07:25 05:12 05:12 RBC 3.52 L (4.30-5.90) m/uL Hgb 9.1 L (13.0-17.5) gm/dL Hct 29.1 L (39.0-53.0) % Plt Count 122 L (150-450) k/uL Lymphocytes # 0.7 L (1.0-4.8) k/uL Lymphocytes # (Manual) 0.53 L (1.0-4.8) k/uL Sodium 132 L (137-145) mmol/L Creatinine 0.61 L (0.66-1.25) mg/dL Calcium 7.7 L (8.4-10.2) mg/dL Microbiology - Last 24 Hours (Table) 09/03/22 00:31 Blood Culture - Preliminary Blood No Growth after 24 hours 09/03/22 00:15 Blood Culture - Preliminary Blood No Growth after 24 hours 09/02/22 16:34 Blood Culture - Preliminary Blood No Growth after 24 hours 09/02/22 20:11 Gram Stain - Preliminary Sputum Sputum Culture - Preliminary Assessment and Plan Assessment: 1. Episode of loss of consciousness, possible seizure and postictal state, perhaps provoked by Bactrim versus cardiac origin 2. Metabolic acidosis-resolving 3. Acute kidney injury-resolving 4. Reported urinary tract infection Plan: 1. EEG to evaluate for possible epileptiform activity 2. Cardiac workup Dr. Cardoso will assume neurologic coverage of this patient as of September 05, 2022 Time with Patient: Less than 30 (Spent 20 minutes examining patient, reviewing labs, documentation, imaging and preparing note)
[2022-09-04] MEDS ORDERED: ONDANSETRON 4 MG/2 ML VIAL IVP PRN (14:41)
--- NOTE | 2022-09-04 14:59 | CA ---
Transthoracic Echo Report Name: Adrian Marcelino Age: 87 Gender: M : 1935 Exam Date: 09/03/2022 11:40 Exam Location: [facility] Ht (in): 70 Wt (lb): 160 Ordering Physician: Chacorta Soto MD Attending/Referring Phys: Human Resources Vice President Hannah Wayne RDCS Procedure CPT: Indications: LV function Cardiac Hx: Technical Quality: Good Contrast 1: Total Dose (mL): Contrast 2: Total Dose (mL): MEASUREMENTS (Male / Female) Normal Values 2D ECHO LV Diastolic Diameter PLAX 4.6 cm 4.2 - 5.9 / 3.9 - 5.3 cm LV Systolic Diameter PLAX 2.9 cm IVS Diastolic Thickness 1.5 cm 0.6 - 1.0 / 0.6 - 0.9 cm LVPW Diastolic Thickness 1.5 cm 0.6 - 1.0 / 0.6 - 0.9 cm LV Relative Wall Thickness 0.6 RV Internal Dim ED PLAX 3.6 cm LA Systolic Diameter LX 3.9 cm 3.0 - 4.0 / 2.7 - 3.8 cm LA Volume 68.5 cm??? 18 - 58 / 22 - 52 cm??? M-MODE Aortic Root Diameter MM 3.6 cm MV E Point Septal Separation 0.3 cm AV Cusp Separation MM 2.0 cm DOPPLER AV Peak Velocity 187.5 cm/s AV Peak Gradient 14.1 mmHg AV Mean Velocity 140.5 cm/s AV Mean Gradient 8.5 mmHg AV Velocity Time Integral 42.8 cm MV Area PHT 3.1 cm??? Mitral E Point Velocity 101.4 cm/s Mitral A Point Velocity 119.8 cm/s Mitral E to A Ratio 0.8 MV Deceleration Time 246.8 ms MV E' Velocity 7.0 cm/s Mitral E to MV E' Ratio 14.5 TR Peak Velocity 282.8 cm/s TR Peak Gradient 32.0 mmHg Right Ventricular Systolic Press 37.0 mmHg FINDINGS Left Ventricle Left ventricular ejection fraction is estimated at 60-65 %. Left ventricular cavity size normal. Moderately increased septal wall thickness. Right Ventricle Mild right ventricular dilatation. Mild pulmonary hypertension. Right Atrium Normal right atrial size. Left Atrium Mildly increased left atrial volume. No evidence for an atrial septal defect. Mitral Valve Structurally normal mitral valve. No mitral stenosis, regurgitation or prolapse. Aortic Valve Trileaflet aortic valve. No aortic valve stenosis or regurgitation. Tricuspid Valve Mild tricuspid regurgitation. Pulmonic Valve Structurally normal pulmonic valve. Pericardium Normal pericardium. No pericardial effusion. Aorta Normal size aortic root and proximal ascending aorta. CONCLUSIONS LVH with preserved systolic function Left atrial enlargement Previewed by: Dr. Frank Green MD (Electronically Signed) Final Date: 04 September 2022 14:59
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
[2022-09-04 15:19] LABS: Ionized Calcium 4.7 mg/dL (4.5-5.3)
[2022-09-04 16:45] LABS: Glucose,Whole Blood 95 mg/dL (70-110)
[2022-09-04] MEDS: FERROUS SULFATE 325 MG TAB PO SCH (16:46)
--- NOTE | 2022-09-04 19:25 | P.GSCN ---
History of Present Illness Consult date: 09/04/22 History of present illness: 87 yo male in the hospital with mental and respiratory status changes possibly due to sepsis. He is known to Dr Coombs for prostate cancer. He was recently diagnosed with a uti and treated with antibiotics. He is in urine retention and we have been asked to see him. His us of the abdomen and pelvis was normal His ua only showed 5 wbc His wbc was normal at 6.3. Historically his history is somewhat confusing. How ever it sounds as if he was diagnosed with a low grade minimal prostate cancer years ago by Dr Diaz and or [facility]. He was followed by Dr Diaz and eventually Dr Coombs. THe status of his cancer is unknown. It sounds per his he has been having problems over the last one month. Whether the retention was precipitated by his respiratory issues is uncertain. He is not on tamsulosin. Review of Systems All systems: negative - Constitutional Denies fever, Denies weight loss - EENT Eyes: denies blurred vision Ears, nose, mouth and throat: Denies dysphagia - Cardiovascular Denies chest pain, Denies shortness of breath - Respiratory Denies cough, Denies 7 - Gastrointestinal Reports as per HPI - Genitourinary Denies dysuria, Denies hematuria - Integumentary Denies rash, Denies unusual bruising - Neurological Denies headaches, Denies syncope - Hematologic/Lymphatic Denies easy bleeding, Denies easy bruising Past Medical History Past Medical History: Coronary Artery Disease (CAD), Cancer, Diabetes Mellitus, Hyperlipidemia, Hypertension Additional Past Medical History / Comment(s): Patient states he has prostate cancer, has chosen no treatment History of Any Multi-Drug Resistant Organisms: None Reported Past Surgical History: Heart Catheterization With Stent Additional Past Surgical History / Comment(s): Back surgery years ago, neck surgery appox 2010; patient had heart catheterization with stent, states approximately 1992; recalls he had stents in groin in 2002, 2004, 2006 Past Anesthesia/Blood Transfusion Reactions: No Reported Reaction Additional Past Anesthesia/Blood Transfusion Reaction / Comm: Patient aspirated post-surgically Date of Last Stent Placement:: 1992 Past Psychological History: No Psychological Hx Reported Smoking Status: Never smoker Past Alcohol Use History: None Reported Past Drug Use History: None Reported - Past Family History Father Family Medical History: Cancer Mother Family Medical History: Diabetes Mellitus Medications and Allergies Home Medications Medication Instructions Recorded Confirmed Type Gabapentin [Neurontin] 300 mg PO TID 05/29/18 09/02/22 History Simvastatin 40 mg PO HS 05/29/18 09/02/22 History glipiZIDE XL [Glucotrol XL] 5 mg PO DAILY 05/29/18 09/02/22 History Metoprolol Tartrate [Lopressor] 25 mg PO BID 12/19/18 09/02/22 History Terazosin HCl 2 mg PO DAILY 12/19/18 09/02/22 History metFORMIN HCL [Glucophage] 500 mg PO BID 12/19/18 09/02/22 History Escitalopram Oxalate [Lexapro] 10 mg PO DAILY 09/02/22 09/02/22 History Sulfamethoxazole/Trimethoprim 1 tab PO BID 09/02/22 09/02/22 History [Bactrim DS 800-160 mg] Allergies Allergy/AdvReac Type Severity Reaction Status Date / Time No Known Allergies Allergy Verified 09/02/22 15:26 Surgical - Exam Vital Signs Temp Pulse Resp BP Pulse Ox 98.7 F 104 H 14 154/86 98 09/02/22 15:10 09/02/22 15:10 09/02/22 15:10 09/02/22 15:10 09/02/22 15:10 - General well developed, well nourished, no distress - ENT no hearing loss - Neck trachea midline - Respiratory normal expansion, normal respiratory effort - Cardiovascular Rhythm: regular - Abdomen Abdomen: soft, non tender - Genitourinary indwelling catheter normal penis with no external lesions, testicles present - Integumentary no growths - Neurologic memory loss - Musculoskeletal normal posture - Psychiatric somewhat forgetful and confused with sequence of events. oriented to time, oriented to person, oriented to place, speech is normal, other Results - Labs 09/04/22 05:12 09/04/22 05:12 Abnormal Lab Results - Last 24 Hours (Table) 09/03/22 09/03/22 09/04/22 Range/Units 07:25 07:25 05:12 RBC 3.17 L 3.52 L (4.30-5.90) m/uL Hgb 8.3 L D 9.1 L (13.0-17.5) gm/dL Hct 26.3 L 29.1 L (39.0-53.0) % Plt Count 103 L 122 L (150-450) k/uL Lymphocytes # 0.7 L (1.0-4.8) k/uL Lymphocytes # (Manual) 0.53 L (1.0-4.8) k/uL Sodium 133 L (137-145) mmol/L Carbon Dioxide 20 L (22-30) mmol/L Creatinine (0.66-1.25) mg/dL Glucose 67 L (74-99) mg/dL Calcium 7.3 L (8.4-10.2) mg/dL Total Protein 4.3 L (6.3-8.2) g/dL Albumin 2.4 L (3.5-5.0) g/dL 09/04/22 Range/Units 05:12 RBC (4.30-5.90) m/uL Hgb (13.0-17.5) gm/dL Hct (39.0-53.0) % Plt Count (150-450) k/uL Lymphocytes # (1.0-4.8) k/uL Lymphocytes # (Manual) (1.0-4.8) k/uL Sodium 132 L (137-145) mmol/L Carbon Dioxide (22-30) mmol/L Creatinine 0.61 L (0.66-1.25) mg/dL Glucose (74-99) mg/dL Calcium 7.7 L (8.4-10.2) mg/dL Total Protein (6.3-8.2) g/dL Albumin (3.5-5.0) g/dL Microbiology - Last 24 Hours (Table) 09/03/22 00:31 Blood Culture - Preliminary Blood No Growth after 24 hours 09/03/22 00:15 Blood Culture - Preliminary Blood No Growth after 24 hours 09/02/22 16:34 Blood Culture - Preliminary Blood No Growth after 24 hours 09/02/22 20:11 Gram Stain - Preliminary Sputum Sputum Culture - Preliminary Diabetes panel 09/03/22 09/03/22 09/04/22 Range/Units 07:25 19:57 05:12 Sodium 133 L 132 L (137-145) mmol/L Potassium 3.6 4.4 4.3 (3.5-5.1) mmol/L Chloride 106 102 (98-107) mmol/L Carbon Dioxide 20 L 23 (22-30) mmol/L BUN 17 12 (9-20) mg/dL Creatinine 1.02 0.61 L (0.66-1.25) mg/dL Glucose 67 L 92 (74-99) mg/dL Calcium 7.3 L 7.7 L (8.4-10.2) mg/dL AST 20 (17-59) U/L ALT 11 (4-49) U/L Alkaline Phosphatase 67 (38-126) U/L Total Protein 4.3 L (6.3-8.2) g/dL Albumin 2.4 L (3.5-5.0) g/dL Calcium panel 09/03/22 09/04/22 Range/Units 07:25 05:12 Calcium 7.3 L 7.7 L (8.4-10.2) mg/dL Albumin 2.4 L (3.5-5.0) g/dL Pituitary panel 09/03/22 09/03/22 09/04/22 Range/Units 07:25 19:57 05:12 Sodium 133 L 132 L (137-145) mmol/L Potassium 3.6 4.4 4.3 (3.5-5.1) mmol/L Chloride 106 102 (98-107) mmol/L Carbon Dioxide 20 L 23 (22-30) mmol/L BUN 17 12 (9-20) mg/dL Creatinine 1.02 0.61 L (0.66-1.25) mg/dL Glucose 67 L 92 (74-99) mg/dL Calcium 7.3 L 7.7 L (8.4-10.2) mg/dL Adrenal panel 09/03/22 09/03/22 09/04/22 Range/Units 07:25 19:57 05:12 Sodium 133 L 132 L (137-145) mmol/L Potassium 3.6 4.4 4.3 (3.5-5.1) mmol/L Chloride 106 102 (98-107) mmol/L Carbon Dioxide 20 L 23 (22-30) mmol/L BUN 17 12 (9-20) mg/dL Creatinine 1.02 0.61 L (0.66-1.25) mg/dL Glucose 67 L 92 (74-99) mg/dL Calcium 7.3 L 7.7 L (8.4-10.2) mg/dL Total Bilirubin 0.6 (0.2-1.3) mg/dL AST 20 (17-59) U/L ALT 11 (4-49) U/L Alkaline Phosphatase 67 (38-126) U/L Total Protein 4.3 L (6.3-8.2) g/dL Albumin 2.4 L (3.5-5.0) g/dL - Imaging US - kidney/bladder: report reviewed, image reviewed Assessment and Plan Assessment: Impression: syncope. Urine retention. History of prostate cancer Plan: I willreview his office chart and make further recommendations after that. The catheter should remain in place until then
[2022-09-04 20:49] LABS: Glucose,Whole Blood 113 mg/dL (70-110)
[2022-09-05] MEDS ORDERED: LORazepam 1 MG/0.5 ML VIAL IM PRN
[2022-09-05] MEDS: SODIUM CHLORIDE 0.9% 1,000 ML IV SCH ×2 (00:43→18:17)
[2022-09-05] MEDS: PIPERACILLIN-TAZOBACTAM 3.375 GM in SODIUM CHLORIDE 0.9% 100 ML IVPB SCH ×3 (01:42→18:12)
[2022-09-05 06:02] LABS: Glucose,Whole Blood 115 mg/dL (70-110)
[2022-09-05] MEDS: INSULIN ASPART (NovoLOG) 100 UNIT/ML VIAL SQ SCH ×4 (06:12→20:29)
[2022-09-05] MEDS: FERROUS SULFATE 325 MG TAB PO SCH ×2 (06:46→18:11)
[2022-09-05] MEDS ORDERED: FUROSEMIDE 10 MG/ML 4 ML VIAL IV STA (09:25)
[2022-09-05 11:23] VITALS: BMI 23.3
--- NOTE | 2022-09-05 11:56 | P.PN ---
Subjective Progress Note Date: 09/05/22 Principal diagnosis: Acute metabolic encephalopathy This is a 57-year-old male patient who came into the emergency department unresponsive. There has been significant alteration in his mentation. According to the , the patient has been having hallucinations, weakness, altered mentation, falls and today the patient was unable to give himself and he collapsed on the floor. EMS came to the scene. Blood sugar was 96 and the patient was completely unresponsive. Pupils were equal and reactive. According to the , the patient has history of prostate cancer. He was having some issues with prostatism and urinary retention. He was recently diagnosed having UTI and he was given Bactrim by his urologist. No fever. No nausea or vomiting or chest pain. No aspiration. The patient has history of peripheral neuropathy and has had history of frequent falls. He came into the ED and the patient was completely unresponsive. Immediately, cholesterol evaluation was initiated. The patient was given a CT angiogram that showed no evidence of any large vessel intracranial artery occlusion. No significant stenosis. The common and internal carotid arteries were patent. Intracranial arteries were also patent without significant stenosis. CAT scan of the brain was negative. No seizure activity. Based undergone complete unresponsiveness, the patient was intubated and placed on a mechanical ventilator. At this point in time, the patient is on no sedation. He grimaces only to painful stimulation. He has a positive cough and a gag. The patient is on a mechanical ventilator on assist control mode with a rate of 24, tidal volume 450, FiO2 of 60% with PEEP of 10. The blood gas immediately after intubation on 100% FiO2 showed a pH of 7.3 with a pCO2 of 49 and pO2 of 279. The patient had a chest x-ray that showed adequate positioning of 82. There was some left lower lobe atelectasis. The patient's WBC count is 6.3 with hemoglobin of benefit palpable 47. Normal cognition. 5. Sodium is 1:30, serum bicarbonate of 17 with a BUN of 25 and a creatinine of 2.4 this is a new onset acute kidney injury. Troponins are negative. UA showed 6 WBCs. Uri ne screen was positive for benzodiazepine. CoVID19 testing was negative. Influenza screen was negative. CAT scan of the brain showed chronic small vessel ischemic changes. Arthritic Changes of the C1. Markedly less distention of the esophagus with circumferential wall thickening. Trace pleural effusions also seen in addition to background COPD. 09/03/2022, I'm seeing the patient for a follow-up. The patient came in today emergency completely unresponsive. He was intubated and I evaluated him in the emergency department and subsequently accepted admission to the ICU. Overnight, the patient became progressively more responsive. He became slightly agitated. Such, he was started on propofol to control his agitation. This morning, he was taken off the propofol and the patient is wide awake, following commands and answering questions appropriately. He is moving all 4 extremities without limitation. He has excellent cough and a gag for now. The patient remains on a mechanical ventilator, this morning he was at a rate of 24, tidal volume of 450 mL with a ferritin of 60% and a PEEP of 10. His blood gas shows some low pO2. Nevertheless, this was a long meeting the patient did not look cyanotic or hypoxic and his pulse ox on the monitor was up to 99%. peak/static pressures are not elevated. As such, I check weaning parameters after stopping the sedation and the patient demonstrated excellent weaning parameters. She was given a spontaneous breathing trial and his pulse ox remained above 99% without any desaturations. The chest x-ray showed some small left-sided pleural effusion and some interstitial infiltrates bilaterally along with some bibasilar atelectatic change could be related to early pneumonia versus CHF/interstitial edema. The patient will be extubated today. The patient is otherwise of 5.3 with a hemoglobin of 8.3. The sodium is 133 with a potassium level of 3.6 and a chloride of 106 with a bicarb of 20. BNP is at 17 with a creatinine of 1.07. His pro calcitonin level is at 0.2. His cultures are still pending and they are negative thus far the patient was, with IV Zosyn. Postextubation, the patient was able to communicate. He was placed on oxygen at 3 L nasal cannula. Is currently on IV fluids and he is receiving normal saline at the rate of 130 mL an hour. 09/04/2022, the patient remains extubated and patient is about 40 per minute cannula. On today's chest x-ray, there is some interval worsening in the bilateral pulmonary infiltrates. He is on 4 L for now. Note that the septic workup has been negative. The patient's pro calcitonin level was minimally elevated. The white cell count is at 6.5 and the patient's hemoglobin is at 5.1 and a platelet count is at 122. Sodium is 132. BUN is at 12 with a creatinine of 0.6. Tolerating diet. Using the incentive spirometer. Awake and alert and responsive. No other significant events overnight. Ultrasound of the kidney was done and it showed no evidence of renal masses or obstruction or hydronephrosis. Nephrology consultation was also obtained and the patient was essentially cleared from a neuro standpoint. He is awake and alert and following commands. Reevaluated today on 09/05/22, patient remains in the ICU, he is on 5 L nasal cannula, does not seem to be in distress, CODE STATUS was changed to DO NOT RESUSCITATE, awaiting to transfer the patient out of the ICU to regular medical floor. Patient was extubated by Dr. Soto, and he tolerated the extubation well. He is on Zosyn, today I recommended a dose of Lasix 40 mg IV push as his chest x-ray is showing slight worsening of his interstitial edema. No labs were drawn today Objective - Vital Signs Vital signs: Vital Signs Temp 98.9 F 09/05/22 11:20 Pulse 62 09/05/22 11:33 Resp 18 09/05/22 11:33 BP 137/81 09/05/22 11:20 Pulse Ox 90 L 09/05/22 11:20 FiO2 100 09/03/22 09:00 Intake & Output 09/04/22 09/05/22 09/05/22 18:59 06:59 18:59 Intake Total 420 Output Total 2465 550 Balance -2044 Weight 73.845 kg Intake: IV 420 Magnesium Sulfate-D5w Pmx 100 1 gm In Dextrose/Water 1 100ml.bag @ 100 mls/hr IVPB Q1H [facility]AR Rx#: [id number] Sodium Chloride 0.9% 1, 320 000 ml @ 20 mls/hr IV . Q24H CEZAR Rx#:[id number] Output: Urine 2064 550 Emesis 400 Other: Voiding Method Indwelling Catheter Indwelling Catheter Indwelling Catheter # Bowel Movements 0 - Exam Physical Exam: Revealed an 87-year-old white male in no distress. Head: Atraumatic, normocephalic. HEENT:[Neck is supple.] [No neck masses.] [No thyromegaly.] [No JVD.] Chest: [Fine crackles bilaterally noted. Symmetrical chest expansion. Cardiac Exam: [Normal S1 and S2, no S3 gallop, no murmur.] Abdomen: [Soft, nontender, no megaly, no rebound, no guarding, normal bowel sounds.] Extremities: [No clubbing, no edema, no cyanosis.] Good pulses bilaterally Neurological Exam: Patient is arousable, follows simple instructions, no gross deficit noted Skin: No rashes. - Labs CBC & Chem 7: 09/04/22 05:12 09/04/22 05:12 Labs: Abnormal Lab Results - Last 24 Hours (Table) 09/04/22 09/05/22 Range/Units 20:48 06:00 POC Glucose (mg/dL) 113 H 115 H (70-110) mg/dL Microbiology - Last 24 Hours (Table) 09/02/22 20:11 Gram Stain - Final Sputum Sputum Culture - Final 09/03/22 00:31 Blood Culture - Preliminary Blood No Growth after 48 hours 09/03/22 00:15 Blood Culture - Preliminary Blood No Growth after 48 hours 09/02/22 16:34 Blood Culture - Preliminary Blood No Growth after 48 hours 09/02/22 16:34 Urine Culture - Final Urine,Catheterized Assessment and Plan Assessment: Impression: Acute metabolic encephalopathy, resolved. Acute urinary tract infection Acute kidney injury Left lower lobe atelectasis Coronary artery disease History of prostate cancer Type 2 diabetes Benign essential hypertension Dyslipidemia Status post intubation and extubation mostly for airways protection only. As noted in Dr. Soto's note. Recommendation: Continue oxygen and titrate accordingly Continue Lasix intermittently Continue to monitor renal status Continue IV fluid at KVO Incentive spirometry Sliding scale insulin Transfer out of the ICU to regular medical floor. Time with Patient: Less than 30
[2022-09-05 12:28] LABS: Glucose,Whole Blood 101 mg/dL (70-110)
--- NOTE | 2022-09-05 13:56 | P.PN ---
Subjective Progress Note Date: 09/05/22 (Patient hypoxemia on 6 L oxygen) Progress note, due to service 09/05/2022 Dictation by Destiny Segundo. [facility]. Patient seen today evaluated [id number] discussed with the RN in the ICU Dorina Also at bedside and his and his daughter Marta and discussed with them evidence of detail. During the night at 11 PM on September 04 I was called by [facility] [place] because of patient agitated and confused and tried to pull his IV and at this time I ordered for him Ativan 1 mg every 8 hour when necessary. Today I discussed with his and with his confusion consultation with psychiatry, his previous computed tomography scan has been normal and at the time of the interview today in front of his family he is clear not confused but seems to me that he may be sundowning in the dark and could be delirium but with his problem was confusion recently We consulted the psychiatry for evaluation and otherwise and treatment and possible. We discussed with the family his desaturation and also that his oxygen increased to 6 L to keep him a fluid and Dr. Jauregui saw him today and he is following the patient and we discussed with the family the possibility of having oxygen at home with the underlying history of COPD, emphysema and at home his respiratory failure. Patient also has loss of appetite and he had a protein given but he is not able to eat and is consideration of underlying depressive state and has also requested because the psychiatrist for this evaluation as well. Discussed with the family laboratories and found that his ionized calcium is normal, vitamin D was normal level as well, only difference that we have the drop of hemoglobin and we find that he has anemia and we started him on iron supplementation after meal. His echocardiogram indicating that normal with underlying pulmonary hypertension mild that's added to his list of diagnoses. And moved him from bed to the [facility] chair. However when he goes upstairs on the [facility] they will be able to do more physical therapy and I did discuss with the patient and the family that the possibility of rehabilitation in the half-way however they are resistant the the patient as well as his daughter in this idea of half-way for rehabilitation. On examination his vital signs today indicating temperature 98.9 F oral, his heart rate is regular sinus and the rate of 62 bpm and his respiratory rate is 18/m, nonlabored. And his blood pressure 137/81 with a mean arterial pressure 99. New His oxygen saturation was fluctuating between 93 on 5 L and 90 even when we increased the oxygen saturation with the 6 L of oxygen and that has been managed by the critical care and pulmonary this week is Dr. Jauregui. On the physical exam head was normocephalic and atraumatic pupils equal reactive oropharynx was negative and he had missing keys but he had natural teeth and neck was supple no JVD no thyromegaly no lymphadenopathy trachea midline. The His chest was irradiated bilateral and no wheezes no rhonchi's probably decrea sed air entry on the lower basis with the hyperinflation of the lung Abdomen is soft positive bowel sounds and extremities no edema And positive pulses bilateral and symmetrical. No neuro deficit. He had history of depression in the past however with presence in the hospital hold his medication has been held and also his diabetes mellitus medication was held and his blood sugar has been stable so far and his hospitalization and he did not need any medication at this time and his last blood sugar 101 and he never received any insulin for coverage and also he was not received any oral hypoglycemic agent l as mentioned above he lost his appetite Renal function normalise Echo Cardiogram nl function with miled pulmonary hypertention Assessment : as mention above stable except for hypoxemia 6 lit of o2 stone cath in place per urology Dr messina plan patient willbe moved to medr floor continue current tx. Objective - Vital Signs Vital signs: Vital Signs Temp 98.9 F 09/05/22 11:20 Pulse 62 09/05/22 11:33 Resp 18 09/05/22 11:33 BP 137/81 09/05/22 11:20 Pulse Ox 90 L 09/05/22 11:20 FiO2 100 09/03/22 09:00 Intake & Output 09/04/22 09/05/22 09/05/22 18:59 06:59 18:59 Intake Total 420 Output Total 2465 550 Balance -2044 Weight 73.845 kg Intake: IV 420 Magnesium Sulfate-D5w Pmx 100 1 gm In Dextrose/Water 1 100ml.bag @ 100 mls/hr IVPB Q1H [facility] Rx#: [id number] Sodium Chloride 0.9% 1, 320 000 ml @ 20 mls/hr IV . Q24H [facility] Rx#:[id number] Output: Urine 2064 550 Emesis 400 Other: Voiding Method Indwelling Catheter Indwelling Catheter Indwelling Catheter # Bowel Movements 0 - Labs CBC & Chem 7: 09/04/22 05:12 09/04/22 05:12 Labs: Abnormal Lab Results - Last 24 Hours (Table) 09/04/22 09/05/22 Range/Units 20:48 06:00 POC Glucose (mg/dL) 113 H 115 H (70-110) mg/dL Microbiology - Last 24 Hours (Table) 09/02/22 20:11 Gram Stain - Final Sputum Sputum Culture - Final 09/03/22 00:31 Blood Culture - Preliminary Blood No Growth after 48 hours 09/03/22 00:15 Blood Culture - Preliminary Blood No Growth after 48 hours 09/02/22 16:34 Blood Culture - Preliminary Blood No Growth after 48 hours 09/02/22 16:34 Urine Culture - Final Urine,Catheterized
--- NOTE | 2022-09-05 14:05 | P.PN ---
Subjective Progress Note Date: 09/05/22 Patient was seen for a follow-up. Patient initially seen by Dr. Hu. Please refer to her note for details. Patient apparently had started on Bactrim DS for an infection. Patient started having significant side effects. Patient was brought to the hospital with episode of confusion. He was intubated in the ER for airway protection. Patient subsequently extubated. Dr. Hu seen the patient, who recommended EEG. Patient now has been extubated. He is sitting in the recliner, eating lunch. O ffers no complaints except for some low back pain. Patient denies any headache, no dizziness. No abdominal pain or chest pain. He says that he has not eaten for last 2 days. Objective - Vital Signs Vital signs: Vital Signs Temp 98.9 F 09/05/22 11:20 Pulse 62 09/05/22 11:33 Resp 18 09/05/22 11:33 BP 137/81 09/05/22 11:20 Pulse Ox 90 L 09/05/22 11:20 FiO2 100 09/03/22 09:00 Intake & Output 09/04/22 09/05/22 09/05/22 18:59 06:59 18:59 Intake Total 420 Output Total 2465 550 Balance -2044 -550 Weight 73.845 kg Intake: IV 420 Magnesium Sulfate-D5w Pmx 100 1 gm In Dextrose/Water 1 100ml.bag @ 100 mls/hr IVPB Q1H [facility] Rx#: [id number] Sodium Chloride 0.9% 1, 320 000 ml @ 20 mls/hr IV . Q24H [facility] Rx#:[id number] Output: Urine 2065 550 Emesis 400 Other: Voiding Method Indwelling Catheter Indwelling Catheter Indwelling Catheter # Bowel Movements 0 - Exam Patient is alert and awake fully oriented. He knows it is August 2022 and that he is in [facility] in [place]. Speech and language functions are normal. His speech is slightly hoarse. Cranial nerves are normal. Sensations equal. - Labs CBC & Chem 7: 09/04/22 05:12 09/04/22 05:12 Labs: Abnormal Lab Results - Last 24 Hours (Table) 09/04/22 09/05/22 Range/Units 20:48 06:00 POC Glucose (mg/dL) 113 H 115 H (70-110) mg/dL Microbiology - Last 24 Hours (Table) 09/02/22 20:11 Gram Stain - Final Sputum Sputum Culture - Final 09/03/22 00:31 Blood Culture - Preliminary Blood No Growth after 48 hours 09/03/22 00:15 Blood Culture - Preliminary Blood No Growth after 48 hours 09/02/22 16:34 Blood Culture - Preliminary Blood No Growth after 48 hours 09/02/22 16:34 Urine Culture - Final Urine,Catheterized Assessment and Plan Assessment: * Episode of loss of consciousness. Dr. Hu felt could be a possible seizure and postictal state. Perhaps provoked by Bactrim versus cardiac origin. Mentation is back to normal. * Recent UTI. * Patient has some delirium last night. Delirium at present seems to have resolved. * Metabolic acidosis, resolving * Acute kidney injury, resolving. * History of prostate cancer * Reported UTI. Plan: * EEG ordered, as per recommendation from Dr. Hu. * CTA of head showed no large vessel intracranial arterial occlusion, signif icant stenosis or aneurysm. 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 No stenosis of the carotid system. Marked soft tissue thickening of the mid esophagus and dilation of the proximal esophagus. Internal medicine to address esophageal issue. * Recommend starting aspirin 81 mg daily, if no medical contra indication. * 2-D echo revealed left ventricle hypertrophy with preserved systolic function with EF 60-65%. Moderate increase septal wall thickness. Left atrial enlargement. * Hemoglobin A1c 6.0 * Lipid panel with cholesterol 19, LDL 56, HDL 32 and triglycerides 97. * Discussed with and Dr Peña in detail. * Discussed with patient and his in detail. Addendum: EEG is normal during wakefulness, drowsiness and stage II sleep. No focal, lateralized or epileptiform activity was seen. Neurologically clear.
--- NOTE | 2022-09-05 14:45 | P.CN ---
Psychiatric Consult - . Consult date: 09/05/22 Consult:: IDENTIFYING DATA: This patient is a 87-year-old , retired, male who presented to our hospital on 09/02/2022 after being found unresponsive. HISTORY OF PRESENT ILLNESS: The patient presented to the hospital , brought in after being found unresponsive. The patient was reportedly receiving treatment for a UTI with Bactrim. There was concern that the patient expressing significant encephalopathy. The patient was admitted to the ICU. Psychiatry has been consulted for evaluation and management of delirium. On 09/04/2022, the patient was noted to be agitated and confused and attempted to pull his IV. Ativan 1 mg every 8 hours when necessary was ordered. Upon evaluation by this provider, the patient is currently alert and oriented in all spheres. Present during the psychiatric evaluation is his Nohemi and his daughter Marta. The patient is agreeable to having the present during the psychiatric evaluation. Currently, the patient is alert and oriented in all spheres. He is denying any suicidal or homicidal ideation, intention, and/or plan. He is denying any auditory hallucinations. The patient however reports that he has been expressing visual hallucinations of an individual who appears around bedtime. He reports that he likes to talk to this individual and express things that have gone on in his life. He reports that this has been occurring intermittently for the past few years. His confirms this. However, the patient appears to be ego syntonic with these visual hallucinations. He is otherwise not reporting any other psychiatric symptoms and reports no previous history of psychotic symptoms. He is vehemently denying any paranoia or other delusions. The patient was presented with the option of starting medication or to help with agitation, hallucinations, and psychosis however after discussion with the patient and his family, we opted not to start any medication due to the increased risk of cardiovascular events with antipsychotics in the elderly. PAST PSYCHIATRIC HISTORY: Patient has a a history of depression. Patient denies being on any psychiatric medications. Patient denies any previous psychiatric hospitalizations. Patient denies any psychiatric outpatient follow-up. Patient reports that he was suicidal "more than 20 years ago." PAST MEDICAL HISTORY: Past Medical History: Coronary Artery Disease (CAD), Cancer, Diabetes Mellitus, Hyperlipidemia, Hypertension Additional Past Medical History / Comment(s): Patient states he has prostate cancer, has chosen no treatment History of Any Multi-Drug Resistant Organisms: None Reported Past Surgical History: Heart Catheterization With Stent Additional Past Surgical History / Comment(s): Back surgery years ago, neck surgery app[facility] 2010; patient had heart catheterization with stent, states approximately 1992; recalls he had stents in groin in 2002, 2004, 2006 Past Anesthesia/Blood Transfusion Reactions: No Reported Reaction Additional Past Anesthesia/Blood Transfusion Reaction / Comment(s): Patient aspirated post-surgically Past Psychological History: No Psychological Hx Reported Smoking Status: Never smoker Past Alcohol Use History: None Reported Past Drug Use History: None Reported ALLERGIES: NO KNOWN DRUG ALLERGIES CHEMICAL DEPENDENCY HISTORY: Patient denies any tobacco, alcohol, marijuana, or illicit drug use. Patient reports he quit tobacco for his many years ago. FAMILY PSYCHIATRIC/SUBSTANCE USE HISTORY: No reported family psychiatric or substance abuse history. SOCIAL HISTORY: Patient is currently to his for 65 years. History is employed at [employer]. MENTAL STATUS EXAM: General Appearance: Patient appears to be stated age is alert, pleasant, and cooperative. Patient appears to have good hygiene and grooming wearing hospital gown with fair eye contact. Behavior: Currently seated upright in bed eating his meal. Speech: Patient's speech is fluent and nonpressured. Mood/Affect: Patient reports their mood is "doing fine", affect is congruent and bright Suicidality/Homicidality: Patient denies having any suicidal or homicidal i deation intent or plan. Perceptions: Patient denies any current visual or auditory hallucinations. Though content/process: There is no evidence of any delusional thought content and thought process is linear and goal-directed. Memory and concentration: AOX3, grossly intact for the purposes of this session. Can spell "WORLD" backwards Judgment and insight: Fair IMPRESSIONS: Delirium - suspect secondary to ICU psychosis versus acute metabolic encephalopathy versus infection PLAN: -Continue your medical management. Please treat underlying causes of delirium including infection and electrolyte abnormalities. -At this time patient DOES NOT meet criteria for inpatient psychiatric admission. Currently, the patient is not presenting with imminent risk of harm to self or others. He is denying any suicidal or homicidal ideation. He is not overtly psychotic or manic. He is alert and oriented in all spheres. -Delirium precautions recommended with patient including - avoiding use of geno cotics and PHOTO MANAGER sedatives, limit anticholinergic medications when possible, frequent re-orientation, minimize use of restraints, open window shades during the day and close them at night -Would recommend the following medication changes/additions: No medication recommendations are made at this time. Agree with Ativan when necessary. -Psychiatry will sign off at this point, please contact with any questions. Vital Signs Temp 98.9 F 09/05/22 11:20 Pulse 62 09/05/22 11:33 Resp 18 09/05/22 11:33 BP 137/81 09/05/22 11:20 Pulse Ox 90 L 09/05/22 11:20 FiO2 100 09/03/22 09:00 Intake & Output 09/04/22 09/05/22 09/05/22 18:59 06:59 18:59 Intake Total 420 Output Total 2465 550 Balance -2044 Weight 73.845 kg Intake: IV 420 Magnesium Sulfate-D5w Pmx 100 1 gm In Dextrose/Water 1 100ml.bag @ 100 mls/hr IVPB Q1H [facility] Rx#: [id number] Sodium Chloride 0.9% 1, 320 000 ml @ 20 mls/hr IV . Q24H [facility] Rx#:[id number] Output: Urine 5 550 Emesis 400 Other: Voiding Method Indwelling Catheter Indwelling Catheter Indwelling Catheter # Bowel Movements 0 Laboratory Results WBC 6.5 k/uL (3.8-10.6) 09/04/22 05:12 RBC 3.52 m/uL (4.30-5.90) L 09/04/22 05:12 Hgb 9.1 gm/dL (13.0-17.5) L 09/04/22 05:12 Hct 29.1 % (39.0-53.0) L 09/04/22 05:12 MCV 82.7 fL (80.0-100.0) 09/04/22 05:12 MCH 25.7 pg (25.0-35.0) 09/04/22 05:12 MCHC 31.1 g/dL (31.0-37.0) 09/04/22 05:12 RDW 15.0 % (11.5-15.5) 09/04/22 05:12 Plt Count 122 k/uL (150-450) L 09/04/22 05:12 MPV 9.7 09/04/22 05:12 Neutrophils % 71 % 09/04/22 05:12 Neutrophils % (Manual) 84 % 09/03/22 07:25 Lymphocytes % 11 % 09/04/22 05:12 Lymphocytes % (Manual) 10 % 09/03/22 07:25 Monocytes % 8 % 09/04/22 05:12 Monocytes % (Manual) 3 % 09/03/22 07:25 Eosinophils % 8 % 09/04/22 05:12 Eosinophils % (Manual) 3 % 09/03/22 07:25 Basophils % 0 % 09/04/22 05:12 Neutrophils # 4.6 k/uL (1.3-7.7) 09/04/22 05:12 Neutrophils # (Manual) 4.45 k/uL (1.3-7.7) 09/03/22 07:25 Lymphocytes # 0.7 k/uL (1.0-4.8) L 09/04/22 05:12 Lymphocytes # (Manual) 0.53 k/uL (1.0-4.8) L 09/03/22 07:25 Monocytes # 0.5 k/uL (0-1.0) 09/04/22 05:12 Monocytes # (Manual) 0.16 k/uL (0-1.0) 09/03/22 07:25 Eosinophils # 0.5 k/uL (0-0.7) 09/04/22 05:12 Eosinophils # (Manual) 0.16 k/uL (0-0.7) 09/03/22 07:25 Basophils # 0.0 k/uL (0-0.2) 09/04/22 05:12 Nucleated RBCs 0 /100 WBC (0-0) 09/03/22 07:25 Manual Slide Review Performed 09/03/22 07:25 Hypochromasia Marked 09/04/22 05:12 PT 10.8 sec (9.0-12.0) 09/02/22 15:24 INR 1.0 (<1.2) 09/02/22 15:24 APTT 24.0 sec (22.0-30.0) 09/02/22 15:24 Sample Site rrad 09/02/22 16:32 ABG pH 7.30 (7.35-7.45) L 09/02/22 16:32 ABG pCO2 49 mmHg (35-45) H 09/02/22 16:32 ABG pO2 279 mmHg (83-108) H 09/02/22 16:32 ABG HCO3 25 mmol/L (21-25) 09/02/22 16:32 ABG Total CO2 26 mmol/L (19-24) H 09/02/22 16:32 ABG O2 Saturation 99.0 % (94-97) H 09/02/22 16:32 ABG Base Excess -1.9 mmol/L 09/02/22 16:32 Rod Test Yes 09/02/22 16:32 FiO2 100 % 09/02/22 16:32 Sodium 132 mmol/L (137-145) L 09/04/22 05:12 Potassium 4.3 mmol/L (3.5-5.1) 09/04/22 05:12 Chloride 102 mmol/L (98-107) 09/04/22 05:12 Carbon Dioxide 23 mmol/L (22-30) 09/04/22 05:12 Anion Gap 7 mmol/L 09/04/22 05:12 BUN 12 mg/dL (9-20) 09/04/22 05:12 Creatinine 0.61 mg/dL (0.66-1.25) L 09/04/22 05:12 Est GFR (CKD-EPI)AfAm >90 (>60 ml/min/1.73 sqM) 09/04/22 05:12 Est GFR (CKD-EPI)NonAf >90 (>60 ml/min/1.73 sqM) 09/04/22 05:12 Glucose 92 mg/dL (74-99) 09/04/22 05:12 POC Glucose (mg/dL) 101 mg/dL (70-110) 09/05/22 12:26 POC Glu Doll Eye Setter ID Meliza Louise 09/05/22 12:26 Plasma Lactic Acid Chris 1.5 mmol/L (0.7-2.0) 09/02/22 16:34 Calcium 7.7 mg/dL (8.4-10.2) L 09/04/22 05:12 Ionized Calcium Radha 4.7 mg/dL (4.5-5.3) 09/04/22 14:34 Magnesium 1.7 mg/dL (1.6-2.3) 09/04/22 05:12 Iron 10 ug/dL (65-175) L 09/04/22 05:12 TIBC 281 ug/dL (228-460) 09/04/22 05:12 % Saturation 3.62 (15.00-50.00) L 09/04/22 05:12 Transferrin 201.0 mg/dL (204.0-354.0) L 09/04/22 05:12 Total Bilirubin 0.6 mg/dL (0.2-1.3) 09/03/22 07:25 AST 20 U/L (17-59) 09/03/22 07:25 ALT 11 U/L (4-49) 09/03/22 07:25 Alkaline Phosphatase 67 U/L (38-126) 09/03/22 07:25 Troponin I <0.012 ng/mL (0.000-0.034) 09/02/22 15:24 Total Protein 4.3 g/dL (6.3-8.2) L 09/03/22 07:25 Albumin 2.4 g/dL (3.5-5.0) L 09/03/22 07:25 Prealbumin 12.6 mg/dL (18.0-42.0) L 09/04/22 05:12 Vitamin D 25-Hydroxy 32.9 ng/mL (30.0-100.0) 09/04/22 14:34 Procalcitonin 0.20 ng/mL (0.02-0.09) H 09/02/22 17:18 Urine Color Yellow 09/02/22 16:34 Urine Appearance Clear (Clear) 09/02/22 16:34 Urine pH 5.5 (5.0-8.0) 09/02/22 16:34 Ur Specific [place] 1.013 (1.001-1.035) 09/02/22 16:34 Urine Protein Negative (Negative) 09/02/22 16:34 Urine Glucose (UA) Negative (Negative) 09/02/22 16:34 Urine Ketones Negative (Negative) 09/02/22 16:34 Urine Blood Negative (Negative) 09/02/22 16:34 Urine Nitrite Negative (Negative) 09/02/22 16:34 Urine Bilirubin Negative (Negative) 09/02/22 16:34 Urine Urobilinogen <2.0 mg/dL (<2.0) 09/02/22 16:34 Ur Leukocyte Esterase Small (Negative) H 09/02/22 16:34 Urine RBC 2 /hpf (0-5) 09/02/22 16:34 Urine WBC 6 /hpf (0-5) H 09/02/22 16:34 Hyaline Casts 1 /lpf (0-2) 09/02/22 16:34 Urine Mucus Rare /hpf (None) H 09/02/22 16:34 Urine Opiates Screen Not Detected (NotDetected) 09/02/22 16:34 Ur Oxycodone Screen Not Detected (NotDetected) 09/02/22 16:34 Urine Methadone Screen Not Detected (NotDetected) 09/02/22 16:34 Ur Propoxyphene Screen Not Detected (NotDetected) 09/02/22 16:34 Ur Barbiturates Screen Not Detected (NotDetected) 09/02/22 16:34 U Tricyclic Antidepress Not Detected (NotDetected) 09/02/22 16:34 Ur Phencyclidine Scrn Not Detected (NotDetected) 09/02/22 16:34 Ur Amphetamines Screen Not Detected (NotDetected) 09/02/22 16:34 U Methamphetamines Scrn Not Detected (NotDetected) 09/02/22 16:34 U Benzodiazepines Scrn Detected (NotDetected) H 09/02/22 16:34 Urine Cocaine Screen Not Detected (NotDetected) 09/02/22 16:34 U Marijuana (THC) Screen Not Detected (NotDetected) 09/02/22 16:34 Influenza Type A (PCR) Not Detected (Not Detectd) 09/02/22 16:34 Influenza Type B (PCR) Not Detected (Not Detectd) 09/02/22 16:34 RSV (PCR) Not Detected (Not Detectd) 09/02/22 16:34 SARS-CoV-2 (PCR) Not Detected (Not Detectd) 09/02/22 16:34 Allergies Allergy/AdvReac Type Severity Reaction Status Date / Time No Known Allergies Allergy Verified 09/02/22 15:26 09/05/22 14:45
[2022-09-05 16:29] LABS: Glucose,Whole Blood 162 mg/dL (70-110)
[2022-09-05 20:14] LABS: Glucose,Whole Blood 165 mg/dL (70-110)
[2022-09-06] MEDS: PIPERACILLIN-TAZOBACTAM 3.375 GM in SODIUM CHLORIDE 0.9% 100 ML IVPB SCH ×2 (02:11→09:43)
--- NOTE | 2022-09-06 03:46 | EEG ---
ELECTROENCEPHALOGRAM REPORT PREAMBLE: This is an 87-year-old male, who had an episode of confusion and perhaps loss of consciousness. This study is performed to rule out any epileptiform activity. EEG FINDINGS: This is a 21-channel digital EEG recorded with video component, utilizing 10/20 international system with referential and bipolar montages. Background consists of well developed, well regulated moderate voltage activity in 9 to 10 hertz alpha. Background is posterior dominant and reactive to eye opening and closing. Photic driving response was not seen. Drowsiness was seen with appearance of bilaterally symmetric theta frequency rhythm. Stage 2 sleep was attained with appearance of sleep spindles and vertex waves. No focal or generalized epileptiform activity was seen. IMPRESSION: This is a normal EEG during wakefulness, drowsiness and stage 2 sleep. No focal, lateralized, or epileptiform activity was seen. MMODL / IJN: [id number] /
[2022-09-06 06:57] LABS: Glucose,Whole Blood 112 mg/dL (70-110)
[2022-09-06] MEDS: INSULIN ASPART (NovoLOG) 100 UNIT/ML VIAL SQ SCH ×4 (07:44→21:05)
[2022-09-06] MEDS: FERROUS SULFATE 325 MG TAB PO SCH ×2 (07:44→17:14)
--- NOTE | 2022-09-06 11:35 | P.PN ---
Subjective Progress Note Date: 09/06/22 Principal diagnosis: Acute metabolic encephalopathy This is a 57-year-old male patient who came into the emergency department unresponsive. There has been significant alteration in his mentation. According to the , the patient has been having hallucinations, weakness, altered mentation, falls and today the patient was unable to give himself and he collapsed on the floor. EMS came to the scene. Blood sugar was 96 and the patient was completely unresponsive. Pupils were equal and reactive. According to the , the patient has history of prostate cancer. He was having some issues with prostatism and urinary retention. He was recently diagnosed having UTI and he was given Bactrim by his urologist. No fever. No nausea or vomiting or chest pain. No aspiration. The patient has history of peripheral neuropathy and has had history of frequent falls. He came into the ED and the patient was completely unresponsive. Immediately, cholesterol evaluation was initiated. The patient was given a CT angiogram that showed no evidence of any large vessel intracranial artery occlusion. No significant stenosis. The common and internal carotid arteries were patent. Intracranial arteries were also patent without significant stenosis. CAT scan of the brain was negative. No seizure activity. Based undergone complete unresponsiveness, the patient was intubated and placed on a mechanical ventilator. At this point in time, the patient is on no sedation. He grimaces only to painful stimulation. He has a positive cough and a gag. The patient is on a mechanical ventilator on assist control mode with a rate of 24, tidal volume 450, FiO2 of 60% with PEEP of 10. The blood gas immediately after intubation on 100% FiO2 showed a pH of 7.3 with a pCO2 of 49 and pO2 of 279. The patient had a chest x-ray that showed adequate positioning of 82. There was some left lower lobe atelectasis. The patient's WBC count is 6.3 with hemoglobin of benefit palpable 47. Normal cognition. 5. Sodium is 1:30, serum bicarbonate of 17 with a BUN of 25 and a creatinine of 2.4 this is a new onset acute kidney injury. Troponins are negative. UA showed 6 WBCs. Uri ne screen was positive for benzodiazepine. CoVID19 testing was negative. Influenza screen was negative. CAT scan of the brain showed chronic small vessel ischemic changes. Arthritic Changes of the C1. Markedly less distention of the esophagus with circumferential wall thickening. Trace pleural effusions also seen in addition to background COPD. 09/03/2022, I'm seeing the patient for a follow-up. The patient came in today emergency completely unresponsive. He was intubated and I evaluated him in the emergency department and subsequently accepted admission to the ICU. Overnight, the patient became progressively more responsive. He became slightly agitated. Such, he was started on propofol to control his agitation. This morning, he was taken off the propofol and the patient is wide awake, following commands and answering questions appropriately. He is moving all 4 extremities without limitation. He has excellent cough and a gag for now. The patient remains on a mechanical ventilator, this morning he was at a rate of 24, tidal volume of 450 mL with a ferritin of 60% and a PEEP of 10. His blood gas shows some low pO2. Nevertheless, this was a long meeting the patient did not look cyanotic or hypoxic and his pulse ox on the monitor was up to 99%. peak/static pressures are not elevated. As such, I check weaning parameters after stopping the sedation and the patient demonstrated excellent weaning parameters. She was given a spontaneous breathing trial and his pulse ox remained above 99% without any desaturations. The chest x-ray showed some small left-sided pleural effusion and some interstitial infiltrates bilaterally along with some bibasilar atelectatic change could be related to early pneumonia versus CHF/interstitial edema. The patient will be extubated today. The patient is otherwise of 5.3 with a hemoglobin of 8.3. The sodium is 133 with a potassium level of 3.6 and a chloride of 106 with a bicarb of 20. BNP is at 17 with a creatinine of 1.07. His pro calcitonin level is at 0.2. His cultures are still pending and they are negative thus far the patient was, with IV Zosyn. Postextubation, the patient was able to communicate. He was placed on oxygen at 3 L nasal cannula. Is currently on IV fluids and he is receiving normal saline at the rate of 130 mL an hour. 09/04/2022, the patient remains extubated and patient is about 40 per minute cannula. On today's chest x-ray, there is some interval worsening in the bilateral pulmonary infiltrates. He is on 4 L for now. Note that the septic workup has been negative. The patient's pro calcitonin level was minimally elevated. The white cell count is at 6.5 and the patient's hemoglobin is at 5.1 and a platelet count is at 122. Sodium is 132. BUN is at 12 with a creatinine of 0.6. Tolerating diet. Using the incentive spirometer. Awake and alert and responsive. No other significant events overnight. Ultrasound of the kidney was done and it showed no evidence of renal masses or obstruction or hydronephrosis. Nephrology consultation was also obtained and the patient was essentially cleared from a neuro standpoint. He is awake and alert and following commands. Reevaluated today on 09/05/22, patient remains in the ICU, he is on 5 L nasal cannula, does not seem to be in distress, CODE STATUS was changed to DO NOT RESUSCITATE, awaiting to transfer the patient out of the ICU to regular medical floor. Patient was extubated by Dr. Soto, and he tolerated the extubation well. He is on Zosyn, today I recommended a dose of Lasix 40 mg IV push as his chest x-ray is showing slight worsening of his interstitial edema. No labs were drawn today Reevaluated today on 09/06/22, patient remains in the ICU as an overflow, he is on 5 L nasal cannula, does not seem to be in any distress. No labs were drawn today. Patient is comfortable, and overall continues to steadily improve Objective - Vital Signs Vital signs: Vital Signs Temp 98.9 F 09/06/22 09:43 Pulse 79 09/06/22 09:43 Resp 20 09/06/22 09:43 BP 143/88 09/06/22 09:43 Pulse Ox 94 L 09/06/22 09:43 FiO2 100 09/03/22 09:00 Intake & Output 09/05/22 09/06/22 09/06/22 18:59 06:59 18:59 Intake Total 680 640 Output Total 3000 760 Balance -2320 -120 Weight 73.845 kg Intake: IV 440 440 Piperacillin-Tazobactam 3 200 200 .375 gm In Sodium Chloride 0.9% 100 ml @ 25 mls/hr IVPB Q8H [facility] Rx#: [id number] Sodium Chloride 0.9% 1, 240 240 000 ml @ 20 mls/hr IV . Q24H [facility] Rx#:[id number] Oral 240 200 Output: Urine 3000 760 Other: Voiding Method Indwelling Catheter Indwelling Catheter Indwelling Catheter # Bowel Movements 0 - Exam Physical Exam: Revealed an 87-year-old white male in no distress. On 5 L nasal cannula Head: Atraumatic, normocephalic. HEENT:[Neck is supple.] [No neck masses.] [No thyromegaly.] [No JVD.] Chest: [Fine crackles bilaterally noted. Symmetrical chest expansion. Cardiac Exam: [Normal S1 and S2, no S3 gallop, no murmur.] Abdomen: [Soft, nontender, no megaly, no rebound, no guarding, normal bowel sounds.] Extremities: [No clubbing, no edema, no cyanosis.] Good pulses bilaterally Neurological Exam: Patient is arousable, follows simple instructions, no gross deficit noted Skin: No rashes. - Labs CBC & Chem 7: 09/04/22 05:12 09/04/22 05:12 Labs: Abnormal Lab Results - Last 24 Hours (Table) 09/05/22 09/05/22 09/06/22 Range/Units 16:28 20:12 06:56 POC Glucose (mg/dL) 162 H 165 H 112 H (70-110) mg/dL Microbiology - Last 24 Hours (Table) 09/03/22 00:31 Blood Culture - Preliminary Blood No Growth after 72 hours 09/03/22 00:15 Blood Culture - Preliminary Blood No Growth after 72 hours 09/02/22 16:34 Blood Culture - Preliminary Blood No Growth after 72 hours 09/02/22 20:11 Gram Stain - Final Sputum Sputum Culture - Final Assessment and Plan Assessment: Impression: Acute metabolic encephalopathy, resolved. Acute urinary tract infection Acute kidney injury Left lower lobe atelectasis Coronary artery disease History of prostate cancer Type 2 diabetes Benign essential hypertension Dyslipidemia Status post intubation and extubation mostly for airways protection only. As noted in Dr. Soto's note. Recommendation: Transfer patient out of the ICU to a regular medical floor, even consider discharge planning or placement. Continue oxygen and titrate accordingly Continue Lasix intermittently Continue to monitor renal status Continue IV fluid at KVO Incentive spirometry Sliding scale insulin Will follow as needed Time with Patient: Less than 30
[2022-09-06] MEDS ORDERED: FUROSEMIDE 10 MG/ML 2 ML VIAL IV ONE (11:36)
[2022-09-06 11:38] LABS: Glucose,Whole Blood 165 mg/dL (70-110)
[2022-09-06 16:39] LABS: Glucose,Whole Blood 132 mg/dL (70-110)
[2022-09-06] MEDS: ASPIRIN 81 MG PO SCH (17:14)
[2022-09-06 19:44] LABS: Glucose,Whole Blood 141 mg/dL (70-110)
--- NOTE | 2022-09-06 21:53 | PN ---
PROGRESS NOTE DATE OF SERVICE: 09/06/2022 An 87-year-old white male, . LOCATION: Room #260, bed 1 in ICU. NEW DATA: He has NO CODE. He is 5 feet 10 inches, he is 73.84 kg, BSA 1.91 m2, BMI 23.4 kg/m2. ALLERGIES: Unknown. SUBJECTIVE: The patient is seen today, evaluated [id number] and discussed with his as well as the patient as well as the nursing staff. He is feeling much better and improving. The patient plan for discharge home, however, we are trying to see if he needs oxygen at home and especially when he was yesterday on 6 L and today, we took him off the oxygen and nasal cannula, which was 2 L, and we will see if he needs home oxygen, and the renal case manager to arrange for oxygen if he desaturated to 88 or below with the underlying history of COPD and history of emphysema. The patient's diabetes mellitus has been fairly well controlled and currently he started to eat and his blood sugar went up to 165 and 112 and that is still, he only on insulin to scale and we are not planning for using long-acting oral hypoglycemic, however, we may be using for short-acting as well as using CBG at home. With the underlying history of blackout and syncopal episode versus unconscious as he arrived to the ER with the clear etiology was not apparent, he had also seen by Dr. Garrido, the neurologist and he did the EEG, which was negative, and he was seen also by the psychiatrist, Dr. Barber, and he did not indicate any psychiatric medication needed as well as minimizing the Ativan except for agitation only. So far, the patient doing very well. PHYSICAL EXAMINATION: VITAL SIGNS: Temperature 98.9 F oral, his heart rate stable at 79 to 69 per minute, respiratory rate 18 to 20 and nonlabored and occasional cough. He has also blood pressure of 143/88 and his pulse ox on room air was 94, that is recently. The patient received Lasix for the volume as he was on higher volume and probably volume effect by Dr. Jauregui. GENERAL: The patient is conscious, alert, oriented. HEENT: His head was normocephalic, atraumatic. Pupils equal and reactive. Conjunctiva was pale with the added iron is improving. His oropharynx, he has upper plate denture and lower natural and able to swallow and no choking. NECK: Supple. No JVD. No thyromegaly. No lymphadenopathy. Trachea midline. CHEST: Clear with the normal breath sounds. No wheezes. No rhonchi. He has increased anteroposterior diameter with hyperinflation of the chest with the underlying emphysema and history of smoking. He is an ex-smoker with COPD. ABDOMEN: Soft. Positive bowel sounds. No organ enlargement. EXTREMITIES: No edema and positive pulses. ASSESSMENT: He has a Talbot catheter present with the underlying prostatic cancer and retention of the urine, and we did consult with in absence of Dr. Donny Coombs, and we will be checked with him in regard to if he can go with the Talbot catheter or we have to do the trial of removing the catheter and see if the patient was able to pee on his own, which will be his part as I will be afraid to do that because of the urine retention with the underlying prostatic cancer and hypertrophy of the prostate. Otherwise, the patient in currently on rehab and we will try to ambulate as tolerated. He is in the ICU Overflow and we will be planning for discharge home tomorrow if we did remove the oxygen to see how much he going to be desaturated as well as we discontinued antibiotic as he had received antibiotic for 5 days, today is #5. Also, he had returned to his normal base of his renal function and he has recovered completely, and his blood pressure has been stable and with volume effect, and oxygenation is only factor that we try to clarify before he discharged, if he needs oxygen at home or not. Meanwhile, we will ask the school social worker discharge plan in regard of rehabilitation at home and conditioning as he has been deconditioned during his presence in the ICU. assessment has been extensive and it is on the diagnosis note on the computer. However, currently, the patient is stabilized and ready to be ambulated and discharged tomorrow. MMODL / IJN: [id number] /
[2022-09-07] MEDS: INSULIN ASPART (NovoLOG) 100 UNIT/ML VIAL SQ SCH ×2 (07:09→14:51)
[2022-09-07 07:10] LABS: Glucose,Whole Blood 117 mg/dL (70-110)
[2022-09-07] MEDS: FERROUS SULFATE 325 MG TAB PO SCH (07:13)
[2022-09-07] MEDS: ASPIRIN 81 MG PO SCH (10:37)
[2022-09-07] MEDS ORDERED: METOPROLOL TARTRATE 25 MG TAB PO SCH (11:15)
[2022-09-07 11:33] LABS: Glucose,Whole Blood 141 mg/dL (70-110)
--- NOTE | 2022-09-07 12:12 | P.PN ---
Subjective Progress Note Date: 09/07/22 Principal diagnosis: Acute metabolic encephalopathy This is a 57-year-old male patient who came into the emergency department unresponsive. There has been significant alteration in his mentation. According to the , the patient has been having hallucinations, weakness, altered mentation, falls and today the patient was unable to give himself and he collapsed on the floor. EMS came to the scene. Blood sugar was 96 and the patient was completely unresponsive. Pupils were equal and reactive. According to the , the patient has history of prostate cancer. He was having some issues with prostatism and urinary retention. He was recently diagnosed having UTI and he was given Bactrim by his urologist. No fever. No nausea or vomiting or chest pain. No aspiration. The patient has history of peripheral neuropathy and has had history of frequent falls. He came into the ED and the patient was completely unresponsive. Immediately, cholesterol evaluation was initiated. The patient was given a CT angiogram that showed no evidence of any large vessel intracranial artery occlusion. No significant stenosis. The common and internal carotid arteries were patent. Intracranial arteries were also patent without significant stenosis. CAT scan of the brain was negative. No seizure activity. Based undergone complete unresponsiveness, the patient was intubated and placed on a mechanical ventilator. At this point in time, the patient is on no sedation. He grimaces only to painful stimulation. He has a positive cough and a gag. The patient is on a mechanical ventilator on assist control mode with a rate of 24, tidal volume 450, FiO2 of 60% with PEEP of 10. The blood gas immediately after intubation on 100% FiO2 showed a pH of 7.3 with a pCO2 of 49 and pO2 of 279. The patient had a chest x-ray that showed adequate positioning of 82. There was some left lower lobe atelectasis. The patient's WBC count is 6.3 with hemoglobin of benefit palpable 47. Normal cognition. 5. Sodium is 1:30, serum bicarbonate of 17 with a BUN of 25 and a creatinine of 2.4 this is a new onset acute kidney injury. Troponins are negative. UA showed 6 WBCs. Uri ne screen was positive for benzodiazepine. CoVID19 testing was negative. Influenza screen was negative. CAT scan of the brain showed chronic small vessel ischemic changes. Arthritic Changes of the C1. Markedly less distention of the esophagus with circumferential wall thickening. Trace pleural effusions also seen in addition to background COPD. 09/03/2022, I'm seeing the patient for a follow-up. The patient came in today emergency completely unresponsive. He was intubated and I evaluated him in the emergency department and subsequently accepted admission to the ICU. Overnight, the patient became progressively more responsive. He became slightly agitated. Such, he was started on propofol to control his agitation. This morning, he was taken off the propofol and the patient is wide awake, following commands and answering questions appropriately. He is moving all 4 extremities without limitation. He has excellent cough and a gag for now. The patient remains on a mechanical ventilator, this morning he was at a rate of 24, tidal volume of 450 mL with a ferritin of 60% and a PEEP of 10. His blood gas shows some low pO2. Nevertheless, this was a long meeting the patient did not look cyanotic or hypoxic and his pulse ox on the monitor was up to 99%. peak/static pressures are not elevated. As such, I check weaning parameters after stopping the sedation and the patient demonstrated excellent weaning parameters. She was given a spontaneous breathing trial and his pulse ox remained above 99% without any desaturations. The chest x-ray showed some small left-sided pleural effusion and some interstitial infiltrates bilaterally along with some bibasilar atelectatic change could be related to early pneumonia versus CHF/interstitial edema. The patient will be extubated today. The patient is otherwise of 5.3 with a hemoglobin of 8.3. The sodium is 133 with a potassium level of 3.6 and a chloride of 106 with a bicarb of 20. BNP is at 17 with a creatinine of 1.07. His pro calcitonin level is at 0.2. His cultures are still pending and they are negative thus far the patient was, with IV Zosyn. Postextubation, the patient was able to communicate. He was placed on oxygen at 3 L nasal cannula. Is currently on IV fluids and he is receiving normal saline at the rate of 130 mL an hour. 09/04/2022, the patient remains extubated and patient is about 40 per minute cannula. On today's chest x-ray, there is some interval worsening in the bilateral pulmonary infiltrates. He is on 4 L for now. Note that the septic workup has been negative. The patient's pro calcitonin level was minimally elevated. The white cell count is at 6.5 and the patient's hemoglobin is at 5.1 and a platelet count is at 122. Sodium is 132. BUN is at 12 with a creatinine of 0.6. Tolerating diet. Using the incentive spirometer. Awake and alert and responsive. No other significant events overnight. Ultrasound of the kidney was done and it showed no evidence of renal masses or obstruction or hydronephrosis. Nephrology consultation was also obtained and the patient was essentially cleared from a neuro standpoint. He is awake and alert and following commands. Reevaluated today on 09/05/22, patient remains in the ICU, he is on 5 L nasal cannula, does not seem to be in distress, CODE STATUS was changed to DO NOT RESUSCITATE, awaiting to transfer the patient out of the ICU to regular medical floor. Patient was extubated by Dr. Soto, and he tolerated the extubation well. He is on Zosyn, today I recommended a dose of Lasix 40 mg IV push as his chest x-ray is showing slight worsening of his interstitial edema. No labs were drawn today Reevaluated today on 09/06/22, patient remains in the ICU as an overflow, he is on 5 L nasal cannula, does not seem to be in any distress. No labs were drawn today. Patient is comfortable, and overall continues to steadily improve Reevaluated today on 09/07/22, patient remains in the ICU as an overflow, he is now on room air, doing well, O2 sats is 95%. No further episodes of delirium or psychosis. Patient is doing great, and I'm recommending discharging the patient home if agreeable with the admitting physician. Objective - Vital Signs Vital signs: Vital Signs Temp 97.9 F 09/07/22 08:00 Pulse 63 09/07/22 08:00 Resp 17 09/07/22 08:00 BP 173/90 09/07/22 08:00 Pulse Ox 95 09/07/22 08:00 FiO2 100 09/03/22 09:00 Intake & Output 09/06/22 09/07/22 09/07/22 18:59 06:59 18:59 Intake Total 100 Output Total 1600 860 250 Balance -1500 -860 -250 Intake: IV 100 Piperacillin-Tazobactam 3 100 .375 gm In Sodium Chloride 0.9% 100 ml @ 25 mls/hr IVPB Q8H [facility] Rx#: [id number] Output: Urine 1600 860 250 Other: Voiding Method Indwelling Catheter Indwelling Catheter Indwelling Catheter # Bowel Movements 0 - Exam Physical Exam: Revealed an 87-year-old white male in no distress. On room air Head: Atraumatic, normocephalic. HEENT:[Neck is supple.] [No neck masses.] [No thyromegaly.] [No JVD.] Chest: [Fine crackles bilaterally noted. Symmetrical chest expansion. Cardiac Exam: [Normal S1 and S2, no S3 gallop, no murmur.] Abdomen: [Soft, nontender, no megaly, no rebound, no guarding, normal bowel sounds.] Extremities: [No clubbing, no edema, no cyanosis.] Good pulses bilaterally Neurological Exam: Patient is arousable, follows simple instructions, no gross deficit noted Skin: No rashes. - Labs CBC & Chem 7: 09/04/22 05:12 09/04/22 05:12 Labs: Abnormal Lab Results - Last 24 Hours (Table) 09/06/22 09/06/22 09/07/22 Range/Units 16:38 19:42 07:08 POC Glucose (mg/dL) 132 H 141 H 117 H (70-110) mg/dL 09/07/22 Range/Units 11:32 POC Glucose (mg/dL) 141 H (70-110) mg/dL Microbiology - Last 24 Hours (Table) 09/03/22 00:15 Blood Culture - Preliminary Blood No Growth after 96 hours 09/03/22 00:31 Blood Culture - Preliminary Blood No Growth after 96 hours 09/02/22 16:34 Blood Culture - Preliminary Blood No Growth after 96 hours Assessment and Plan Assessment: Impression: Acute metabolic encephalopathy, resolved. Acute urinary tract infection Acute kidney injury Left lower lobe atelectasis Coronary artery disease History of prostate cancer Type 2 diabetes Benign essential hypertension Dyslipidemia Status post intubation and extubation mostly for airways protection only. As noted in Dr. Soto's note. Recommendation: Will recommend discharging the patient home or may need social worker aide for placement. Continue Lasix intermittently, on outpatient basis. Will follow as needed Time with Patient: Less than 30
[2022-09-07 14:47] VITALS: BP 142/71; PULSE 60; RESP 16; TEMP 98.3
[2022-09-07] MEDS ORDERED: ATORVASTATIN 10 MG TAB PO SCH (21:00)
--- NOTE | 2022-09-08 09:37 | DS ---
DISCHARGE SUMMARY An 87-year-old male, . He is in ICU overflow and 260 bed 1. NEW DATA: He has NO CODE. His height 5 feet 10 inches. Weight 73.845 kg, BSA 1.91 m2, BMI 23.4 kg. ALLERGIES: Unknown. DISPOSITION: The patient in stable general condition for discharge today, he requested to go home and he will be going home accompanied with his and his daughter. FINAL DIAGNOSES: 1. Unconscious with probable syncopal. Seen by the neurologist. 2. Acute kidney injury, associated with severe dehydration. 3. Metabolic acidosis with the possibility associated with medication. 4. Diabetes mellitus type 2. 5. Anemia with dehydration with the underlying dropped hemoglobin from 10 to 8, 2 g. 6. Iron deficiency anemia. 7. Normotensive to hypertensive. 8. History of delirium, short-lived, stable on discharge. Seen by a neurologist. 9. EEG negative. No evidence of seizures. 10.Normal CT scan, angio. 11.No evidence of strokes. 12.Echocardiogram was normal ejection fraction with no evidence of congestive heart failure. 13.History of hypertension with hypertensive heart disease. 14.Prostatic cancer has been chronically present and has been followed for the last 10 years or more by Urology. 15.with underlying urinary retention on admission. Urology consult requested and seen by Dr. Sexton, to be followed by Dr. Donny Coombs and they recommended to continue with the Talbot catheter until seen in their office. 16.No evidence of urinary tract infection. 17.Other medication could be involved for his arrival with unconscious, could be. a. Metformin. b. Gabapentin. c. Bactrim DS. 18.The patient's stated that after he took 6 pills, started to have confusion and disorientation with the probable interaction of drugs. 19.Severe dehydration with elevated creatinine with acute kidney injury resolved completely and he went back with hydration to the baseline. 20.Moderate protein calorie deficiency with the low pre-albumin and low protein and low albumin. HISTORY: The patient presentation to the emergency room unconscious and intubated and resuscitated and was mainly as mentioned it is respiratory in nature. Procedure done, ultrasound of the abdomen. No evidence of solid renal mass or obstruction and a small left renal cortical cyst. That was done after the Talbot catheter with his right kidney 10.5 x 5 x 5.2, and the left kidney 10.3 x 4.8 x 6.6 cm. Initial chest x-ray indicating possible interstitial edema, basilar atelectasis versus pneumonia and congestive heart failure could not be excluded. However, clinically none of these was accurate. He has COPD and emphysema. Echocardiogram was done and was indicating ejection fraction 60% to 65% of the left ventricular cavity is normal and mild right ventricular dilatation with mild pulmonary hypertension. Normal right atrium. Left atrium, mildly increased left atrial volume. Mitral valve normal and aortic valve normal indicating normal EEG and no focal lateralization or epileptiform activities. Psychiatric consultation by Dr. Sacha Peña on the record and neurological examination and consultation on the record. CT scan angiogram has been done also and the result indicating on admission that left vertebral artery directly from the aortic arch distal to the left subclavian artery. Radiology suspect moderate stenosis in its origin. On the right, he had appeared to be severe stenosis at the origin of the right vertebral artery. Otherwise, both vertebral arteries appear to be patent throughout the course. Mild atherosclerotic calcification in the right carotid artery. No significant stenosis of either right common or internal carotid artery. Left common and internal carotid arteries widely patent, tortuous left internal carotid artery. Impression is, there is marked tissue thickening of the mid esophagus and dilatation of the proximal esophagus appropriate for further evaluation and exclude underlying neoplasm or abnormalities and he had a small effusion of the pulmonary artery hypertension. This is the CT scan on admission in the emergency room. Impression at the time of admission, they did intubation with fiberoptic videoscope size 3, the tube size was 7.5 and at that time, Critical Care, and respiratory failure, acute kidney injury, admitted to Critical Care and was seen by the ER physician, was found unresponsive and they stated discovered to be unresponsive at home and they called EMS and brought him to the ER and blood sugar was 96 and he was not responsive, the normal equal pupil, and at that time they called the Critical Care, Dr. Soto, who did see the patient as well. On the hospitalization in the ICU, the patient was treated, monitored with the endotracheal tube and ventilator on the admission date and then subsequently on the following date, the patient extubated at [address] Soto after he evaluated the patient and the patient able to subsequently speak and talk and swallow. He has episodic hypoxemia and his oxygen was adjusted by the Pulmonary and with the progressive treatment, he was also started on antibiotic Zosyn for questionable underlying aspiration during these intubations and he received that 4 or 5 days and today he has discontinued the IV fluid as well as the antibiotic on 09/06/2022. The patient had physical therapy during his presence in the ICU and moved to the Corine chair and with the stability of his blood pressure, able to eat again after he had laboratory indicating intermediate. The patient during his hospitalization checked for anemia with the drop of hemoglobin from 10 to 8, found that he has iron deficiency anemia, which supplemented with oral iron with meals. He will be continuing to be discharged with the iron supplementation followed as outpatient. There is no evidence of pneumonia and he had evidence of emphysema and COPD. With a history of smoker for 35 years 1 pack per day. With this he had no evidence of swelling of his legs or no evidence of congestive heart failure. No abdominal pain. On the current examination on the discharge, the patient on discharge was in stable general condition. His vital signs stable. Temperature 97.9 F oral. His pulse rate in the 63, regular sinus. Respiratory rate 17, nonlabored. His blood pressure was fluctuating and 144/94 and 173/90, and his oral antihypertensive medication was started and also his oxygen saturation on room air was 95 and I awoke the patient to see if he is desaturated or not and Dr. Soto will be seeing him in the future and do the sleep apnea test to see if during the night he become desaturated. With the patient's general condition, the recovery of his renal function resolved the acute kidney injury and checking the blood sugar with the underlying CBG and POC has been stable between 117 and 141, and we adjusted his medication and discontinuation of the medication that can cause metabolic acidosis as well as lethargy and confusion and disorientation. PHYSICAL EXAMINATION: GENERAL: Currently on the discharge, the patient is in stable general condition. HEENT: His head was normocephalic, atraumatic. Pupils equal, reactive. NECK: Supple. Moving neck with no restriction. Arms normal. CHEST: Clear. HEART: Clear. No wheezes, no rhonchi. The heart was regular sinus rhythm. ABDOMEN: Soft, positive bowel sounds and he did not have a good meal so far and he will be using stool softener [id number] to have the bowel movement. EXTREMITIES: No edema and positive pulses bilateral. NEUROLOGIC: No neurological deficit. PSYCHIATRIC: No psychiatric deficits. MEDICATIONS ON DISCHARGE: 1. Glipizide 2.5 mg once daily with the underlying questionable history of low blood sugar. 2. Currently will be on atorvastatin 10 mg once a day at bedtime instead of simvastatin. 3. Aspirin 81 mg. 4. Ferrous sulfate added to his previous medication for hypertension, which is metoprolol tartrate 25 mg twice a day. We will be seeing him next week and medication was sent to [facility] pharmacy as outpatient and he will be discharged home today to follow up with the consulting physician, which is Dr. Soto as well as myself next week and other physician as Nephrology if needed. However, he has recovered and they signed out on his case. MMODL / IJN: [id number] /
--- NOTE | 2022-09-14 20:08 | P.PN ---
Subjective Progress Note Date: 09/06/22 09/06/2022: Patient was seen for a follow-up. Patient is sitting comfortably in the recliner. Patient's family members were also present. Patient apparently walked. Antibiotics have been stopped. Patient denies any new neurological symptoms. Patient stayed stable overnight, with no confusion or delirium. Patient has not been started on aspirin yet. 09/05/2022: Patient was seen for a follow-up. Patient initially seen by Dr. Hu. Please refer to her note for details. Patient apparently had started on Bactrim DS for an infection. Patient started having significant side effects. Patient was brought to the hospital with episode of confusion. He was intubated in the ER for airway protection. Patient subsequently extubated. Dr. Hu seen the patient, who recommended EEG. Patient now has been extubated. He is sitting in the recliner, eating lunch. Offers no complaints except for some low back pain. Patient denies any headache, no dizziness. No abdominal pain or chest pain. He says that he has not eaten for last 2 days. Objective - Vital Signs Vital signs: Vital Signs Temp 98.9 F 09/06/22 09:43 Pulse 79 09/06/22 09:43 Resp 16 09/06/22 13:00 BP 143/88 09/06/22 09:43 Pulse Ox 93 L 09/06/22 13:00 FiO2 100 09/03/22 09:00 Intake & Output 09/05/22 09/06/22 09/06/22 18:59 06:59 18:59 Intake Total 680 640 100 Output Total 3000 760 1275 Balance -2320 -120 -1175 Weight 73.845 kg Intake: IV 440 440 100 Piperacillin-Tazobactam 3 200 200 100 .375 gm In Sodium Chloride 0.9% 100 ml @ 25 mls/hr IVPB Q8H [facility] Rx#: [id number] Sodium Chloride 0.9% 1, 240 240 000 ml @ 20 mls/hr IV . Q24H [facility] Rx#:[id number] Oral 240 200 Output: Urine 3000 760 1275 Other: Voiding Method Indwelling Catheter Indwelling Catheter Indwelling Catheter # Bowel Movements 0 - Exam Patient is alert and awake fully oriented. He knows it is August 2022 and that he is in [facility] in [place]. Speech and language functions are normal. His speech is slightly hoarse. Cranial nerves are normal. No ataxia for [id number] testing. Sensations equal. - Labs CBC & Chem 7: 09/04/22 05:12 09/04/22 05:12 Labs: Abnormal Lab Results - Last 24 Hours (Table) 09/05/22 09/05/22 09/06/22 Range/Units 16:28 20:12 06:56 POC Glucose (mg/dL) 162 H 165 H 112 H (70-110) mg/dL 09/06/22 Range/Units 11:37 POC Glucose (mg/dL) 165 H (70-110) mg/dL Microbiology - Last 24 Hours (Table) 09/03/22 00:31 Blood Culture - Preliminary Blood No Growth after 72 hours 09/03/22 00:15 Blood Culture - Preliminary Blood No Growth after 72 hours 09/02/22 16:34 Blood Culture - Preliminary Blood No Growth after 72 hours 09/02/22 20:11 Gram Stain - Final Sputum Sputum Culture - Final Assessment and Plan Assessment: * Episode of loss of consciousness. Dr. Hu felt could be a possible seizure and postictal state. Perhaps provoked by Bactrim versus cardiac origin. Mentation is back to normal. * Recent UTI. * Patient has some delirium last night. Delirium at present seems to have resolved. * Metabolic acidosis, resolving * Acute kidney injury, resolving. * History of prostate cancer * Reported UTI. Plan: * EEG is normal during wakefulness, drowsiness and stage II sleep. No focal, lateralized or epileptiform activity was seen. * CTA of head showed no large vessel intracranial arterial occlusion, significant stenosis or aneurysm. 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 No stenosis of the carotid system. Marked soft tissue thickening of the mid esophagus and dilation of the proximal esophagus. Internal medicine to address esophageal issue. * Patient has significant vasculopathy as above. Recommend starting aspirin 81 mg daily, if no medical contra indication. The nurse discussed with u rologist, and was cleared for aspirin. Patient started on aspirin 81 mg daily. * 2-D echo revealed left ventricle hypertrophy with preserved systolic function with EF 60-65%. Moderate increase septal wall thickness. Left atrial enlargement. * Hemoglobin A1c 6.0 * Lipid panel with cholesterol 19, LDL 56, HDL 32 and triglycerides 97. Continue Lipitor 10 mg daily. * Discussed with patient and his in detail. * Neurologically clear.
== END 2022-09-07 15:05 | disposition home or self-care (01) | DRG 689 ==
LOC: EC 15:10 → 2SICU 17:10
PROVIDERS: ADMIT Internal Medicine; ATTEND Internal Medicine
PROC: 0D9670Z Drainage of Stomach with Drainage Device, Via Natural or Artificial Opening (ICD-10-PCS; principal; 2022-09-02)
PROC: 0BH18EZ Insertion of Endotracheal Airway into Trachea, Via Natural or Artificial Opening Endoscopic (ICD-10-PCS; 2022-09-02)
PROC: 5A1935Z Respiratory Ventilation, Less than 24 Consecutive Hours (ICD-10-PCS; 2022-09-02)
DX: N39.0 Urinary tract infection, site not specified (principal); G93.41 Metabolic encephalopathy; J96.91 Respiratory failure, unspecified with hypoxia; J90 Pleural effusion, not elsewhere classified; E46 Unspecified protein-calorie malnutrition; N17.9 Acute kidney failure, unspecified; E87.20 Acidosis, unspecified; E87.1 Hypo-osmolality and hyponatremia; J98.11 Atelectasis; F05 Delirium due to known physiological condition; I27.29 Other secondary pulmonary hypertension; E11.649 Type 2 diabetes mellitus with hypoglycemia without coma; J43.9 Emphysema, unspecified; C61 Malignant neoplasm of prostate; I11.9 Hypertensive heart disease without heart failure; E11.42 Type 2 diabetes mellitus with diabetic polyneuropathy; E11.51 Type 2 diabetes mellitus with diabetic peripheral angiopathy without gangrene; D50.9 Iron deficiency anemia, unspecified; Z95.820 Peripheral vascular angioplasty status with implants and grafts; F32.A Depression, unspecified; I07.1 Rheumatic tricuspid insufficiency; I65.21 Occlusion and stenosis of right carotid artery; E83.51 Hypocalcemia; E86.0 Dehydration; Z66 Do not resuscitate; T38.3X5A Adverse effect of insulin and oral hypoglycemic [antidiabetic] drugs, initial encounter; I25.10 Atherosclerotic heart disease of native coronary artery without angina pectoris; E78.5 Hyperlipidemia, unspecified; I45.10 Unspecified right bundle-branch block; N40.0 Benign prostatic hyperplasia without lower urinary tract symptoms; R29.6 Repeated falls; N40.1 Benign prostatic hyperplasia with lower urinary tract symptoms; R33.8 Other retention of urine; N28.1 Cyst of kidney, acquired; R00.0 Tachycardia, unspecified; R79.89 Other specified abnormal findings of blood chemistry; M47.814 Spondylosis without myelopathy or radiculopathy, thoracic region; Z20.822 Contact with and (suspected) exposure to COVID-19; Z79.84 Long term (current) use of oral hypoglycemic drugs; Z79.899 Other long term (current) drug therapy; Z79.891 Long term (current) use of opiate analgesic; Z91.81 History of falling; Z95.5 Presence of coronary angioplasty implant and graft; Z28.310 Unvaccinated for COVID-19; Z87.891 Personal history of nicotine dependence; Z86.79 Personal history of other diseases of the circulatory system; S22.050S Wedge compression fracture of T5-T6 vertebra, sequela; Z68.20 Body mass index [BMI] 20.0-20.9, adult
CPT/HCPCS: 36415; 36600; 70450; 70496; 70498; 71045; 72125; 76770; 80048; 80053; 80306; 81001; 82306; 82330; 82805; 83540; 83550; 83605; 83735; 84132; 84134; 84145; 84484; 85025; 85610; 85730; 87040; 87070; 87086; 87205; 87636; 93005; 93306; 94002; 94003; 95816; 96361; 96365; 96366; 96375; 99291

== ENCOUNTER → 2022-09-29 | Outpatient (CLI) | payer MEDICARE ==
[2022-09-29 18:23] LABS: Basophils # (A) 0.03 X 10*3/uL (0.00-0.10); Basophils % (A) 0.5 %; Eosinophils % (A) 16.3 %; HCT 39.1 % (39.6-50.0); HGB 11.6 g/dL (13.0-17.0); Immature Grans, Automated 0.4 %; Lymphocytes # (A) 0.74 X 10*3/uL (0.90-5.00); Lymphocytes % (A) 13.4 %; MCH 24.4 pg (27.0-32.0); MCHC 29.7 g/dL (32.0-37.0); MCV 82.1 fL (80.0-97.0); Mean Platelet Volume 10.4 fL (9.5-12.2); NRBC Per 100 WBC 0 /100 WBCS (0.0-0.0); Neutrophils # (A) 3.34 X 10*3/uL (1.80-7.70); Neutrophils % (A) 60.4 %; Platelet Count 167 X 10*3/uL (140-440); RBC 4.76 X 10*6/uL (4.40-5.60); RDW 15.3 % (11.5-14.5); WBC 5.53 X 10*3/uL (4.50-10.00)
[2022-09-29 18:54] LABS: Chol/HDL Ratio 3.05 Ratio; Ferritin 69.6 ng/mL (22.0-322.0); LDL Cholesterol,Calculated 65.4 mg/dL (0.0-131.0)
[2022-09-29 18:55] LABS: % Iron Saturation 9.58 (15.00-50.00); ALT 11 U/L (10-49); AST 13 U/L (14-35); African American GFR (CKD) 104.5 (60.0-200.0); Albumin 3.8 g/dL (3.8-4.9); Albumin/Globulin Ratio 1.62 (1.60-3.17); Alkaline Phosphatase 113 U/L (41-126); Blood Urea Nitrogen 7.8 mg/dL (9.0-27.0); Calcium 9.3 mg/dL (8.7-10.3); Carbon Dioxide 27.3 mmol/L (20.0-27.5); Chloride 99 mmol/L (96-109); Globulin 2.4 g/dL (1.6-3.3); Glucose 130 mg/dL (70-110); Iron 35 ug/dL (65-175); Magnesium 1.9 mg/dL (1.5-2.4); Non-African American GFR(CKD) 90.2 (60.0-200.0); Phosphorus 4.1 mg/dL (2.4-5.1); Potassium 4.2 mmol/L (3.5-5.5); Sodium 136 mmol/L (135-145); Total Iron Binding Capacity 365 ug/dL (228-460); Total Protein 6.2 g/dL (6.2-8.2); Uric Acid 3.4 mg/dL (3.7-8.7)
[2022-09-29 19:15] LABS: Erythrocyte Sedimentation Rate 10 mm/Hr (0-20)
== END | disposition home or self-care (01) ==
LOC: LABWHC1 11:41
PROVIDERS: ATTEND Internal Medicine
DX: C61 Malignant neoplasm of prostate (principal); N40.0 Benign prostatic hyperplasia without lower urinary tract symptoms; J44.9 Chronic obstructive pulmonary disease, unspecified; M10.9 Gout, unspecified; N18.30 Chronic kidney disease, stage 3 unspecified; N39.0 Urinary tract infection, site not specified; M81.0 Age-related osteoporosis without current pathological fracture; N13.9 Obstructive and reflux uropathy, unspecified; E78.5 Hyperlipidemia, unspecified; D63.1 Anemia in chronic kidney disease; Z46.6 Encounter for fitting and adjustment of urinary device
CPT/HCPCS: 36415; 80053; 80061; 82728; 83036; 83540; 83550; 83735; 84100; 84443; 84550; 85025; 85652